=== PATIENT | male | born 1945 | race Caucasian/White ===

== ENCOUNTER 2019-03-27 | Outpatient (CLI) | payer MEDICARE | END 2019-03-27 14:28 | disposition home or self-care (01) | DX: J44.9 Chronic obstructive pulmonary disease, unspecified (principal) | CPT/HCPCS: 71046 ==

== ENCOUNTER 2019-03-27 13:12 | Outpatient (CLI) | payer MEDICARE ==
[~2019-03-27 13:12] MED LIST: ALBUTEROL NEB 2.5 MG/3 ML INH SCH
== END 2019-03-27 13:13 | disposition home or self-care (01) ==
LOC: RT 13:12
PROVIDERS: ATTEND Internal Medicine
DX: J44.9 Chronic obstructive pulmonary disease, unspecified (principal); M16.0 Bilateral primary osteoarthritis of hip
CPT/HCPCS: 71046; 94060

== ENCOUNTER 2019-08-29 12:18 | Inpatient (IN) | payer MEDICARE ==
--- NOTE | 2019-08-29 12:43 | ED Physician Documentation ---
PD HPI DYSPNEA - Stated complaint Stated Complaint: LOW O2 SAT - Chief complaint Chief Complaint: Resp - History obtained from History obtained from: Patient - History of Present Illness Timing - onset: How many days ago (History of COPD and uses an inhaler several times a day at baseline. Normally no oxygen. He has had several days to week of progressive cough and wheezing and trouble breathing. Seen at PMD office and noted to have sats in the low 80s on room air and referred to the ER. He is able to talk in sentences here but some work of breathing) Timing - onset during: Light activity Timing - duration: Days (several days) Timing - details: Gradual onset, Still present Inciting event(s): URI (Has a feeling of weakness, chills, cough for the last several days to week with progressive dyspnea), Exposure (ie smoke) (He had started feeling ill after cleaning out his storage area. It was he did an cemented area so no molds per se but there was some dust to it.). No: Out of meds Improved by: Rest Worsened by: Exertion, Coughing Associated symptoms: Cough, Wheezing. No: Hemoptysis, Chest pain / discomfort, Palpitations, Bilateral edema Similar symptoms before: Has not had sx before (Does have history of COPD with inhaler use over the last 6 months or so but has not had trouble breathing to this degree ever before.) Recently seen: Clinic (Went to the clinic today and was referred up to the ER.) Review of Systems Constitutional: reports: Chills, Myalgias. denies: Fever Nose: reports: Congestion Throat: denies: Sore throat Cardiac: denies: Chest pain / pressure, Palpitations Respiratory: reports: Dyspnea, Cough, Wheezing GI: denies: Nausea, Vomiting, Diarrhea Skin: denies: Rash, Lesions Neurologic: reports: Generalized weakness. denies: Focal weakness, Numbness, Altered mental status, Headache PD PAST MEDICAL HISTORY - Past Medical History Cardiovascular: None Respiratory: COPD Neuro: None Endocrine/Autoimmune: None - Present Medications Home Medications: Ambulatory Orders Medication Instructions Recorded Confirmed Budesonide/Formoterol Fumarate 2 puffs INH BID 08/29/19 08/29/19 [Symbicort 160-4.5 Mcg Inhaler] Ipratropium/Albuterol [Combivent 1 puffs INH QID 08/29/19 08/29/19 Respimat] hydrOXYzine HCL [Hydroxyzine HCl] 25 mg PO QID PRN 08/29/19 08/29/19 predniSONE [Deltasone] 20 mg PO DAILYWM 08/29/19 08/29/19 - Allergies Allergies/Adverse Reactions: Allergies Allergy/AdvReac Type Severity Reaction Status Date / Time Penicillins Allergy Unknown Verified 08/29/19 12:36 PD ED PE NORMAL - Vitals Vital signs reviewed: Yes - General General: Alert and oriented X 3, Well developed/nourished, Other (He is able to talk in sentences. He is having some accessory muscle use and has diminished breath sounds and diffuse wheezing.) - HEENT HEENT: Ears normal, Moist mucous membranes, Pharynx benign - Neck Neck: Supple, no meningeal sign, No adenopathy - Cardiac Cardiac: RRR, No murmur - Respiratory Respiratory: No: Clear bilaterally (Diffuse wheezing with distant breath sounds. There is congested cough. There is no coarse sounds on lungs.) - Abdomen Abdomen: Soft, Non tender - Back Back: No CVA TTP - Derm Derm: Normal color, Warm and dry - Extremities Extremities: No tenderness to palpate, Normal ROM s pain, No edema, No calf tenderness / cord - Neuro Neuro: Alert and oriented X 3, No motor deficit, Normal speech Eye Opening: Spontaneous Motor: Obeys Commands Verbal: Oriented GCS Score: 15 Results - Vitals Vitals: Vital Signs - 24 hr 08/29/19 08/29/19 08/29/19 12:36 12:46 13:44 Temperature 36.5 C Heart Rate 97 87 85 Respiratory 22 22 20 Rate Blood Pressure 102/70 O2 Saturation 83 L 91 L 08/29/19 08/29/19 08/29/19 15:01 15:42 16:00 Temperature Heart Rate 93 95 Respiratory 20 23 20 Rate Blood Pressure 110/75 89/58 L O2 Saturation 96 93 08/29/19 08/29/19 16:18 16:21 Temperature Heart Rate 92 93 Respiratory 20 Rate Blood Pressure 123/87 H O2 Saturation 98 Oxygen O2 Source BIPAP Oxygen Flow Rate 3 - Labs Labs: Laboratory Tests 08/29/19 08/29/19 08/29/19 13:22 13:22 13:22 WBC 7.5 RBC 4.73 Hgb 14.9 Hct 46.2 MCV 97.7 H MCH 31.5 H MCHC 32.3 RDW 13.2 Plt Count 222 MPV 9.6 Neut # (Auto) Not Reportable Lymph # (Auto) Not Reportable [place] # (Auto) Not Reportable Eos # (Auto) Not Reportable Baso # (Auto) Not Reportable Absolute Nucleated RBC Not Reportable Total Counted 100 Band Neuts % (Manual) 19 H Abnorm Lymph % (Manual) 0 Nucleated RBC % Not Reportable Neutrophils # (Manual) 5.6 Lymphocytes # (Manual) 0.5 L Monocytes # (Manual) 1.4 H Eosinophils # (Manual) 0.0 Basophils # (Manual) 0.0 Differential Comment MANUAL DIFFERENTIAL Manual Slide Review Indicated Platelet Estimate NORMAL (130-450,000) Platelet Morphology NORMAL APPEARANCE RBC Morph Micro Appear NORMAL APPEARANCE Sodium Potassium Chloride Carbon Dioxide Anion Gap BUN Creatinine Estimated GFR (MDRD) Glucose Calcium Magnesium Total Bilirubin AST ALT Alkaline Phosphatase Troponin I High Sens 119.1 H* B-Natriuretic Peptide 384 H Total Protein Albumin Globulin Albumin/Globulin Ratio Lipase 08/29/19 13:22 WBC RBC Hgb Hct MCV MCH MCHC RDW Plt Count MPV Neut # (Auto) Lymph # (Auto) [place] # (Auto) Eos # (Auto) Baso # (Auto) Absolute Nucleated RBC Total Counted Band Neuts % (Manual) Abnorm Lymph % (Manual) Nucleated RBC % Neutrophils # (Manual) Lymphocytes # (Manual) Monocytes # (Manual) Eosinophils # (Manual) Basophils # (Manual) Differential Comment Manual Slide Review Platelet Estimate Platelet Morphology RBC Morph Micro Appear Sodium 137 Potassium 4.4 Chloride 99 L Carbon Dioxide 28 Anion Gap 10.0 BUN 35 H Creatinine 0.9 Estimated GFR (MDRD) 82 L Glucose 134 H Calcium 9.2 Magnesium 2.1 Total Bilirubin 0.7 AST 123 H ALT 141 H Alkaline Phosphatase 162 H Troponin I High Sens B-Natriuretic Peptide Total Protein 7.3 Albumin 3.8 Globulin 3.5 Albumin/Globulin Ratio 1.1 Lipase 21 L - Rads (name of study) chest xray Radiology: Prelim report reviewed (Scarring noted in the right lower lung field unchanged from prior. There are no acute infiltrates seen. No pneumothorax.), See rad report PD MEDICAL DECISION MAKING - ED course Complexity details: reviewed results, re-evaluated patient (Use still having some work of breathing and some retractions after several nebulizers. He is still able to talk in sentences. However he did seem to be getting a little tired. Saturations were still adequate. He had a couple of episodes of apparent A. fib for just a few minutes and then back to sinus. We will initiate BiPAP to see if that is easier for him.), considered differential (Sounds like COPD with likely bronchitis and respiratory illness. Concern for potential bacterial so we will give some antibiotics as well as steroids and nebulizer treatments.), d/w patient Departure - Departure Disposition: 66 [facility] DC/Xfer Clinical Impression: COPD exacerbation Acute bronchitis Qualifiers: Bronchitis organism: unspecified organism Qualified Code(s): J20.9 - Acute bronchitis, unspecified Condition: Stable Record reviewed to determine appropriate education?: Yes
[2019-08-29] MEDS ORDERED: MAGNESIUM SULFATE 2 GRAM 2 GM/50 ML BAG IV ONE (12:59)
[2019-08-29] MEDS ORDERED: IPRATROPIUM/ALBUTEROL 3 ML NEB INH STA ×2 (12:59→15:27)
[2019-08-29] MEDS ORDERED: DEXAMETHASONE 10 MG/ML VIAL IVP STA (12:59)
[2019-08-29 13:35] LABS: BASOPHILS % (AUTO) 0.5 %; EOSINOPHILS % (AUTO) 0.5 %; HGB - HEMOGLOBIN 14.9 g/dL (14.0-18.0); LYMPHOCYTES % (AUTO) 5.1 %; MEAN CORPUSCULAR HEMOGLOBIN 31.5 pg (27.0-31.0); MEAN CORPUSCULAR HGB CONC 32.3 g/dL (32.0-36.0); MEAN CORPUSCULAR VOLUME 97.7 fL (80.0-94.0); MEAN PLATELET VOLUME 9.6 fL (7.4-11.4); MONOCYTES % (AUTO) 13.6 %; NEUTROPHILS % (AUTO) 79.9 %; PLT - PLATELET COUNT 222 10^3/uL (130-450); RED BLOOD COUNT 4.73 10^6/uL (4.70-6.10); RED CELL DISTRIBUTION WIDTH 13.2 % (12.0-15.0); WHITE BLOOD COUNT 7.5 x10^3/uL (4.8-10.8)
[2019-08-29 13:48] LABS: ALBUMIN 3.8 g/dL (3.2-5.5); ALBUMIN/GLOBULIN RATIO 1.1 (1.0-2.2); BILIRUBIN,TOTAL 0.7 mg/dL (0.2-1.0); CALCIUM 9.2 mg/dL (8.5-10.3); CREATININE 0.9 mg/dL (0.6-1.2); MAGNESIUM 2.1 mg/dL (1.7-2.8); TOTAL PROTEIN 7.3 g/dL (6.7-8.2)
[2019-08-29] MEDS ORDERED: ALBUTEROL NEB 2.5 MG/3 ML INH STA ×3 (13:56→16:28)
[2019-08-29 14:05] LABS: ABNORMAL LYMPHS % (MANUAL) 0 %; BAND NEUTROPHILS % (MANUAL) 19 %; LYMPHOCYTES # (MANUAL) 0.5 10^3/uL (1.5-3.5); LYMPHOCYTES % (MANUAL) 7 %; MONOCYTES # (MANUAL) 1.4 10^3/uL (0.0-1.0)
[2019-08-29 14:06] LABS: DIFFERENTIAL COMMENT MANUAL DIFFERENTIAL; PLATELET ESTIMATE, MANUAL NORMAL (130-450,000) (NORMAL); PLATELET MORPHOLOGY NORMAL APPEARANCE (NORMAL); RBC MORPHOLOGY (MULTIPLE) NORMAL APPEARANCE (NORMAL)
[2019-08-29] MEDS ORDERED: cefTRIAXone 1 GM VIAL IVP STA (14:15)
[2019-08-29] MEDS ORDERED: AZITHROMYCIN INJ 500 MG in SODIUM CHLORIDE 0.9% 250 ML IV STA (14:16)
--- NOTE | 2019-08-29 14:22 | XRAY Report ---
Reason: chest pain Procedure Date: 08/29/2019 Accession Number: [id number] / [id number] Procedure: XR - Chest 1 View X-Ray CPT Code: 21697 Final Report FULL RESULT: EXAM: CHEST RADIOGRAPHY EXAM DATE: 08/29/2019 01:11 PM. CLINICAL HISTORY: Chest pain. COMPARISON: CHEST 2 VIEW 03/27/2019 2:34 PM. TECHNIQUE: 1 view. FINDINGS: Lungs/Pleura: There is upper lobe hyperlucency and hyperinflation consistent with emphysema. There are moderate reticular densities in the mid lungs. There is flattening of the diaphragms. Negative for a pneumothorax. There is a linear bandlike density at left lung base unchanged. Mediastinum: The heart size is normal. The trachea is midline. There is enlargement of the central pulmonary vessels. Other: None. IMPRESSION: 1. Upper lobe emphysema and hyperinflation with midlung zone airway thickening and vascular crowding without significant change. No new airspace disease. RADIA
[2019-08-29] MEDS ORDERED: LORazepam 2 MG/ML VIAL IVP STA (14:44)
[2019-08-29] MEDS ORDERED: SODIUM CHLORIDE 0.9% 1,000 ML IV ONE (16:28)
[2019-08-29 17:24] LABS: ABG BASE EXCESS -0.5 mmol/L (-2.0-3.0); ABG HCO3 27.1 mmol/L (22.0-26.0); ABG PCO2 56 mmHg (34-45); ABG PO2 133 mmHg (80-100); ABG TCO2 28.8 MMOL/L (21.0-29.0)
[2019-08-29 17:25] LABS: ABG OXYGEN SATURATION 98 % (94-98); ALLEN TEST POSITIVE
--- NOTE | 2019-08-29 18:51 | PHARMACY PROGRESS NOTE ---
- Best Possible Medication History Admit Date and Time: 08/29/19 1738 Processed by: Pharmacy Medication History completed: Yes Patient Interview: Pt unable to participate Secondary Source(s): Physician records, Pharmacy records As the person ultimately responsible for medication therapy, providers are able to order a medication from an existing home medication list in [facility] via the "Reconcile Routine" prior to Confirmation of that medication by personal support worker. Such practice is discouraged except when the physician, in their clinical judgment, deems that a medical need exists for a medication without regard to previous use.
[2019-08-29 18:57] LABS: ABG PH 7.28 (7.35-7.45)
[2019-08-29 18:58] LABS: ABG BASE EXCESS 1.2 mmol/L (-2.0-3.0); ABG HCO3 29.9 mmol/L (22.0-26.0); ABG OXYGEN SATURATION 99 % (94-98); ALLEN TEST POSITIVE
[2019-08-29] MEDS ORDERED: IPRATROPIUM/ALBUTEROL 3 ML NEB INH SCH (19:00)
[2019-08-29 19:01] LABS: ABG PCO2 66 mmHg (34-45); ABG PO2 215 mmHg (80-100)
[2019-08-29] MEDS ORDERED: ALBUTEROL NEB 2.5 MG/3 ML INH PRN (19:26)
[2019-08-29] MEDS ORDERED: MORPHINE 2 MG/ML CARPUJECT IVP PRN (19:29)
[2019-08-29] MEDS ORDERED: ACETAMINOPHEN 325 MG TABLET PO PRN (19:29)
--- NOTE | 2019-08-29 19:32 | HISTORY & PHYSICAL EXAMINATION ---
Chief Complaint - Chief Complaint Chief Complaint: Dyspnea History of Present Illness - Admitted From Admitted From:: Home - History Obtained From Records Reviewed: Yes History obtained from: Patient, EMR, ER Physician, Spouse Exam Limitations: Patient in respiratory distress and on BiPAP - History of Present Illness HPI Comment/Other: This is a 73-year-old male with a past medical history significant for COPD and tobacco use who presents today complaining of dyspnea that began three days ago. Most of the history is obtained from his spouse as the patient is on BiPAP and tachypneic. She states he had been doing well up until Monday when they were organizing their storage which had a lot of dust. She states that since that time he has felt short of breath and this has progressed. He has also had a cough and saw his primary care physician who prescribed him an antibiotic as he felt the patient had bronchitis. She states he continues to smoke a pack a day. He has a history of COPD but did not start taking inhalers until just this past March. She states he does not like to see physicians and therefore does not follow up on a regular basis. The patient reports feeling dyspneic at the moment. He denies any chest pain but continues to have a cough. He states that he has felt like he was wheezing over the past few days. The patient was seen his primary care physician's office today and was found to have oxygen saturations in the low 80s on room air and so he was sent emergency department for further evaluation. In the emergency department, he was found to be afebrile with a temperature of 36.5 C. He was tachycardic with a heart rate of 97. Hypotensive blood pressure 102/70. He was tachypneic with respiratory to 22 and was saturating 83% on room air. This improved to 91% with 3 L of oxygen via nasal cannula. His labs reveal a white count of 7.5 but he did have 19% bands. His BUN is el evated at 35 and a troponin of 119. His LFTs were also elevated as well as a BNP of 384. His EKG reveals a sinus rhythm with flattened T waves in V2 to V4. He was given Decadron, ceftriaxone, azithromycin, and duo nebs in the emergency department. He appeared to began to tire out and was becoming more dyspneic and so an ABG was obtained. His pH was 7.3 and PCO2 was 56 with a PO2 of 133. He w as then placed on BiPAP and medicine was consulted for admission. I did discuss goals of care with the patient and his spouse. The patient would be agreeable to mechanical ventilation as long as it was temporary but does not want CPR. His states that in the past the patient had told her that he would only want to be on a ventilator for a day or 2 at most. She states that he does have a POLST form which she will bring in tomorrow. History - Past Medical History Cardiovascular: reports: None Respiratory: reports: COPD Neuro: reports: None Endocrine/Autoimmune: reports: None - Family & Social History Family History Comment/Other: Difficult to obtain family history at this moment given he is in respiratory distress and on BiPAP. Living arrangement: At home Living Situation: With spouse/s.o. Social History Notes: He continues to smoke one pack per day. He has smoked for over 35 years. Unable to obtain further social history at this time given his respiratory distress and use of BiPAP. - Substance History Use: Uses substance without health or social issues: Tobacco Tobacco Details: Cigarettes Meds/Allgy - Home Medications Home Medications: Ambulatory Orders Medication Instructions Recorded Confirmed Budesonide/Formoterol Fumarate 2 puffs INH BID 08/29/19 08/29/19 [Symbicort 160-4.5 Mcg Inhaler] Ipratropium/Albuterol [Combivent 1 puffs INH QID 08/29/19 08/29/19 Respimat] hydrOXYzine HCL [Hydroxyzine HCl] 25 mg PO QID PRN 08/29/19 08/29/19 predniSONE [Deltasone] 20 mg PO DAILYWM 08/29/19 08/29/19 - Allergies Allergies/Adverse Reactions: Allergies Allergy/AdvReac Type Severity Reaction Status Date / Time Penicillins Allergy Unknown Verified 08/29/19 12:36 Review of Systems - Constitutional Constitutional: reports: Fatigue, Chills, Weakness - Cardiovascular Cariovascular: denies: Chest pain - Respiratory Respiratory: reports: Cough, Wheezing, SOB at rest, SOB with exertion - Gastrointestinal Gastrointestinal: denies: Abdominal pain - All Other Systems All Other Systems: reports: Other (Review of systems is limited given he is on BiPAP and is in respiratory distress) Prior Level of Functionality: Independent with ADL's. Exam - Vital Signs Reviewed Vital Signs: Yes Vital Signs: Vital Signs x48h Temp Pulse Resp BP Pulse Ox 08/29/19 18:35 85 08/29/19 18:30 83 20 126/75 100 08/29/19 18:03 76 25 H 08/29/19 18:00 77 20 124/78 100 08/29/19 17:44 69 08/29/19 17:30 83 21 116/78 100 08/29/19 17:00 76 21 135/80 H 100 08/29/19 16:30 74 20 122/86 H 100 08/29/19 16:21 93 08/29/19 16:18 92 20 123/87 H 98 08/29/19 16:00 20 89/58 L 93 08/29/19 15:42 95 23 110/75 96 08/29/19 15:01 93 20 08/29/19 13:44 85 20 08/29/19 12:46 87 22 91 L 08/29/19 12:36 36.5 C 97 22 102/70 83 L - Physical Exam General Appearance: positive: Alert, Mild distress Eyes Bilateral: positive: Normal inspection, Conjunctivae nml ENT: positive: ENT inspection nml, Other (BiPAP mask in place.) Neck: positive: Nml inspection Respiratory: positive: Wheezes, Other (He is tachypneic with some accessory muscle usage. His breath sounds are quite diminished with faint expiratory wheezes. No rales or rhonchi). negative: No respiratory distress, Breath sounds nml Cardiovascular: positive: Regular rate & rhythm, No murmur. negative: Tachycardia, Bradycardia, Systolic murmur, Diastolic murmur Abdomen: positive: Non-tender, No distention. negative: Tenderness, Guarding, Rebound Skin: positive: No rash, Warm, Dry Extremities: positive: Pedal edema (+1 pitting edema in the bilateral lower ex tremities) Neurologic/Psychiatric: positive: Oriented x3, Other (No focal motor deficits on exam.). negative: Disoriented to person, Disoriented to place, Disoriented to time Conclusion/Plan - Problem List (1) COPD exacerbation Conclusion/Plan: This appears to have been triggered by his recent exposure to dust while organizing his storage. He presented with hypoxia, dyspnea, tachypnea, and e xpiratory wheezes. His x-ray did not reveal an infiltrate. He continued to decline emergency department despite treatment with steroids, antibiotics, duo nebs and therefore he was placed on BiPAP. His initial gas did reveal hypercapnia. We will continue ceftriaxone and azithromycin IV. Continue Solu- Medrol 40 mg [address] him on duo nebs [id number]. Tessalon and Robitussin for his cough. Continue BiPAP and we will trend his ABGs. If he fails BiPAP, then we will intubate him. (2) Acute hypercapnic respiratory failure Conclusion/Plan: This is secondary to his COPD exacerbation. His initial gas reveals a pH 7.3 with a PCO2 of 56. We will continue to trend his ABGs while on BiPAP. If he becomes more hypercapnic or his mental status declines, he will need to be intubated and the patient is agreeable to this. Continue to treat his underlying COPD exacerbation as mentioned above. (3) Demand ischemia Conclusion/Plan: His troponins are elevated but are now trending down. His EKG did show flattening of T waves in leads V2-V4. He is asymptomatic. This is likely demand ischemia in the setting of COPD exacerbation. We will continue to trend his troponin and monitor on telemetry. Obtain echocardiogram in the morning. (4) Elevated LFTs Conclusion/Plan: Etiology of his elevated LFTs and not clear at the moment. We will obtain an ultrasound of the right upper quadrant and trend his LFTs. Based off of the ultrasound, we will consider further work-up while inpatient. (5) Tobacco use Conclusion/Plan: We will place him on a nicotine patch and discuss smoking cessation once his respiratory status improves. - Lab Results Fish Bones: 08/29/19 13:22 08/29/19 13:22 - Diagnostic Imaging Results Diagnostic Imaging Results: positive: Final report reviewed - EKG Results EKG Interpreted Independently: Yes EKG Comparison: No prior EKG EKG Findings: EKG revealed a sinus rhythm with flattening of T waves in leads V2-V4. QTc is n ot prolonged. Core Measures - Anticipated LOS I expect patient to be DC'd or transferred within 96 hours.: Yes - Issues Hospital Issues and Management Plan: COPD exacerbation and acute hypercapnic respiratory failure requiring ICU admission. Will place on BiPAP, IV steroids, Duonebs, and IV antibiotics. - DVT/VTE - Prophylaxis VTE/DVT Device ordered at admit?: Yes VTE/DVT Prophylaxis med ordered at admit?: Yes
[2019-08-29 20:08] LABS: ABG HCO3 26.5 mmol/L (22.0-26.0); ABG OXYGEN SATURATION 97 % (94-98); ABG PCO2 45 mmHg (34-45); ABG PH 7.39 (7.35-7.45); ABG PO2 94 mmHg (80-100); ABG TCO2 27.9 MMOL/L (21.0-29.0)
[2019-08-29 20:09] LABS: ALLEN TEST POSITIVE
[2019-08-29] MEDS: methylPREDNISolone SUCCINATE 40 MG/ML VIAL IVP SCH (21:05)
[2019-08-29] MEDS: HEPARIN 5,000 UNIT/ML VIAL SUBQ SCH (21:05)
[2019-08-29] MEDS: IPRATROPIUM/ALBUTEROL 3 ML NEB INH SCH (21:36)
[2019-08-29] MEDS: CHLORHEXIDINE GLUCONATE 15 ML UDC PO SCH (22:06)
[2019-08-29] MEDS: SODIUM CHLORIDE FLUSH 0.9% 10 ML SYRINGE IVP SCH (23:40)
[2019-08-30] MEDS ORDERED: INSULIN REGULAR HUMAN 300 UNIT/3 ML VIAL SUBQ SCH
--- NOTE | 2019-08-30 02:23 | Ultrasound Report ---
Reason: Elevated LFT's. Procedure Date: 08/29/2019 Accession Number: [id number] / [id number] Procedure: US - Abdomen Limited CPT Code: Final Report FULL RESULT: EXAM: ABDOMEN ULTRASOUND LIMITED, RUQ EXAM DATE: 08/29/2019 11:59 PM. CLINICAL HISTORY: Elevated LFTs. COMPARISON: None. TECHNIQUE: Real-time scanning was performed with static images obtained. FINDINGS: Liver: Enlarged measuring 19.6 cm in length. The liver is nodular in contour. It is mildly heterogeneous in echogenicity. A focal rounded echogenic lesion is seen in the region of the falciform ligament measuring 2.8 x 1.4 cm with internal vascularity. Main portal vein flow: Hepatopetal. Gallbladder: Normal. No stones, wall thickening, or sonographic Quijano's sign. Biliary System: CBD measures 3 mm. No intrahepatic or extrahepatic ductal dilatation. Other: The right kidney is normal in appearance and measures 11.4 cm in length. The visible portions of the pancreas are within normal limits. There is no ascites. IMPRESSION: 1. Enlarged liver with nodular contour suggesting cirrhosis. 2. Focal rounded hyperechoic lesion with internal vascularity near the falciform ligament. The presence of internal vascularity makes focal fatty infiltration less likely. Diagnostic considerations include an atypical hemangioma or adenoma. Further evaluation with an MRI liver with and without contrast is recommended for further evaluation. 3. No evidence of acute cholecystitis or cholelithiasis. RADIA
[2019-08-30] MEDS: SODIUM CHLORIDE FLUSH 0.9% 10 ML SYRINGE IVP PRN ×2 (05:44→15:20)
[2019-08-30] MEDS: methylPREDNISolone SUCCINATE 40 MG/ML VIAL IVP SCH ×3 (05:44→22:48)
[2019-08-30 05:58] LABS: BASOPHILS % (AUTO) 0.3 %; EOSINOPHILS # (AUTO) 0.2 10^3/uL (0.0-0.7); EOSINOPHILS % (AUTO) 3.3 %; LYMPHOCYTES # (AUTO) 0.6 10^3/uL (1.5-3.5); MEAN CORPUSCULAR HEMOGLOBIN 31.4 pg (27.0-31.0); MEAN CORPUSCULAR HGB CONC 31.6 g/dL (32.0-36.0); MEAN CORPUSCULAR VOLUME 99.5 fL (80.0-94.0); MEAN PLATELET VOLUME 9.6 fL (7.4-11.4); MONOCYTES # (AUTO) 0.7 10^3/uL (0.0-1.0); MONOCYTES % (AUTO) 11.2 %; NEUTROPHILS # (AUTO) 4.8 10^3/uL (1.5-6.6); NEUTROPHILS % (AUTO) 75.9 %; PLT - PLATELET COUNT 220 10^3/uL (130-450); RED BLOOD COUNT 4.14 10^6/uL (4.70-6.10); RED CELL DISTRIBUTION WIDTH 13.1 % (12.0-15.0); WHITE BLOOD COUNT 6.4 x10^3/uL (4.8-10.8)
[2019-08-30 06:04] LABS: INR 1.3 (0.8-1.2); PT - PROTHROMBIN TIME 14.3 secs (9.9-12.6)
[2019-08-30 06:12] LABS: HEMOGLOBIN A1C 0.56 g/dL; HEMOGLOBIN A1C % 6.1 % (4.6-6.2)
[2019-08-30 06:13] LABS: BILIRUBIN,DIRECT 0.2 mg/dL (0.1-0.5); BILIRUBIN,TOTAL 0.6 mg/dL (0.2-1.0); CALCIUM 8.9 mg/dL (8.5-10.3); CREATININE 0.7 mg/dL (0.6-1.2); MAGNESIUM 2.4 mg/dL (1.7-2.8); PHOSPHORUS 2.7 mg/dL (2.5-4.6); TOTAL PROTEIN 6.2 g/dL (6.7-8.2)
[2019-08-30 06:14] LABS: ABG BASE EXCESS 4.9 mmol/L (-2.0-3.0); ABG HCO3 31.4 mmol/L (22.0-26.0); ABG OXYGEN SATURATION 98 % (94-98); ABG PCO2 54 mmHg (34-45); ABG PH 7.38 (7.35-7.45); ABG PO2 117 mmHg (80-100); ABG TCO2 33.1 MMOL/L (21.0-29.0)
[2019-08-30 06:15] LABS: ALLEN TEST POSITIVE
[2019-08-30] MEDS: IPRATROPIUM/ALBUTEROL 3 ML NEB INH SCH ×4 (07:38→19:17)
[2019-08-30] MEDS: INSULIN ASPART 300 UNIT/3 ML PEN SUBQ SCH ×4 (09:30→22:44)
[2019-08-30] MEDS: CHLORHEXIDINE GLUCONATE 15 ML UDC PO SCH ×2 (09:30→22:50)
[2019-08-30] MEDS: NICOTINE 14 MG PATCH TOP SCH (09:30)
[2019-08-30] MEDS: HEPARIN 5,000 UNIT/ML VIAL SUBQ SCH ×2 (09:30→22:48)
[2019-08-30] MEDS: SODIUM CHLORIDE FLUSH 0.9% 10 ML SYRINGE IVP SCH ×2 (09:31→17:43)
--- NOTE | 2019-08-30 13:35 | PROVIDER PROGRESS NOTE ---
Assessment/Plan - Problem List (1) COPD exacerbation Assessment/Plan: He is usually not on home oxygen and was only on Combivent inhaler since March. He continues to smoke Continue nebs, supplemental oxygen, Singulair, Mucinex, empiric antibiotics. (2) Acute hypercapnic respiratory failure Assessment/Plan: He required BiPAP started in the ER and was in the ICU on BiPAP with improving ABGs. BiPAP was stopped early this morning, he is tolerating nasal cannula oxygen and feels better. We will transfer out of ICU after about 6 hours off BiPAP. Continue supplemental oxygen. Assessed with activity, PT will be ordered to start tomorrow (3) Acute bronchitis Qualifiers: Bronchitis organism: unspecified organism Qualified Code(s): J20.9 - Acute bronchitis, unspecified Assessment/Plan: Continue ceftriaxone, Zithromax, Mucinex for pulmonary toilet (4) Elevated troponin Assessment/Plan: The troponins trended downward here. We know of no cardiac history. The troponin elevations may have been from acute cor pulmonale An Echo is still pending. (5) Tobacco use Assessment/Plan: Nicotine patch. Smoking cessation. Next (6) Elevated LFTs Assessment/Plan: The increased LFTs have decreased by half. Ultrasound of the abdomen was done that does show cirrhosis of the liver and a nodule of the liver which needs future imaging work-up. There is no alcohol history written in his H&P, as he could not communicate well since he was on BiPAP at admission. He may have had passive liver congestion from acute cor pulmonale. And the troponin elevations may have been from acute cor pulmonale too. I was able to obtain his alcohol history: he admits to drinking 2 scotch drinks per night. Will order 50 ml of alcohol with each dinner. Will order CIWA protocol (7) Cirrhosis of liver Assessment/Plan: Imaging did show cirrhosis of the liver (and a nodule of the liver which needs future imaging work-up). There is no alcohol history written in his H&P, as he could not communicate well since he was on BiPAP at admission. I was able to deterine the alcohol Hx: 2 scotch drinks per night. He may have had passive liver congestion from acute cor pulmonale, since the LFTs improved already - Current Meds Current Meds: Current Medications Generic Name Dose Route Start Last Admin Trade Name Freq PRN Reason Stop Dose Admin Acetaminophen 650 mg 08/29/19 19:29 08/30/19 11:55 Tylenol PO 650 mg Q4HR PRN Administration Pain 1 to 4 Albuterol/Ipratropium 3 ml 08/29/19 20:00 08/30/19 12:06 Duoneb INH 3 ml RTQ4H EDEL Administration Chlorhexidine Gluconate 15 ml 08/29/19 22:00 08/30/19 09:30 Peridex PO 15 ml BID EDEL Administration Heparin Sodium (Porcine) 5,000 unit 08/29/19 21:00 08/30/19 09:30 SUBQ 5,000 unit BID EDEL Administration Insulin Aspart 1 - 9 unit 08/30/19 08:00 08/30/19 12:02 Novolog SUBQ Not Given 0800,1200,1700,2100 [facility] Protocol Methylprednisolone 40 mg 08/29/19 22:00 08/30/19 05:44 Solu-Medrol (40mg Vial) IVP 40 mg TID EDEL Administration Nicotine 1 patch 08/30/19 09:00 08/30/19 09:30 Nicoderm TOP 1 patch DAILY EDEL Administration Sodium Chloride 10 ml 08/30/19 01:00 08/30/19 09:31 Normal Saline Flush 0.9% IVP 10 ml 0100,0900,1700 EDEL Administration Sodium Chloride 10 ml 08/29/19 19:29 08/30/19 05:44 Normal Saline Flush 0.9% IVP 10 ml PRN PRN Administration NEEDED PER PROVIDER ORDERS - Lab Result Fish Bone Diagrams: 08/30/19 05:53 08/30/19 05:53 - Additional Planning My Orders: My Active Orders 08/29/19 18:51 Arterial Blood Gases - RT [RC] .ONCE 08/29/19 18:52 Arterial Blood Gases - RT [RC] .ONCE 08/30/19 13:00 Transfer [Admit \ Transfer \ Status] [RC] .ONCE 08/30/19 21:00 Montelukast [Singulair] 10 mg PO QPM Subjective - Subjective Patient Reports: Feeling Better Nursing Reports: Other (He was able to tolerate BiPAP off since this morning, only on nasal cannula oxygen) Objective Vital Signs: Vital Signs - 24 hr 08/29/19 08/29/19 08/29/19 13:44 15:01 15:42 Temperature Heart Rate 85 93 95 Heart Rate [ Monitoring electrodes] Respiratory 20 20 23 Rate Blood Pressure 110/75 Blood Pressure [Left Brachial artery] O2 Saturation 96 08/29/19 08/29/19 08/29/19 16:00 16:18 16:21 Temperature Heart Rate 92 93 Heart Rate [ Monitoring electrodes] Respiratory 20 20 Rate Blood Pressure 89/58 L 123/87 H Blood Pressure [Left Brachial artery] O2 Saturation 93 98 08/29/19 08/29/19 08/29/19 16:30 17:00 17:30 Temperature Heart Rate 74 76 83 Heart Rate [ Monitoring electrodes] Respiratory 20 21 21 Rate Blood Pressure 122/86 H 135/80 H 116/78 Blood Pressure [Left Brachial artery] O2 Saturation 100 100 100 08/29/19 08/29/19 08/29/19 17:44 18:00 18:03 Temperature Heart Rate 69 77 76 Heart Rate [ Monitoring electrodes] Respiratory 20 25 H Rate Blood Pressure 124/78 Blood Pressure [Left Brachial artery] O2 Saturation 100 08/29/19 08/29/19 08/29/19 18:30 18:35 20:00 Temperature 36.6 C Heart Rate 83 85 Heart Rate [ 84 Monitoring electrodes] Respiratory 20 26 H Rate Blood Pressure 126/75 Blood Pressure 108/76 [Left Brachial artery] O2 Saturation 100 98 08/29/19 08/29/19 08/29/19 21:00 21:32 21:37 Temperature Heart Rate 74 74 Heart Rate [ 78 Monitoring electrodes] Respiratory 20 20 Rate Blood Pressure Blood Pressure 105/74 [Left Brachial artery] O2 Saturation 94 08/29/19 08/29/19 08/30/19 22:00 23:00 00:00 Temperature 37.1 C Heart Rate Heart Rate [ 90 73 69 Monitoring electrodes] Respiratory 23 20 21 Rate Blood Pressure Blood Pressure 126/69 100/70 103/68 [Left Brachial artery] O2 Saturation 96 95 96 08/30/19 08/30/19 08/30/19 01:00 01:55 02:00 Temperature Heart Rate 73 Heart Rate [ 66 70 Monitoring electrodes] Respiratory 22 18 Rate Blood Pressure Blood Pressure 115/63 98/68 [Left Brachial artery] O2 Saturation 95 94 08/30/19 08/30/19 08/30/19 03:00 03:25 03:57 Temperature 37 C 37 C Heart Rate 69 Heart Rate [ 98 Monitoring electrodes] Respiratory 22 Rate Blood Pressure Blood Pressure 105/78 [Left Brachial artery] O2 Saturation 88 L 08/30/19 08/30/19 08/30/19 04:00 05:00 06:00 Temperature Heart Rate Heart Rate [ 70 64 68 Monitoring electrodes] Respiratory 18 20 23 Rate Blood Pressure Blood Pressure 104/67 95/69 109/69 [Left Brachial artery] O2 Saturation 95 96 97 08/30/19 08/30/19 08/30/19 07:00 07:41 08:00 Temperature 36.9 C Heart Rate 78 Heart Rate [ 74 70 Monitoring electrodes] Respiratory 23 18 24 Rate Blood Pressure Blood Pressure 106/79 106/67 [Left Brachial artery] O2 Saturation 91 L 91 L 08/30/19 08/30/19 08/30/19 09:00 10:00 11:00 Temperature Heart Rate Heart Rate [ 86 95 96 Monitoring electrodes] Respiratory 21 24 16 Rate Blood Pressure Blood Pressure 106/68 104/72 107/75 [Left Brachial artery] O2 Saturation 88 L 93 95 08/30/19 08/30/19 12:00 12:06 Temperature 37 C Heart Rate 72 Heart Rate [ 72 Monitoring electrodes] Respiratory 22 18 Rate Blood Pressure Blood Pressure 112/75 [Left Brachial artery] O2 Saturation 93 Oxygen O2 Source Nasal cannula Oxygen Flow Rate 3 I&O (Last 24 Hrs): Intake and Output Totals x24h 08/28/19 08/29/19 08/30/19 23:59 23:59 23:59 Intake Total 300 570 Output Total 0 400 Balance 300 170 General: Alert, Oriented x3, Mild distress (Respiratory rate is still elevated when he speaks, but off BIPAP) HEENT: Mucous membr. moist/pink, Other (Face flushed) Neck: Supple Neuro: Alert, Non Focal Cardiovascular: Regular rate, No murmurs Respiratory: Other (Prolonged expiratory phase, scattered wheezes, no rales or rhonchi.) Abdomen: Soft Extremities: No edema - Results Results: Laboratory Results WBC 6.4 x10^3/uL (4.8-10.8) 08/30/19 05:53 RBC 4.14 10^6/uL (4.70-6.10) L 08/30/19 05:53 Hgb 13.0 g/dL (14.0-18.0) L 08/30/19 05:53 Hct 41.2 % (42.0-52.0) L 08/30/19 05:53 MCV 99.5 fL (80.0-94.0) H 08/30/19 05:53 MCH 31.4 pg (27.0-31.0) H 08/30/19 05:53 MCHC 31.6 g/dL (32.0-36.0) L 08/30/19 05:53 RDW 13.1 % (12.0-15.0) 08/30/19 05:53 Plt Count 220 10^3/uL (130-450) 08/30/19 05:53 MPV 9.6 fL (7.4-11.4) 08/30/19 05:53 Neut # (Auto) 4.8 10^3/uL (1.5-6.6) 08/30/19 05:53 Lymph # (Auto) 0.6 10^3/uL (1.5-3.5) L 08/30/19 05:53 [place] # (Auto) 0.7 10^3/uL (0.0-1.0) 08/30/19 05:53 Eos # (Auto) 0.2 10^3/uL (0.0-0.7) 08/30/19 05:53 Baso # (Auto) 0.0 10^3/uL (0.0-0.1) 08/30/19 05:53 Absolute Nucleated RBC 0.00 x10^3/uL 08/30/19 05:53 Total Counted 100 08/29/19 13:22 Band Neuts % (Manual) 19 % (0-10) H 08/29/19 13:22 Abnorm Lymph % (Manual) 0 % 08/29/19 13:22 Nucleated RBC % 0.0 /100WBC 08/30/19 05:53 Neutrophils # (Manual) 5.6 10^3/uL (1.5-6.6) 08/29/19 13:22 Lymphocytes # (Manual) 0.5 10^3/uL (1.5-3.5) L 08/29/19 13:22 Monocytes # (Manual) 1.4 10^3/uL (0.0-1.0) H 08/29/19 13:22 Eosinophils # (Manual) 0.0 10^3/uL (0-0.7) 08/29/19 13:22 Basophils # (Manual) 0.0 10^3/uL (0-0.1) 08/29/19 13:22 Differential Comment MANUAL DIFFERENTIAL 08/29/19 13:22 Manual Slide Review Indicated 08/29/19 13:22 Platelet Estimate NORMAL (130-450,000) (NORMAL) 08/29/19 13:22 Platelet Morphology NORMAL APPEARANCE (NORMAL) 08/29/19 13:22 RBC Morph Micro Appear NORMAL APPEARANCE (NORMAL) 08/29/19 13:22 PT 14.3 secs (9.9-12.6) H 08/30/19 05:53 INR 1.3 (0.8-1.2) H 08/30/19 05:53 Bld Gas Analysis Time 0613 08/30/19 06:00 Sample Site RIGHT RADIAL 08/30/19 06:00 ABG pH 7.38 (7.35-7.45) 08/30/19 06:00 ABG pCO2 54 mmHg (34-45) H 08/30/19 06:00 ABG pO2 117 mmHg (80-100) H 08/30/19 06:00 ABG HCO3 31.4 mmol/L (22.0-26.0) H 08/30/19 06:00 ABG Total CO2 33.1 MMOL/L (21.0-29.0) H 08/30/19 06:00 ABG O2 Saturation 98 % (94-98) 08/30/19 06:00 ABG Base Excess 4.9 mmol/L (-2.0-3.0) H 08/30/19 06:00 Sathish Test POSITIVE 08/30/19 06:00 O2 Delivery Device BiPAP 08/30/19 06:00 Vent Mode SYNCHRONOUS/TIMES 08/29/19 18:22 FiO2 40.00 08/30/19 06:00 EPAP 7 cmH2O 08/30/19 06:00 IPAP 14 cmH2O 08/30/19 06:00 Sodium 137 mmol/L (135-145) 08/30/19 05:53 Potassium 4.8 mmol/L (3.5-5.0) 08/30/19 05:53 Chloride 102 mmol/L (101-111) 08/30/19 05:53 Carbon Dioxide 30 mmol/L (21-32) 08/30/19 05:53 Anion Gap 5.0 (6-13) L 08/30/19 05:53 BUN 30 mg/dL (6-20) H 08/30/19 05:53 Creatinine 0.7 mg/dL (0.6-1.2) 08/30/19 05:53 Estimated GFR (MDRD) 110 (>89) 08/30/19 05:53 Glucose 141 mg/dL (70-100) H 08/30/19 05:53 POC Whole Bld Glucose 118 mg/dL (70 - 100) H 08/30/19 08:11 Glycated Hemoglobin 6.1 % (4.6-6.2) 08/30/19 05:53 Estim Average Glucose 128 (70-100) H 08/30/19 05:53 Calcium 8.9 mg/dL (8.5-10.3) 08/30/19 05:53 Phosphorus 2.7 mg/dL (2.5-4.6) 08/30/19 05:53 Magnesium 2.4 mg/dL (1.7-2.8) 08/30/19 05:53 Total Bilirubin 0.6 mg/dL (0.2-1.0) 08/30/19 05:53 Direct Bilirubin 0.2 mg/dL (0.1-0.5) 08/30/19 05:53 AST 45 IU/L (10-42) H 08/30/19 05:53 ALT 91 IU/L (10-60) H 08/30/19 05:53 Alkaline Phosphatase 116 IU/L (42-121) 08/30/19 05:53 Troponin I High Sens 72.7 ng/L (2.3-19.7) H* 08/29/19 17:10 B-Natriuretic Peptide 384 pg/mL (5-100) H 08/29/19 13:22 Total Protein 6.2 g/dL (6.7-8.2) L 08/30/19 05:53 Albumin 3.0 g/dL (3.2-5.5) L 08/30/19 05:53 Globulin 3.2 g/dL (2.1-4.2) 08/30/19 05:53 Albumin/Globulin Ratio 1.1 (1.0-2.2) 08/29/19 13:22 Lipase 21 U/L (22-51) L 08/29/19 13:22 Nasal Screen MRSA (PCR) NEGATIVE (NEGATIVE) 08/29/19 20:33
[2019-08-30] MEDS: AZITHROMYCIN INJ 500 MG in SODIUM CHLORIDE 0.9% 250 ML IV SCH (14:01)
[2019-08-30] MEDS: cefTRIAXone 2 GM in SODIUM CHLORIDE 0.9% MINIBAG 100 ML IV SCH (15:20)
[2019-08-30] MEDS: MULTIVITAMIN W/MINERALS TABLET PO SCH (17:43)
[2019-08-30] MEDS: LIQUOR 50 ML BOTTLE PO SCH (17:43)
[2019-08-30] MEDS ORDERED: LORazepam 2 MG/ML VIAL IVP PRN (19:11)
[2019-08-30 19:31] LABS: BASOPHILS % (AUTO) 0.3 %; HGB - HEMOGLOBIN 12.7 g/dL (14.0-18.0); LYMPHOCYTES # (AUTO) 0.5 10^3/uL (1.5-3.5); LYMPHOCYTES % (AUTO) 6.2 %; MEAN CORPUSCULAR HEMOGLOBIN 31.1 pg (27.0-31.0); MEAN CORPUSCULAR HGB CONC 31.7 g/dL (32.0-36.0); MEAN PLATELET VOLUME 9.4 fL (7.4-11.4); MONOCYTES # (AUTO) 0.5 10^3/uL (0.0-1.0); MONOCYTES % (AUTO) 6.3 %; NEUTROPHILS # (AUTO) 6.5 10^3/uL (1.5-6.6); NEUTROPHILS % (AUTO) 86.5 %; PLT - PLATELET COUNT 239 10^3/uL (130-450); RED BLOOD COUNT 4.09 10^6/uL (4.70-6.10); RED CELL DISTRIBUTION WIDTH 13.2 % (12.0-15.0); WHITE BLOOD COUNT 7.5 x10^3/uL (4.8-10.8)
[2019-08-30] MEDS: MONTELUKAST 10 MG TABLET PO SCH (22:53)
[2019-08-31] MEDS: SODIUM CHLORIDE FLUSH 0.9% 10 ML SYRINGE IVP SCH ×3 (05:23→16:12)
[2019-08-31] MEDS: methylPREDNISolone SUCCINATE 40 MG/ML VIAL IVP SCH ×3 (05:23→21:39)
[2019-08-31 06:22] LABS: BASOPHILS % (AUTO) 0.2 %; HGB - HEMOGLOBIN 13.4 g/dL (14.0-18.0); LYMPHOCYTES # (AUTO) 0.8 10^3/uL (1.5-3.5); LYMPHOCYTES % (AUTO) 8.5 %; MEAN CORPUSCULAR HEMOGLOBIN 30.9 pg (27.0-31.0); MEAN CORPUSCULAR HGB CONC 31.8 g/dL (32.0-36.0); MEAN CORPUSCULAR VOLUME 97.2 fL (80.0-94.0); MEAN PLATELET VOLUME 9.7 fL (7.4-11.4); MONOCYTES # (AUTO) 0.6 10^3/uL (0.0-1.0); MONOCYTES % (AUTO) 6.8 %; NEUTROPHILS # (AUTO) 7.6 10^3/uL (1.5-6.6); NEUTROPHILS % (AUTO) 83.6 %; PLT - PLATELET COUNT 252 10^3/uL (130-450); RED BLOOD COUNT 4.34 10^6/uL (4.70-6.10); WHITE BLOOD COUNT 9.1 x10^3/uL (4.8-10.8)
[2019-08-31 06:26] LABS: INR 1.2 (0.8-1.2); PT - PROTHROMBIN TIME 13.6 secs (9.9-12.6)
[2019-08-31 06:38] LABS: ALBUMIN 3.2 g/dL (3.2-5.5); BILIRUBIN,DIRECT 0.2 mg/dL (0.1-0.5); BILIRUBIN,TOTAL 0.5 mg/dL (0.2-1.0); CREATININE 0.7 mg/dL (0.6-1.2); MAGNESIUM 2.5 mg/dL (1.7-2.8); PHOSPHORUS 3.1 mg/dL (2.5-4.6); TOTAL PROTEIN 6.3 g/dL (6.7-8.2)
[2019-08-31] MEDS: IPRATROPIUM/ALBUTEROL 3 ML NEB INH SCH ×4 (08:10→19:12)
[2019-08-31] MEDS: NICOTINE 14 MG PATCH TOP SCH (10:03)
[2019-08-31] MEDS: MULTIVITAMIN W/MINERALS TABLET PO SCH (10:03)
[2019-08-31] MEDS: guaiFENesin 100 MG/5 ML UDC PO PRN (10:03)
[2019-08-31] MEDS: CHLORHEXIDINE GLUCONATE 15 ML UDC PO SCH ×2 (10:03→22:03)
[2019-08-31] MEDS: THIAMINE 100 MG TABLET PO SCH (10:03)
[2019-08-31] MEDS: LACTOBACILLUS RHAMNOSUS GG CAPSULE PO SCH (10:03)
[2019-08-31] MEDS: INSULIN ASPART 300 UNIT/3 ML PEN SUBQ SCH ×4 (10:04→21:50)
[2019-08-31] MEDS: HEPARIN 5,000 UNIT/ML VIAL SUBQ SCH ×2 (10:04→21:50)
--- NOTE | 2019-08-31 13:36 | PROVIDER PROGRESS NOTE ---
Assessment/Plan - Problem List (1) COPD exacerbation Assessment/Plan: Patient has improved moderately. He still has tachypnea with walking across the room and desaturates to 84% on room air. His cough has loosened slightly but is still difficult to expectorate. He started walking with PT and is independent. He had his and 2 daughters at bedside today when I visited him. He and the family had many questions regarding the diagnosis of COPD, how to use oxygen, how to check lung status, how to start smoking cessation, who should F/U on him. These questions were all answered to their satisfaction. It appears that this is very first COPD exacerbation, from the types of questions that were asked. He had only been on a Combivent inhaler and only started that 3 mos ago. There is a pending appointment with a new Core Extruder, per the . Continue with IV steroids, nebs, empiric antibiotics, Mucinex, Singulair and supplemental oxygen. (2) Acute hypercapnic respiratory failure Assessment/Plan: Patient at presentation, had an acidotic pH and was CO2 retaining and was tiring and failing and needed admission to the ICU on BiPAP for 1 night. He was then transition to nasal cannula the following morning and came out of the ICU yesterday evening. (3) Elevated troponin Assessment/Plan: These did have a significant elevation. There were no EKG changes that paralleled this. The echo showed no LV regional wall motion abnormalities therefore this was probably demand ischemia that raise the troponins. The Echo does show significant RV enlargement with suspected cor pulmonale from suspected longstanding lung disease (4) Cor pulmonale Assessment/Plan: This is a new diagnosis for this patient. (5) Tobacco use Assessment/Plan: He is getting a nicotine patch here. With the discussion above and family present in room, he was offered to have more aggressive smoking cessation with discharge on Wellbutrin plus nicotine patch. The patient stated he is not ready for quitting since this is his "comfort method". (6) Elevated LFTs Assessment/Plan: Elevation of LFTs have decreased. The ultrasound ordered at admission was consistent with cirrhosis, another nodule is found that also needs further evaluation as an outpatient. 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 Yesterday I was able to speak to him and discussed the findings of cirrhosis on ultrasound. Patient had told me "I am not surprised at all because I drink alcohol heavily". He admitted to 2 drinks of scotch per day. He is on a CIWA protocol with iv Ativan if needed, while here. He also gets 50 mL of alcohol with dinner, ordered to use here to prevent alcohol withdrawal. This diagnosis of liver cirrhosis was not discussed with the and 2 daughters today. (7) Cirrhosis of liver Assessment/Plan: As above - Current Meds Current Meds: Current Medications Generic Name Dose Route Start Last Admin Trade Name Freq PRN Reason Stop Dose Admin Acetaminophen 650 mg 08/29/19 19:29 08/30/19 11:55 Tylenol PO 650 mg Q4HR PRN Administration Pain 1 to 4 Albuterol/Ipratropium 3 ml 08/29/19 20:00 08/31/19 12:10 Duoneb INH 3 ml RTQ4H EDEL Administration Alcohol 50 ml 08/30/19 18:00 08/30/19 17:43 Liquor PO 50 ml 1800 EDEL Administration Chlorhexidine Gluconate 15 ml 08/29/19 22:00 08/31/19 10:03 Peridex PO 15 ml BID EDEL Administration Guaifenesin 100 mg 08/29/19 20:19 08/31/19 10:03 Robitussin Liquid PO 100 mg Q6HR PRN Administration Cough Heparin Sodium (Porcine) 5,000 unit 08/29/19 21:00 08/31/19 10:04 SUBQ 5,000 unit BID EDEL Administration Azithromycin 500 mg/ Sodium 250 mls @ 250 mls/hr 08/30/19 14:00 08/30/19 17:43 Chloride IV Infused Q24H EDEL Infusion Ceftriaxone Sodium 2 gm/ 100 mls @ 200 mls/hr 08/30/19 15:00 08/30/19 16:06 Sodium Chloride IV Infused Q24H EDEL Infusion Insulin Aspart 1 - 9 unit 08/30/19 08:00 08/31/19 12:22 Novolog SUBQ Not Given 0800,1200,1700,2100 [facility] Protocol Lactobacillus Rhamnosus 1 cap 08/31/19 09:00 08/31/19 10:03 Culturelle PO 1 cap DAILY EDEL Administration Methylprednisolone 40 mg 08/29/19 22:00 08/31/19 05:23 Solu-Medrol (40mg Vial) IVP 40 mg TID EDEL Administration Montelukast Sodium 10 mg 08/30/19 21:00 08/30/19 22:53 Singulair PO 10 mg QPM EDEL Administration Multivitamins/Minerals 1 tab 08/30/19 16:00 08/31/19 10:03 Theragran M PO 1 tab DAILYWM EDEL Administration Nicotine 1 patch 08/30/19 09:00 08/31/19 10:03 Nicoderm TOP 1 patch DAILY EDEL Administration Sodium Chloride 10 ml 08/30/19 01:00 08/31/19 10:05 Normal Saline Flush 0.9% IVP 10 ml 0100,0900,1700 EDEL Administration Sodium Chloride 10 ml 08/29/19 19:29 08/30/19 15:20 Normal Saline Flush 0.9% IVP 10 ml PRN PRN Administration NEEDED PER PROVIDER ORDERS Thiamine HCl 100 mg 08/31/19 09:00 08/31/19 10:03 Vitamin B-1 PO 100 mg DAILY EDEL Administration - Lab Result Fish Bone Diagrams: 08/31/19 05:45 08/31/19 05:45 - Additional Planning My Orders: My Active Orders 08/30/19 16:00 Multivitamin W/Minerals [Theragran M] 1 tab PO DAILYWM 08/30/19 18:00 Liquor 50 ml PO 1800 08/30/19 19:11 LORazepam INJ [Ativan Inj (Vial)] 2 mg IVP Q30M PRN 08/30/19 19:12 CIWA - AR Score Card [RC] Routine Routine Neuro Check [RC] Routine Routine 08/30/19 21:00 Montelukast [Singulair] 10 mg PO QPM 08/31/19 Evaluate and Treat PT [PT] Routine 08/31/19 09:00 Lactobacillus Rhamnosus GG [Culturelle] 1 cap PO DAILY Thiamine [Vitamin B-1] 100 mg PO DAILY Objective Vital Signs: Vital Signs - 24 hr 08/30/19 08/30/19 08/30/19 15:02 15:37 17:00 Temperature 37.1 C 36.3 C L Heart Rate 78 Heart Rate [ Activity] Heart Rate [ 88 76 Brachial] Respiratory 18 16 20 Rate Respiratory Rate [With Activity] Blood Pressure 100/66 102/63 [Left Brachial artery] Blood Pressure [Right Brachial artery] O2 Saturation 92 94 O2 Saturation [ With Activity] 08/30/19 08/30/19 08/30/19 19:18 21:00 23:22 Temperature 36.6 C 37.0 C Heart Rate 94 Heart Rate [ Activity] Heart Rate [ 102 H 82 Brachial] Respiratory 18 18 18 Rate Respiratory Rate [With Activity] Blood Pressure 114/67 [Left Brachial artery] Blood Pressure 113/92 H [Right Brachial artery] O2 Saturation 90 L 95 O2 Saturation [ With Activity] 08/31/19 08/31/19 08/31/19 05:00 08:00 08:09 Temperature 36.9 C 36.8 C Heart Rate 66 Heart Rate [ Activity] Heart Rate [ 79 66 Brachial] Respiratory 20 20 16 Rate Respiratory Rate [With Activity] Blood Pressure [Left Brachial artery] Blood Pressure 126/75 114/64 [Right Brachial artery] O2 Saturation 93 94 O2 Saturation [ With Activity] 08/31/19 08/31/19 08/31/19 12:07 12:14 12:42 Temperature 36.5 C Heart Rate 71 Heart Rate [ 86 Activity] Heart Rate [ 84 Brachial] Respiratory 20 22 Rate Respiratory 25 H Rate [With Activity] Blood Pressure [Left Brachial artery] Blood Pressure 120/75 [Right Brachial artery] O2 Saturation 94 O2 Saturation [ 90 L With Activity] Oxygen O2 Source [With Activity] Nasal cannula O2 Source Nasal cannula Oxygen Flow Rate 3 I&O (Last 24 Hrs): Intake and Output Totals x24h 08/29/19 08/30/19 08/31/19 23:59 23:59 23:59 Intake Total 300 1700 480 Output Total 0 400 Balance 300 1300 480 General: Alert, Oriented x3, Other (He appears to trail off and fall asleep when the discussion was with his or 2 daughters in the room.) HEENT: Other (Lips cyanotic, wearing O2 n.c., wrinkled and flushed, leathery skin of face) Neck: Supple, No JVD Neuro: Alert, Non Focal Cardiovascular: Regular rate, No murmurs, Other (Vetically displaced PMI) Respiratory: Wheezes, Other (Scatterd wheezes, hyperinflated chest, very prolonged expiratory phase, no rhonchi heard.) Abdomen: Soft Extremities: No edema - Results Results: Laboratory Results WBC 9.1 x10^3/uL (4.8-10.8) 08/31/19 05:45 RBC 4.34 10^6/uL (4.70-6.10) L 08/31/19 05:45 Hgb 13.4 g/dL (14.0-18.0) L 08/31/19 05:45 Hct 42.2 % (42.0-52.0) 08/31/19 05:45 MCV 97.2 fL (80.0-94.0) H 08/31/19 05:45 MCH 30.9 pg (27.0-31.0) 08/31/19 05:45 MCHC 31.8 g/dL (32.0-36.0) L 08/31/19 05:45 RDW 13.0 % (12.0-15.0) 08/31/19 05:45 Plt Count 252 10^3/uL (130-450) 08/31/19 05:45 MPV 9.7 fL (7.4-11.4) 08/31/19 05:45 Neut # (Auto) 7.6 10^3/uL (1.5-6.6) H 08/31/19 05:45 Lymph # (Auto) 0.8 10^3/uL (1.5-3.5) L 08/31/19 05:45 [place] # (Auto) 0.6 10^3/uL (0.0-1.0) 08/31/19 05:45 Eos # (Auto) 0.0 10^3/uL (0.0-0.7) 08/31/19 05:45 Baso # (Auto) 0.0 10^3/uL (0.0-0.1) 08/31/19 05:45 Absolute Nucleated RBC 0.02 x10^3/uL 08/31/19 05:45 Total Counted 100 08/29/19 13:22 Band Neuts % (Manual) 19 % (0-10) H 08/29/19 13:22 Abnorm Lymph % (Manual) 0 % 08/29/19 13:22 Nucleated RBC % 0.2 /100WBC 08/31/19 05:45 Neutrophils # (Manual) 5.6 10^3/uL (1.5-6.6) 08/29/19 13:22 Lymphocytes # (Manual) 0.5 10^3/uL (1.5-3.5) L 08/29/19 13:22 Monocytes # (Manual) 1.4 10^3/uL (0.0-1.0) H 08/29/19 13:22 Eosinophils # (Manual) 0.0 10^3/uL (0-0.7) 08/29/19 13:22 Basophils # (Manual) 0.0 10^3/uL (0-0.1) 08/29/19 13:22 Differential Comment MANUAL DIFFERENTIAL 08/29/19 13:22 Manual Slide Review Indicated 08/29/19 13:22 Platelet Estimate NORMAL (130-450,000) (NORMAL) 08/29/19 13:22 Platelet Morphology NORMAL APPEARANCE (NORMAL) 08/29/19 13:22 RBC Morph Micro Appear NORMAL APPEARANCE (NORMAL) 08/29/19 13:22 PT 13.6 secs (9.9-12.6) H 08/31/19 05:45 INR 1.2 (0.8-1.2) 08/31/19 05:45 Bld Gas Analysis Time 0613 08/30/19 06:00 Sample Site RIGHT RADIAL 08/30/19 06:00 ABG pH 7.38 (7.35-7.45) 08/30/19 06:00 ABG pCO2 54 mmHg (34-45) H 08/30/19 06:00 ABG pO2 117 mmHg (80-100) H 08/30/19 06:00 ABG HCO3 31.4 mmol/L (22.0-26.0) H 08/30/19 06:00 ABG Total CO2 33.1 MMOL/L (21.0-29.0) H 08/30/19 06:00 ABG O2 Saturation 98 % (94-98) 08/30/19 06:00 ABG Base Excess 4.9 mmol/L (-2.0-3.0) H 08/30/19 06:00 Sathish Test POSITIVE 08/30/19 06:00 O2 Delivery Device BiPAP 08/30/19 06:00 Vent Mode SYNCHRONOUS/TIMES 08/29/19 18:22 FiO2 40.00 08/30/19 06:00 EPAP 7 cmH2O 08/30/19 06:00 IPAP 14 cmH2O 08/30/19 06:00 Sodium 139 mmol/L (135-145) 08/31/19 05:45 Potassium 4.7 mmol/L (3.5-5.0) 08/31/19 05:45 Chloride 101 mmol/L (101-111) 08/31/19 05:45 Carbon Dioxide 31 mmol/L (21-32) 08/31/19 05:45 Anion Gap 7.0 (6-13) 08/31/19 05:45 BUN 31 mg/dL (6-20) H 08/31/19 05:45 Creatinine 0.7 mg/dL (0.6-1.2) 08/31/19 05:45 Estimated GFR (MDRD) 110 (>89) 08/31/19 05:45 Glucose 160 mg/dL (70-100) H 08/31/19 05:45 POC Whole Bld Glucose 144 mg/dL (70 - 100) H 08/31/19 11:55 Glycated Hemoglobin 6.1 % (4.6-6.2) 08/30/19 05:53 Estim Average Glucose 128 (70-100) H 08/30/19 05:53 Calcium 9.0 mg/dL (8.5-10.3) 08/31/19 05:45 Phosphorus 3.1 mg/dL (2.5-4.6) 08/31/19 05:45 Magnesium 2.5 mg/dL (1.7-2.8) 08/31/19 05:45 Total Bilirubin 0.5 mg/dL (0.2-1.0) 08/31/19 05:45 Direct Bilirubin 0.2 mg/dL (0.1-0.5) 08/31/19 05:45 AST 80 IU/L (10-42) H 08/31/19 05:45 ALT 115 IU/L (10-60) H 08/31/19 05:45 Alkaline Phosphatase 101 IU/L (42-121) 08/31/19 05:45 Troponin I High Sens 72.7 ng/L (2.3-19.7) H* 08/29/19 17:10 B-Natriuretic Peptide 384 pg/mL (5-100) H 08/29/19 13:22 Total Protein 6.3 g/dL (6.7-8.2) L 08/31/19 05:45 Albumin 3.2 g/dL (3.2-5.5) 08/31/19 05:45 Globulin 3.1 g/dL (2.1-4.2) 08/31/19 05:45 Albumin/Globulin Ratio 1.1 (1.0-2.2) 08/29/19 13:22 Lipase 21 U/L (22-51) L 08/29/19 13:22 Nasal Screen MRSA (PCR) NEGATIVE (NEGATIVE) 08/29/19 20:33
[2019-08-31] MEDS: AZITHROMYCIN INJ 500 MG in SODIUM CHLORIDE 0.9% 250 ML IV SCH (14:00)
[2019-08-31] MEDS: cefTRIAXone 2 GM in SODIUM CHLORIDE 0.9% MINIBAG 100 ML IV SCH (16:12)
[2019-08-31] MEDS: LIQUOR 50 ML BOTTLE PO SCH (17:31)
[2019-08-31] MEDS: BENZONATATE 100 MG CAPSULE PO PRN (21:38)
[2019-08-31] MEDS: MONTELUKAST 10 MG TABLET PO SCH (21:38)
[2019-09-01] MEDS: SODIUM CHLORIDE FLUSH 0.9% 10 ML SYRINGE IVP SCH ×4 (00:02→23:32)
[2019-09-01 05:46] LABS: BASOPHILS % (AUTO) 0.4 %; HGB - HEMOGLOBIN 13.2 g/dL (14.0-18.0); LYMPHOCYTES # (AUTO) 0.8 10^3/uL (1.5-3.5); LYMPHOCYTES % (AUTO) 7.8 %; MEAN CORPUSCULAR HEMOGLOBIN 30.8 pg (27.0-31.0); MEAN CORPUSCULAR HGB CONC 31.6 g/dL (32.0-36.0); MEAN CORPUSCULAR VOLUME 97.7 fL (80.0-94.0); MEAN PLATELET VOLUME 9.3 fL (7.4-11.4); MONOCYTES # (AUTO) 0.5 10^3/uL (0.0-1.0); NEUTROPHILS # (AUTO) 8.7 10^3/uL (1.5-6.6); NEUTROPHILS % (AUTO) 84.3 %; PLT - PLATELET COUNT 246 10^3/uL (130-450); RED BLOOD COUNT 4.28 10^6/uL (4.70-6.10); WHITE BLOOD COUNT 10.3 x10^3/uL (4.8-10.8)
[2019-09-01 06:02] LABS: ALBUMIN 2.8 g/dL (3.2-5.5); BILIRUBIN,DIRECT 0.1 mg/dL (0.1-0.5); BILIRUBIN,TOTAL 0.5 mg/dL (0.2-1.0); CALCIUM 9.3 mg/dL (8.5-10.3); CREATININE 0.7 mg/dL (0.6-1.2); MAGNESIUM 2.2 mg/dL (1.7-2.8); PHOSPHORUS 3.9 mg/dL (2.5-4.6); TOTAL PROTEIN 5.9 g/dL (6.7-8.2)
[2019-09-01] MEDS: methylPREDNISolone SUCCINATE 40 MG/ML VIAL IVP SCH ×3 (06:44→21:15)
[2019-09-01] MEDS: BENZONATATE 100 MG CAPSULE PO PRN (06:44)
[2019-09-01] MEDS: MULTIVITAMIN W/MINERALS TABLET PO SCH (08:16)
[2019-09-01] MEDS: DOCUSATE SODIUM 250 MG CAPSULE PO SCH (08:16)
[2019-09-01] MEDS: THIAMINE 100 MG TABLET PO SCH (08:17)
[2019-09-01] MEDS: NICOTINE 14 MG PATCH TOP SCH (08:17)
[2019-09-01] MEDS: LACTOBACILLUS RHAMNOSUS GG CAPSULE PO SCH (08:17)
[2019-09-01] MEDS: HEPARIN 5,000 UNIT/ML VIAL SUBQ SCH ×2 (08:17→21:08)
[2019-09-01] MEDS: guaiFENesin 100 MG/5 ML UDC PO PRN ×2 (08:17→23:55)
[2019-09-01] MEDS: CHLORHEXIDINE GLUCONATE 15 ML UDC PO SCH ×2 (08:17→20:56)
[2019-09-01] MEDS: INSULIN ASPART 300 UNIT/3 ML PEN SUBQ SCH ×4 (08:18→21:14)
[2019-09-01] MEDS: polyethylene glycoL 3350 17 GM PACKET PO SCH (08:24)
[2019-09-01] MEDS: IPRATROPIUM/ALBUTEROL 3 ML NEB INH SCH ×4 (09:00→19:02)
--- NOTE | 2019-09-01 10:55 | PROVIDER PROGRESS NOTE ---
Assessment/Plan - Problem List (1) COPD exacerbation Assessment/Plan: Patient Still has tachypnea with getting up to shower this morning. For some reason his cough is much worse. Much more productive, but phlegm is clear. No fever, no chills. Yesterday he walked with physical therapy. He was 90 to 93% saturated at rest on 2-1/2 L nasal cannula. With exertion he dropped to 84% and required 4 L to recovery. With the 4 L he was up to 94%. At rest, he was able to come off the oxygen and be 88% on room air. But again dropped to 84% on return to walking to his bed. Today he got up to go to the bathroom, shower, and he is wiped out. Coughing spasms that cause him to be purplish red in the face. Short of breath. Plan is to continue current treatment with antibiotics, nebulizers, steroids and reassess For discharge tomorrow. (2) Acute hypercapnic respiratory failure Resolved Assessment/Plan: Patient at presentation, had an acidotic pH and was CO2 retaining and was tiring and failing and needed admission to the ICU on BiPAP for 1 night. He was then transition to nasal cannula the following morning and came out of the ICU 1/3 evening (3) Elevated troponin Assessment/Plan: These did have a significant elevation. 119.1>72.7. There were no EKG changes that paralleled this. The echo showed no LV regional wall motion abnormalities therefore this was probably demand ischemia that raise the troponins. The Echo does show significant RV enlargement with suspected cor pulmonale from suspected longstanding lung disease (4) Cor pulmonale Assessment/Plan: This is a new diagnosis for this patient.Treatment usually consist of treating the underlying cause. Smoking cessation and chronic oxygen administration are mainstays. Bronchodilation, long-term inhaled steroids, etc. follow. He is not polycythemic otherwise he would qualify for phlebotomy. Long-term oxygen supplementation would be indicated if he qualifies. RV volume overload should be treated with diuretics and he is currently not in that phase. Rarely theophylline and sympathomimetic amines could improve diaphragmatic excursion. (5) Tobacco use Assessment/Plan: He is getting a nicotine patch here. With the discussion above and family present in room, he was offered to have more aggressive smoking cessation with discharge on Wellbutrin plus nicotine patch. The patient stated he is not ready for quitting since this is his "comfort method". (6) Elevated LFTs Assessment/Plan: Elevation of LFTs have decreased. The ultrasound ordered at admission was consistent with cirrhosis, another nodule is found that also needs further evaluation as an outpatient. I would also suspect he has some hepatic congestion from problem #4. 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 However, he was able to speak to hospitalist 08/30 and the findings of cirrhosis on ultrasound were discussed. Patient had told the hospitalist "I am not surprised at all because I drink alcohol heavily". He admitted to 2 drinks of scotch per day. Plan: He is on a CIWA protocol with iv Ativan if needed, while here. He also gets 50 mL of alcohol with dinner, ordered to use here to prevent alcohol withdrawal. This diagnosis of liver cirrhosis was not discussed with the and 2 daughters 08/31/19. I will try to discuss with them today when they show up. (7) Cirrhosis of liver Assessment/Plan: As above - Current Meds Current Meds: Current Medications Generic Name Dose Route Start Last Admin Trade Name Freq PRN Reason Stop Dose Admin Acetaminophen 650 mg 08/29/19 19:29 08/30/19 11:55 Tylenol PO 650 mg Q4HR PRN Administration Pain 1 to 4 Albuterol/Ipratropium 3 ml 08/29/19 20:00 09/01/19 09:00 Duoneb INH 3 ml RTQ4H EDEL Administration Alcohol 50 ml 08/30/19 18:00 08/31/19 17:31 Liquor PO 50 ml 1800 EDEL Administration Benzonatate 100 mg 08/29/19 20:19 09/01/19 06:44 Tessalon PO 100 mg TID PRN Administration Cough Chlorhexidine Gluconate 15 ml 08/29/19 22:00 09/01/19 08:17 Peridex PO 15 ml BID EDEL Administration Docusate Sodium 250 - 500 mg 09/01/19 09:00 09/01/19 08:16 Colace 250mg Capsule PO 250 mg DAILY EDEL Administration Guaifenesin 100 mg 08/29/19 20:19 09/01/19 08:17 Robitussin Liquid PO 100 mg Q6HR PRN Administration Cough Heparin Sodium (Porcine) 5,000 unit 08/29/19 21:00 09/01/19 08:17 SUBQ 5,000 unit BID EDEL Administration Azithromycin 500 mg/ Sodium 250 mls @ 250 mls/hr 08/30/19 14:00 08/31/19 15:33 Chloride IV Infused Q24H EDEL Infusion Ceftriaxone Sodium 2 gm/ 100 mls @ 200 mls/hr 08/30/19 15:00 08/31/19 16:43 Sodium Chloride IV Infused Q24H EDEL Infusion Insulin Aspart 1 - 9 unit 08/30/19 08:00 09/01/19 08:18 Novolog SUBQ Not Given 0800,1200,1700,2100 [facility] Protocol Lactobacillus Rhamnosus 1 cap 08/31/19 09:00 09/01/19 08:17 Culturelle PO 1 cap DAILY EDEL Administration Methylprednisolone 40 mg 08/29/19 22:00 09/01/19 06:44 Solu-Medrol (40mg Vial) IVP 40 mg TID EDEL Administration Montelukast Sodium 10 mg 08/30/19 21:00 08/31/19 21:38 Singulair PO 10 mg QPM EDEL Administration Morphine Sulfate 1 mg 08/29/19 19:29 08/31/19 21:39 Morphine (Carpuject) IVP 1 mg Q4HR PRN Administration Dyspnea Multivitamins/Minerals 1 tab 08/30/19 16:00 09/01/19 08:16 Theragran M PO 1 tab DAILYWM EDEL Administration Nicotine 1 patch 08/30/19 09:00 09/01/19 08:17 Nicoderm TOP 1 patch DAILY EDEL Administration Polyethylene Glycol 17 gm 09/01/19 09:00 09/01/19 08:24 Miralax PO Not Given DAILY EDEL Sodium Chloride 10 ml 08/30/19 01:00 09/01/19 08:17 Normal Saline Flush 0.9% IVP 10 ml 0100,0900,1700 EDEL Administration Sodium Chloride 10 ml 08/29/19 19:29 08/30/19 15:20 Normal Saline Flush 0.9% IVP 10 ml PRN PRN Administration NEEDED PER PROVIDER ORDERS Thiamine HCl 100 mg 08/31/19 09:00 09/01/19 08:17 Vitamin B-1 PO 100 mg DAILY EDEL Administration - Lab Result Lab results reviewed: Yes Fish Bone Diagrams: 09/01/19 05:30 09/01/19 05:30 Subjective - Subjective Patient Reports: Cough (worse. He is having coughing spasms to the point that they cut off his breath, he gets short of breath, face turns purple-red. He is not bringing up the phlegm and is swallowing it.), Shortness of Breath (In spite of the shortness of breath, he was able to get up and take a shower. He was exhausted afterwards and it is been a couple of hours where he has gone back to sleep. Still requiring the same amount of oxygen.) Nursing Reports: Cough, Shortness of Breath Objective Vital Signs: Vital Signs - 24 hr 08/31/19 08/31/19 08/31/19 12:07 12:14 12:42 Temperature 36.5 C Heart Rate 71 Heart Rate [ 86 Activity] Heart Rate [ 84 Brachial] Heart Rate [ Monitoring electrodes] Respiratory 20 22 Rate Respiratory 25 H Rate [With Activity] Blood Pressure [Left Brachial artery] Blood Pressure 120/75 [Right Brachial artery] O2 Saturation 94 O2 Saturation [ 90 L With Activity] 08/31/19 08/31/19 08/31/19 16:08 16:29 19:10 Temperature 36.7 C Heart Rate 135 H 93 Heart Rate [ Activity] Heart Rate [ 78 Brachial] Heart Rate [ Monitoring electrodes] Respiratory 16 22 18 Rate Respiratory Rate [With Activity] Blood Pressure [Left Brachial artery] Blood Pressure 112/70 [Right Brachial artery] O2 Saturation 93 O2 Saturation [ With Activity] 08/31/19 08/31/19 09/01/19 20:48 23:43 04:37 Temperature 36.8 C 36.5 C 36.7 C Heart Rate Heart Rate [ Activity] Heart Rate [ 63 60 Brachial] Heart Rate [ 98 Monitoring electrodes] Respiratory 24 16 18 Rate Respiratory Rate [With Activity] Blood Pressure 131/70 H [Left Brachial artery] Blood Pressure 117/78 132/85 H [Right Brachial artery] O2 Saturation 92 95 95 O2 Saturation [ With Activity] 09/01/19 09/01/19 08:23 09:00 Temperature 37.1 C Heart Rate 68 Heart Rate [ Activity] Heart Rate [ 80 Brachial] Heart Rate [ Monitoring electrodes] Respiratory 20 16 Rate Respiratory Rate [With Activity] Blood Pressure [Left Brachial artery] Blood Pressure 145/111 H [Right Brachial artery] O2 Saturation 94 O2 Saturation [ With Activity] Oxygen O2 Source [With Activity] Nasal cannula O2 Source Nasal cannula Oxygen Flow Rate 3 I&O (Last 24 Hrs): Intake and Output Totals x24h 08/30/19 08/31/19 09/01/19 23:59 23:59 23:59 Intake Total 1700 1070 300 Output Total 400 Balance 1300 1070 300 General: Alert, Oriented x3, Moderate distress (Intermittent cough that cuts off his air, causes his face to turn purple-red), Other (Avuncular, elderly white male who looks stated age, well groomed. Asleep, requires a gentle shaking of shoulder to wake up. He is momentarily confused and then oriented within about 5 seconds.) HEENT: PERRLA, EOMI Neck: No JVD Lymphatic: no adenopathy Neuro: Alert, CN 2-12 Grossly Intact (Slightly deaf), Oriented Times 3, Other (Got up to shower without any assist) Cardiovascular: Regular rate, Other (No murmurs rubs or gallops.) Respiratory: Chest non-tender, Other (The cough is so phlegmy and rhoncous I am surprised that his lungs are completely clear. No crackles rhonchi or wheezing.) Abdomen: Normal bowel sounds, Soft, No tenderness, No hepatospenomegaly Extremities: No clubbing, No cyanosis, Normal pulses, Other (trace ankle edema) - Results Results: Laboratory Results WBC 10.3 x10^3/uL (4.8-10.8) 09/01/19 05:30 RBC 4.28 10^6/uL (4.70-6.10) L 09/01/19 05:30 Hgb 13.2 g/dL (14.0-18.0) L 09/01/19 05:30 Hct 41.8 % (42.0-52.0) L 09/01/19 05:30 MCV 97.7 fL (80.0-94.0) H 09/01/19 05:30 MCH 30.8 pg (27.0-31.0) 09/01/19 05:30 MCHC 31.6 g/dL (32.0-36.0) L 09/01/19 05:30 RDW 13.0 % (12.0-15.0) 09/01/19 05:30 Plt Count 246 10^3/uL (130-450) 09/01/19 05:30 MPV 9.3 fL (7.4-11.4) 09/01/19 05:30 Neut # (Auto) 8.7 10^3/uL (1.5-6.6) H 09/01/19 05:30 Lymph # (Auto) 0.8 10^3/uL (1.5-3.5) L 09/01/19 05:30 [place] # (Auto) 0.5 10^3/uL (0.0-1.0) 09/01/19 05:30 Eos # (Auto) 0.0 10^3/uL (0.0-0.7) 09/01/19 05:30 Baso # (Auto) 0.0 10^3/uL (0.0-0.1) 09/01/19 05:30 Absolute Nucleated RBC 0.00 x10^3/uL 09/01/19 05:30 Total Counted 100 08/29/19 13:22 Band Neuts % (Manual) 19 % (0-10) H 08/29/19 13:22 Abnorm Lymph % (Manual) 0 % 08/29/19 13:22 Nucleated RBC % 0.0 /100WBC 09/01/19 05:30 Neutrophils # (Manual) 5.6 10^3/uL (1.5-6.6) 08/29/19 13:22 Lymphocytes # (Manual) 0.5 10^3/uL (1.5-3.5) L 08/29/19 13:22 Monocytes # (Manual) 1.4 10^3/uL (0.0-1.0) H 08/29/19 13:22 Eosinophils # (Manual) 0.0 10^3/uL (0-0.7) 08/29/19 13:22 Basophils # (Manual) 0.0 10^3/uL (0-0.1) 08/29/19 13:22 Differential Comment MANUAL DIFFERENTIAL 08/29/19 13:22 Manual Slide Review Indicated 08/29/19 13:22 Platelet Estimate NORMAL (130-450,000) (NORMAL) 08/29/19 13:22 Platelet Morphology NORMAL APPEARANCE (NORMAL) 08/29/19 13:22 RBC Morph Micro Appear NORMAL APPEARANCE (NORMAL) 08/29/19 13:22 PT 13.6 secs (9.9-12.6) H 08/31/19 05:45 INR 1.2 (0.8-1.2) 08/31/19 05:45 Bld Gas Analysis Time 0613 08/30/19 06:00 Sample Site RIGHT RADIAL 08/30/19 06:00 ABG pH 7.38 (7.35-7.45) 08/30/19 06:00 ABG pCO2 54 mmHg (34-45) H 08/30/19 06:00 ABG pO2 117 mmHg (80-100) H 08/30/19 06:00 ABG HCO3 31.4 mmol/L (22.0-26.0) H 08/30/19 06:00 ABG Total CO2 33.1 MMOL/L (21.0-29.0) H 08/30/19 06:00 ABG O2 Saturation 98 % (94-98) 08/30/19 06:00 ABG Base Excess 4.9 mmol/L (-2.0-3.0) H 08/30/19 06:00 Sathish Test POSITIVE 08/30/19 06:00 O2 Delivery Device BiPAP 08/30/19 06:00 Vent Mode SYNCHRONOUS/TIMES 08/29/19 18:22 FiO2 40.00 08/30/19 06:00 EPAP 7 cmH2O 08/30/19 06:00 IPAP 14 cmH2O 08/30/19 06:00 Sodium 142 mmol/L (135-145) 09/01/19 05:30 Potassium 4.8 mmol/L (3.5-5.0) 09/01/19 05:30 Chloride 101 mmol/L (101-111) 09/01/19 05:30 Carbon Dioxide 34 mmol/L (21-32) H 09/01/19 05:30 Anion Gap 7.0 (6-13) 09/01/19 05:30 BUN 26 mg/dL (6-20) H 09/01/19 05:30 Creatinine 0.7 mg/dL (0.6-1.2) 09/01/19 05:30 Estimated GFR (MDRD) 110 (>89) 09/01/19 05:30 Glucose 146 mg/dL (70-100) H 09/01/19 05:30 POC Whole Bld Glucose 128 mg/dL (70 - 100) H 09/01/19 08:13 Glycated Hemoglobin 6.1 % (4.6-6.2) 08/30/19 05:53 Estim Average Glucose 128 (70-100) H 08/30/19 05:53 Calcium 9.3 mg/dL (8.5-10.3) 09/01/19 05:30 Phosphorus 3.9 mg/dL (2.5-4.6) 09/01/19 05:30 Magnesium 2.2 mg/dL (1.7-2.8) 09/01/19 05:30 Total Bilirubin 0.5 mg/dL (0.2-1.0) 09/01/19 05:30 Direct Bilirubin 0.1 mg/dL (0.1-0.5) 09/01/19 05:30 AST 40 IU/L (10-42) 09/01/19 05:30 ALT 97 IU/L (10-60) H 09/01/19 05:30 Alkaline Phosphatase 90 IU/L (42-121) 09/01/19 05:30 Troponin I High Sens 72.7 ng/L (2.3-19.7) H* 08/29/19 17:10 B-Natriuretic Peptide 384 pg/mL (5-100) H 08/29/19 13:22 Total Protein 5.9 g/dL (6.7-8.2) L 09/01/19 05:30 Albumin 2.8 g/dL (3.2-5.5) L 09/01/19 05:30 Globulin 3.1 g/dL (2.1-4.2) 09/01/19 05:30 Albumin/Globulin Ratio 1.1 (1.0-2.2) 08/29/19 13:22 Lipase 21 U/L (22-51) L 08/29/19 13:22 Nasal Screen MRSA (PCR) NEGATIVE (NEGATIVE) 08/29/19 20:33 ABX Reporting Has patient been on IV antibiotics over the past 48 hours?: Yes Current Medications - Current Medications Current Medications: Active Medications Acetaminophen (Tylenol) 650 mg PO Q4HR PRN PRN Reason: Pain 1 to 4 Last Admin: 08/30/19 11:55 Dose: 650 mg Albuterol () 2.5 mg INH RTQ4H PRN PRN Reason: Wheezing Albuterol/Ipratropium (Duoneb) 3 ml INH RTQ4H [facility] Last Admin: 09/01/19 09:00 Dose: 3 ml Alcohol (Liquor) 50 ml PO 1800 [facility] Last Admin: 08/31/19 17:31 Dose: 50 ml Benzonatate (Tessalon) 100 mg PO TID PRN PRN Reason: Cough Last Admin: 09/01/19 06:44 Dose: 100 mg Chlorhexidine Gluconate (Peridex) 15 ml PO BID [facility] Last Admin: 09/01/19 08:17 Dose: 15 ml Docusate Sodium (Colace 250mg Capsule) 250 - 500 mg PO DAILY [facility] Last Admin: 09/01/19 08:16 Dose: 250 mg Guaifenesin (Robitussin Liquid) 100 mg PO Q6HR PRN PRN Reason: Cough Last Admin: 09/01/19 08:17 Dose: 100 mg Heparin Sodium (Porcine) () 5,000 unit SUBQ BID [facility] Last Admin: 09/01/19 08:17 Dose: 5,000 unit Azithromycin 500 mg/ Sodium (Chloride) 250 mls @ 250 mls/hr IV Q24H [facility] Last Infusion: 08/31/19 15:33 Dose: Infused Ceftriaxone Sodium 2 gm/ (Sodium Chloride) 100 mls @ 200 mls/hr IV Q24H [facility] Last Infusion: 08/31/19 16:43 Dose: Infused Insulin Aspart (Novolog) 1 - 9 unit SUBQ 0800,1200,1700,2100 [facility]; Protocol Last Admin: 09/01/19 08:18 Dose: Not Given Lactobacillus Rhamnosus (Culturelle) 1 cap PO DAILY [facility] Last Admin: 09/01/19 08:17 Dose: 1 cap Lorazepam (Ativan Inj (Vial)) 2 mg IVP Q30M PRN; Protocol PRN Reason: CIWA >8 Methylprednisolone (Solu-Medrol (40mg Vial)) 40 mg IVP TID [facility] Last Admin: 09/01/19 06:44 Dose: 40 mg Montelukast Sodium (Singulair) 10 mg PO QPM [facility] Last Admin: 08/31/19 21:38 Dose: 10 mg Morphine Sulfate (Morphine (Carpuject)) 1 mg IVP Q4HR PRN PRN Reason: Dyspnea Last Admin: 08/31/19 21:39 Dose: 1 mg Multivitamins/Minerals (Theragran M) 1 tab PO DAILYWM [facility] Last Admin: 09/01/19 08:16 Dose: 1 tab Nicotine (Nicoderm) 1 patch TOP DAILY [facility] Last Admin: 09/01/19 08:17 Dose: 1 patch Polyethylene Glycol (Miralax) 17 gm PO DAILY [facility] Last Admin: 09/01/19 08:24 Dose: Not Given Sodium Chloride (Normal Saline Flush 0.9%) 10 ml IVP 0100,0900,1700 [facility] Last Admin: 09/01/19 08:17 Dose: 10 ml Sodium Chloride (Normal Saline Flush 0.9%) 10 ml IVP PRN PRN PRN Reason: NEEDED PER PROVIDER ORDERS Last Admin: 08/30/19 15:20 Dose: 10 ml Thiamine HCl (Vitamin B-1) 100 mg PO DAILY [facility] Last Admin: 09/01/19 08:17 Dose: 100 mg Budesonide/Formoterol Fumarate [Symbicort 160-4.5 Mcg Inhaler] 2 puffs INH BID 08/29/19 Ipratropium/Albuterol [Combivent Respimat] 1 puffs INH QID 08/29/19 hydrOXYzine HCL [Hydroxyzine HCl] 25 mg PO QID PRN 08/29/19 predniSONE [Deltasone] 20 mg PO DAILYWM 08/29/19
--- NOTE | 2019-09-01 13:09 | ADVANCE CARE PLANNING NOTE ---
Advance Care Planning - Planning Encounter Date: 09/01/19 Time: 13:06 Purpose: Establish goals of care in the context of educating him and his and his daughter about his COPD and cor pulmonale Parties in Attendance: Patient, , daughter from [place], and hospitalist Dr. Padron Decisional Capacity of the Patient: and daughter agree that the patient still pays bills, makes his own decisions and is alert, oriented to person, time, place - Diagnosis for Encounter (1) COPD exacerbation Summary: He is a tobacco user as well chronic alcohol use. Smoked up until his admission August 29. While he has chronic daily dyspnea on exertion, chronic daily cough with mild phlegm production, he is not on home oxygen. Pulmonary function studies done March 17, 2019 show good patient effort and cooperation. Patient has frequent incessant coughing at the end of all maneuvers. It was mentioned that he would be a good candidate for pulmonary rehab once he was tobacco free. Actual prebronchodilator volumes were FVC 2.13 L (50% pred), FEV1 0.92 L (29% of pred), FEV1/FVC 43%. (58% of pred). After bronchodilators his FVC was 2.35, FEV1 is 0.91, FEV1/FVC was 39%. O2 sat was 91% on room air. No DLCO. - Encounter Subjective/Patient's Story: He was born in [place]. Stayed there until he left for college in [place]. 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 Moved to [place] just to explore the [facility]. Met his who is the sister of 1 of his partners in the firm. His next step was to go to [place] but he never went because he ended up staying in [place] with his . They ended up having 3 daughters together. They moved to the [place] in the 1970s [place] continued his general magistrate of [place]. All 3 of his daughters do not live on the [place]. They live scattered across the country and in [place]. He has 3 granddaughters. If he is to get any support from a practical perspective, it comes from his . 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 He is a very chatty man, a great raconteur, and between his love of logic, puzzles, word games, and conversation combined with his love of gambling, it was a perfect 5 years. He also loves to smoke and drink. Smoking and drinking is his main coping mechanism with self criticism and anxiety. It requires quite of bit of cajoling on his 's part to even think about treating those problems. He has been slowly deteriorating with regards to mobility and endurance because of his cough, shortness of breath. And he really did not start getting treated until March 2019. He was referred to pulmonary rehab on May 06. But he just, at the time, did not feel it was worth it. [place] to come up to the hospital department the does cardiopulmonary rehab. As the fall turned into winter, his breathing became worse and worse. Because he is forbidden from been from smoking inside the house, he has to go outside to smoke. And because he likes doing his word games and puzzles while smoking, he had to do those outside as well. That activity has been limited because it's too cold outside right now so is depressed and cranky. He stopped driving for the most part because he gets so tired and he has "a wandering eye" where he just does not focus. While his still drives him around, he does have access to the car in case she needs to leave. He knows that he can drive a short distance. But he prefers his to do all the driving. He does not like to cook. Never has. The 2 dishes that are easiest for him to cook are scrambled eggs and baked brownies. He and his split the duties of paying the bills. For the most part, and daughter endorse the fact that he is still mentally intact. The notices that he is getting increasingly more defensive and slightly paranoid because he is getting a little bit more forgetful. His endurance is limited. Combine the lack of activity and the slight lack of mentation with being questioned on it, he gets pretty defensive and cranky. Depression has been mentioned in passing. They live in a 3 story home. The main living area is between 2 flights of stairs. So there is no direct entry to the kitchen,/living room/bedroom. Right now their bedroom is on the third level. His mentions that the patient's father had a chair lift that would take him upstairs. He protest and said he never wanted that for himself. Even with a chair lift, his father ended up having to sell his home to live in a more structured environment. He and his both know that they need to sell their home, but they thought they had some time to do that before his disability became more evident. His usually does a week in [place] with her high school group of friends. She had to cancel that week right now because he is in the hospital. She is getting ready to go to [place] with her daughter to stay with her daughter and do a visit there on September 05. Daughter and asked if it is possible for Mr. Morales to go down to [place] with them. He protests. Says he does not want to go. Wants to stay home. I and point out that he isn't cooking, can't go up stair without significant rosales, and needs help. Who is going to help him if he's alone? He makes statements with regards to "less is better". He wants to avoid coming to the hospital as much as possible. He is also very firm in stating that he never wants to go to a [place] [facility] facility or assisted living facility. But he does not want to stop smoking and drinking. His daughter points out that the episode where he was acutely short of breath, and that resulted in this hospitalization, scared the bejesus out of him and them. She asked that if he could stop smoking and drinking, improve his breathing, avoid hospitalization, would it be worth it? then asked if he could do cardiopulmonary rehab, and it would improve his length of life to provide a good quality of life, would it be worth it? His answer is honest where he says "I do not know." Objective/Medical Story: This is a 73-year-old male with a past medical history significant for COPD and tobacco use who presents today complaining of dyspnea that began three days ago. Most of the history is obtained from his spouse as the patient is on BiPAP and tachypneic. She states he had been doing well up until Monday when they were organizing their storage which had a lot of dust. She states that since that time he has felt short of breath and this has progressed. He has also had a cough and saw his primary care physician who prescribed him an antibiotic as he felt the patient had bronchitis. She states he continues to smoke a pack a day. He has a history of COPD but did not start taking inhalers until just this past March. She states he does not like to see physicians and therefore does not follow up on a regular basis. The patient reports feeling dyspneic at the moment. He denies any chest pain but continues to have a cough. He states that he has felt like he was wheezing over the past few days. The patient was seen his primary care physician's office today and was found to have oxygen saturations in the low 80s on room air and so he was sent emergency department for further evaluation. In the emergency department, he was found to be afebrile with a temperature of 36.5 C. He was tachycardic with a heart rate of 97. Hypotensive blood pressure 102/70. He was tachypneic with respiratory to 22 and was saturating 83% on room air. This improved to 91% with 3 L of oxygen via nasal cannula. His labs reveal a white count of 7.5 but he did have 19% bands. His BUN is elevated at 35 and a troponin of 119. His LFTs were also elevated as well as a BNP of 384. His EKG reveals a sinus rhythm with flattened T waves in V2 to V4. He was given Decadron, ceftriaxone, azithromycin, and duo nebs in the emergency department. He appeared to began to tire out and was becoming more dyspneic and so an ABG was obtained. His pH was 7.3 and PCO2 was 56 with a PO2 of 133. He was then placed on BiPAP and medicine was consulted for admission. I did discuss goals of care with the patient and his spouse. The patient would be agreeable to mechanical ventilation as long as it was temporary but does not want CPR. His states that in the past the patient had told her that he would only want to be on a ventilator for a day or 2 at most. She states that he does have a POLST form which she will bring in tomorrow. History - Past Medical History Cardiovascular: reports: None Respiratory: reports: COPD Neuro: reports: None Endocrine/Autoimmune: reports: None He smokes 1 pack/day for the last 35 years. Drinks several drinks of scotch every day. Has never gone through withdrawal. He is now on day 4 of hospitalization. He is received antibiotics, steroids, nebulizers. Goals of Care: 1. He wants to learn as much as possible about his lungs, there are damage, and any damage to his heart 2. He would like to remain independent in his own home. But he has not made any forward plans with regards to mobility issues or practical issues of taking care of a handicapped person in their home. 3. He is DO NOT RESUSCITATE. A POLST form has already been filled out and is in the clinic chart with Dr. Copeland. 4. He wants to avoid any hospitalizations but at the same time, is terrified he will have another acute sob episode that brought him in. Plan: 1. 30 minutes was spent discussing COPD, lung inflammation and the end result of pulmonary hypertension, cor pulmonale. I also explained the link between his smoking and how it causes COPD and the COPD then causes pulmonary hypertension and that in turn causes the cor pulmonale seen on ECHO. 2. I will type up our recommendations with regards to how he should take his nebulizers, long-acting bronchodilators, 3. In order to help him stop smoking, he is reluctantly willing to continue the medications we started in the hospital. As such he will be continued on Singulair, nicotine patch, lorazepam, and we will start Wellbutrin. 4. I have explained that this is a preliminary conversation about establishing goals of care and what he wants down the road. He and his daughters, as well as his , have many conversations ahead of them with regards to tailoring our treatment to his goals. He wanted me to guarantee that our current treatment would result in no hospitalizations down the road. I told him I could not guarantee that. Which then returns us to the conversation of how smoking leads to COPD and cor pulmonale. While I cannot reverse the damage that is already present, we can improve the quality of his life if he stop smoking and drinking, and we may be able to prolong his life somewhat if he does cardiopulmonary rehab. 5. Consider Palliative Care consult for him at home. 6. POLST form read in his outpatient chart and confirms DNR with limited intervention. Signed and dated 04/25/19. Copied and placed in hospital queue for scanning. 7. Start making plans for how to modify his home for disabled living. Or, as his points out, move to downsize. Code Status: Do Not Attempt Resuscitation Time spent on advance care plannin minutes
[2019-09-01] MEDS: AZITHROMYCIN INJ 500 MG in SODIUM CHLORIDE 0.9% 250 ML IV SCH (14:10)
[2019-09-01] MEDS: SODIUM CHLORIDE FLUSH 0.9% 10 ML SYRINGE IVP PRN (14:11)
[2019-09-01] MEDS: cefTRIAXone 2 GM in SODIUM CHLORIDE 0.9% MINIBAG 100 ML IV SCH (15:45)
[2019-09-01] MEDS: LIQUOR 50 ML BOTTLE PO SCH (17:21)
[2019-09-01] MEDS: MONTELUKAST 10 MG TABLET PO SCH (20:57)
[2019-09-02] MEDS: SODIUM CHLORIDE FLUSH 0.9% 10 ML SYRINGE IVP PRN ×2 (05:41→21:31)
[2019-09-02] MEDS: methylPREDNISolone SUCCINATE 40 MG/ML VIAL IVP SCH ×3 (05:41→21:31)
[2019-09-02] MEDS: IPRATROPIUM/ALBUTEROL 3 ML NEB INH SCH ×4 (07:53→20:26)
--- NOTE | 2019-09-02 09:06 | PROVIDER PROGRESS NOTE ---
Assessment/Plan - Problem List (1) COPD exacerbation Assessment/Plan: Patient continues to have tachypnea with simple exertion of getting out of bed. cough and cough spasms continue and are worse over 48 hours. Lung exam worse today. Much more productive cough, but phlegm is clear. No fever, no chills. 08/31 he walked with physical therapy. He was 90 to 93% saturated at rest on 2- 1/2 L nasal cannula. With exertion he dropped to 84% and required 4 L to recovery. With the 4 L he was up to 94%. At rest, he was able to come off the oxygen and be 88% on room air. But again dropped to 84% on return to walking to his bed. 09/01 he got up to go to the bathroom, shower, and he is wiped out. Coughing spasms that cause him to be purplish red in the face. Short of breath. Plan is to continue current treatment with antibiotics, nebulizers, steroids and after being reassessed for discharge today, will hold off check CXR Encourage him to use Acapella. (2) Acute hypercapnic respiratory failure Resolved Assessment/Plan: Patient at presentation, had an acidotic pH and was CO2 retaining and was tiring and failing and needed admission to the ICU on BiPAP for 1 night. He was then transition to nasal cannula the following morning and came out of the ICU 08/30 evening (3) Elevated troponin Assessment/Plan: These did have a significant elevation. 119.1>72.7. There were no EKG changes that paralleled this. The echo showed no LV regional wall motion abnormalities therefore this was probably demand ischemia that raise the troponins. The Echo does show significant RV enlargement with suspected cor pulmonale from suspected longstanding lung disease (4) Cor pulmonale stable Assessment/Plan: This is a new diagnosis for this patient.Treatment usually consist of treating the underlying cause. Smoking cessation and chronic oxygen administration are mainstays. Bronchodilation, long-term inhaled steroids, etc. follow. He is not polycythemic otherwise he would qualify for phlebotomy. Long-term oxygen supplementation would be indicated if he qualifies. RV volume overload should be treated with diuretics and he is currently not in that phase. Rarely theophylline and sympathomimetic amines could improve diaphragmatic excursion. (5) Tobacco use Assessment/Plan: He is getting a nicotine patch here. With the discussion above and family present in room, he was offered to have more aggressive smoking cessation with discharge on Wellbutrin plus nicotine patch. The patient stated he is not ready for quitting since this is his "co mfort method". (6) Elevated LFTs Assessment/Plan: Elevation of LFTs have decreased. The ultrasound ordered at admission was consistent with cirrhosis, another nodule is found that also needs further evaluation as an outpatient. I would also suspect he has some hepatic congestion from problem #4. He could not give detailed history because of being on BiPAP to the adult nurse practitioner. However, he was able to speak to hospitalist 08/30 and the findings of cirrhosis on ultrasound were discussed. Patient had told the hospitalist "I am not surprised at all because I drink alcohol heavily". He admitted to 2 drinks of scotch per day. Plan: He is on a CIWA protocol with iv Ativan if needed, while here. He also gets 50 mL of alcohol with dinner, ordered to use here to prevent alcohol withdrawal. This diagnosis of liver cirrhosis was discussed with the and 1 daughters 09/01/19. (7) Cirrhosis of liver Assessment/Plan: As above - Current Meds Current Meds: Current Medications Generic Name Dose Route Start Last Admin Trade Name Freq PRN Reason Stop Dose Admin Acetaminophen 650 mg 08/29/19 19:29 08/30/19 11:55 Tylenol PO 650 mg Q4HR PRN Administration Pain 1 to 4 Albuterol/Ipratropium 3 ml 08/29/19 20:00 09/02/19 07:53 Duoneb INH 3 ml RTQ4H EDEL Administration Alcohol 50 ml 08/30/19 18:00 09/01/19 17:21 Liquor PO 50 ml 1800 EDEL Administration Benzonatate 100 mg 08/29/19 20:19 09/01/19 06:44 Tessalon PO 100 mg TID PRN Administration Cough Chlorhexidine Gluconate 15 ml 08/29/19 22:00 09/01/19 20:56 Peridex PO 15 ml BID EDEL Administration Docusate Sodium 250 - 500 mg 09/01/19 09:00 09/01/19 08:16 Colace 250mg Capsule PO 250 mg DAILY EDEL Administration Guaifenesin 100 mg 08/29/19 20:19 09/01/19 23:55 Robitussin Liquid PO 100 mg Q6HR PRN Administration Cough Heparin Sodium (Porcine) 5,000 unit 08/29/19 21:00 09/01/19 21:08 SUBQ 5,000 unit BID EDEL Administration Azithromycin 500 mg/ Sodium 250 mls @ 250 mls/hr 08/30/19 14:00 09/01/19 15:10 Chloride IV Infused Q24H EDEL Infusion Ceftriaxone Sodium 2 gm/ 100 mls @ 200 mls/hr 08/30/19 15:00 09/01/19 16:15 Sodium Chloride IV Infused Q24H EDEL Infusion Insulin Aspart 1 - 9 unit 08/30/19 08:00 09/01/19 21:14 Novolog SUBQ 1 unit 0800,1200,1700,2100 EDEL Administration Protocol Lactobacillus Rhamnosus 1 cap 08/31/19 09:00 09/01/19 08:17 Culturelle PO 1 cap DAILY EDEL Administration Methylprednisolone 40 mg 08/29/19 22:00 09/02/19 05:41 Solu-Medrol (40mg Vial) IVP 40 mg TID EDEL Administration Montelukast Sodium 10 mg 08/30/19 21:00 09/01/19 20:57 Singulair PO 10 mg QPM EDEL Administration Morphine Sulfate 1 mg 08/29/19 19:29 08/31/19 21:39 Morphine (Carpuject) IVP 1 mg Q4HR PRN Administration Dyspnea Multivitamins/Minerals 1 tab 08/30/19 16:00 09/01/19 08:16 Theragran M PO 1 tab DAILYWM EDEL Administration Nicotine 1 patch 08/30/19 09:00 09/01/19 08:17 Nicoderm TOP 1 patch DAILY EDEL Administration Polyethylene Glycol 17 gm 09/01/19 09:00 09/01/19 08:24 Miralax PO Not Given DAILY EDEL Sodium Chloride 10 ml 08/30/19 01:00 09/01/19 23:32 Normal Saline Flush 0.9% IVP 10 ml 0100,0900,1700 EDEL Administration Sodium Chloride 10 ml 08/29/19 19:29 09/02/19 05:41 Normal Saline Flush 0.9% IVP 10 ml PRN PRN Administration NEEDED PER PROVIDER ORDERS Thiamine HCl 100 mg 08/31/19 09:00 09/01/19 08:17 Vitamin B-1 PO 100 mg DAILY EDEL Administration - Lab Result Fish Bone Diagrams: 01/05/20 05:30 09/01/19 05:30 - Additional Planning My Orders: My Active Orders 09/02/19 08:52 Chest 1 View X-Ray [XR] Routine 09/02/19 08:53 Acapella [Acapella (Flutter Valve Device] [RC] TID Subjective - Subjective Patient Reports: Cough, Shortness of Breath Nursing Reports: Cough, Shortness of Breath Objective Vital Signs: Vital Signs - 24 hr 09/01/19 09/01/19 09/01/19 13:00 13:15 16:57 Temperature 37.0 C 36.7 C Heart Rate 73 Heart Rate [ 65 68 Brachial] Respiratory 18 18 19 Rate Blood Pressure [Left Brachial artery] Blood Pressure 124/69 132/72 H [Right Brachial artery] O2 Saturation 92 97 09/01/19 09/01/19 09/01/19 17:00 19:02 20:55 Temperature 36.8 C Heart Rate 64 84 Heart Rate [ 74 Brachial] Respiratory 20 18 22 Rate Blood Pressure [Left Brachial artery] Blood Pressure 110/74 [Right Brachial artery] O2 Saturation 95 09/01/19 09/02/19 09/02/19 23:30 04:55 07:53 Temperature 36.7 C 36.6 C Heart Rate 60 Heart Rate [ 61 66 Brachial] Respiratory 20 16 20 Rate Blood Pressure 124/81 H [Left Brachial artery] Blood Pressure 124/84 H [Right Brachial artery] O2 Saturation 95 91 L 09/02/19 08:01 Temperature 36.9 C Heart Rate Heart Rate [ 62 Brachial] Respiratory 16 Rate Blood Pressure [Left Brachial artery] Blood Pressure 130/69 [Right Brachial artery] O2 Saturation 97 Oxygen O2 Source [With Activity] Nasal cannula O2 Source Nasal cannula Oxygen Flow Rate 3 I&O (Last 24 Hrs): Intake and Output Totals x24h 08/31/19 09/01/19 09/02/19 23:59 23:59 23:59 Intake Total 1070 1240 100 Balance 1070 1240 100 General: Alert, Oriented x3 HEENT: PERRLA Neck: No JVD Neuro: Alert, Oriented Times 3 Cardiovascular: Regular rate, Normal S1, Normal S2, No murmurs Respiratory: Chest non-tender, Wheezes, Rhonchi, Other (cough spasms) Abdomen: Normal bowel sounds, Soft Extremities: No clubbing, No cyanosis, No edema - Results Results: Laboratory Results WBC 10.3 x10^3/uL (4.8-10.8) 09/01/19 05:30 RBC 4.28 10^6/uL (4.70-6.10) L 09/01/19 05:30 Hgb 13.2 g/dL (14.0-18.0) L 09/01/19 05:30 Hct 41.8 % (42.0-52.0) L 09/01/19 05:30 MCV 97.7 fL (80.0-94.0) H 09/01/19 05:30 MCH 30.8 pg (27.0-31.0) 09/01/19 05:30 MCHC 31.6 g/dL (32.0-36.0) L 09/01/19 05:30 RDW 13.0 % (12.0-15.0) 09/01/19 05:30 Plt Count 246 10^3/uL (130-450) 09/01/19 05:30 MPV 9.3 fL (7.4-11.4) 09/01/19 05:30 Neut # (Auto) 8.7 10^3/uL (1.5-6.6) H 09/01/19 05:30 Lymph # (Auto) 0.8 10^3/uL (1.5-3.5) L 09/01/19 05:30 Banner # (Auto) 0.5 10^3/uL (0.0-1.0) 09/01/19 05:30 Eos # (Auto) 0.0 10^3/uL (0.0-0.7) 09/01/19 05:30 Baso # (Auto) 0.0 10^3/uL (0.0-0.1) 09/01/19 05:30 Absolute Nucleated RBC 0.00 x10^3/uL 09/01/19 05:30 Total Counted 100 08/29/19 13:22 Band Neuts % (Manual) 19 % (0-10) H 08/29/19 13:22 Abnorm Lymph % (Manual) 0 % 08/29/19 13:22 Nucleated RBC % 0.0 /100WBC 09/01/19 05:30 Neutrophils # (Manual) 5.6 10^3/uL (1.5-6.6) 08/29/19 13:22 Lymphocytes # (Manual) 0.5 10^3/uL (1.5-3.5) L 08/29/19 13:22 Monocytes # (Manual) 1.4 10^3/uL (0.0-1.0) H 08/29/19 13:22 Eosinophils # (Manual) 0.0 10^3/uL (0-0.7) 08/29/19 13:22 Basophils # (Manual) 0.0 10^3/uL (0-0.1) 08/29/19 13:22 Differential Comment MANUAL DIFFERENTIAL 08/29/19 13:22 Manual Slide Review Indicated 08/29/19 13:22 Platelet Estimate NORMAL (130-450,000) (NORMAL) 08/29/19 13:22 Platelet Morphology NORMAL APPEARANCE (NORMAL) 08/29/19 13:22 RBC Morph Micro Appear NORMAL APPEARANCE (NORMAL) 08/29/19 13:22 PT 13.6 secs (9.9-12.6) H 08/31/19 05:45 INR 1.2 (0.8-1.2) 08/31/19 05:45 Bld Gas Analysis Time 0613 08/30/19 06:00 Sample Site RIGHT RADIAL 08/30/19 06:00 ABG pH 7.38 (7.35-7.45) 08/30/19 06:00 ABG pCO2 54 mmHg (34-45) H 08/30/19 06:00 ABG pO2 117 mmHg (80-100) H 08/30/19 06:00 ABG HCO3 31.4 mmol/L (22.0-26.0) H 08/30/19 06:00 ABG Total CO2 33.1 MMOL/L (21.0-29.0) H 08/30/19 06:00 ABG O2 Saturation 98 % (94-98) 08/30/19 06:00 ABG Base Excess 4.9 mmol/L (-2.0-3.0) H 08/30/19 06:00 Sathish Test POSITIVE 08/30/19 06:00 O2 Delivery Device BiPAP 08/30/19 06:00 Vent Mode SYNCHRONOUS/TIMES 08/29/19 18:22 FiO2 40.00 08/30/19 06:00 EPAP 7 cmH2O 08/30/19 06:00 IPAP 14 cmH2O 08/30/19 06:00 Sodium 142 mmol/L (135-145) 09/01/19 05:30 Potassium 4.8 mmol/L (3.5-5.0) 09/01/19 05:30 Chloride 101 mmol/L (101-111) 09/01/19 05:30 Carbon Dioxide 34 mmol/L (21-32) H 09/01/19 05:30 Anion Gap 7.0 (6-13) 09/01/19 05:30 BUN 26 mg/dL (6-20) H 09/01/19 05:30 Creatinine 0.7 mg/dL (0.6-1.2) 09/01/19 05:30 Estimated GFR (MDRD) 110 (>89) 09/01/19 05:30 Glucose 146 mg/dL (70-100) H 09/01/19 05:30 POC Whole Bld Glucose 116 mg/dL (70 - 100) H 09/02/19 07:49 Glycated Hemoglobin 6.1 % (4.6-6.2) 08/30/19 05:53 Estim Average Glucose 128 (70-100) H 08/30/19 05:53 Calcium 9.3 mg/dL (8.5-10.3) 09/01/19 05:30 Phosphorus 3.9 mg/dL (2.5-4.6) 09/01/19 05:30 Magnesium 2.2 mg/dL (1.7-2.8) 09/01/19 05:30 Total Bilirubin 0.5 mg/dL (0.2-1.0) 09/01/19 05:30 Direct Bilirubin 0.1 mg/dL (0.1-0.5) 09/01/19 05:30 AST 40 IU/L (10-42) 09/01/19 05:30 ALT 97 IU/L (10-60) H 09/01/19 05:30 Alkaline Phosphatase 90 IU/L (42-121) 09/01/19 05:30 Troponin I High Sens 72.7 ng/L (2.3-19.7) H* 08/29/19 17:10 B-Natriuretic Peptide 384 pg/mL (5-100) H 08/29/19 13:22 Total Protein 5.9 g/dL (6.7-8.2) L 09/01/19 05:30 Albumin 2.8 g/dL (3.2-5.5) L 09/01/19 05:30 Globulin 3.1 g/dL (2.1-4.2) 09/01/19 05:30 Albumin/Globulin Ratio 1.1 (1.0-2.2) 08/29/19 13:22 Lipase 21 U/L (22-51) L 08/29/19 13:22 Nasal Screen MRSA (PCR) NEGATIVE (NEGATIVE) 08/29/19 20:33 ABX Reporting Has patient been on IV antibiotics over the past 48 hours?: Yes Current Medications - Current Medications Current Medications: Active Medications Acetaminophen (Tylenol) 650 mg PO Q4HR PRN PRN Reason: Pain 1 to 4 Last Admin: 08/30/19 11:55 Dose: 650 mg Albuterol () 2.5 mg INH RTQ4H PRN PRN Reason: Wheezing Albuterol/Ipratropium (Duoneb) 3 ml INH RTQ4H [facility] Last Admin: 09/02/19 07:53 Dose: 3 ml Alcohol (Liquor) 50 ml PO 1800 [facility] Last Admin: 09/01/19 17:21 Dose: 50 ml Benzonatate (Tessalon) 100 mg PO TID PRN PRN Reason: Cough Last Admin: 09/01/19 06:44 Dose: 100 mg Chlorhexidine Gluconate (Peridex) 15 ml PO BID [facility] Last Admin: 09/01/19 20:56 Dose: 15 ml Docusate Sodium (Colace 250mg Capsule) 250 - 500 mg PO DAILY [facility] Last Admin: 09/01/19 08:16 Dose: 250 mg Guaifenesin (Robitussin Liquid) 100 mg PO Q6HR PRN PRN Reason: Cough Last Admin: 09/01/19 23:55 Dose: 100 mg Heparin Sodium (Porcine) () 5,000 unit SUBQ BID [facility] Last Admin: 09/01/19 21:08 Dose: 5,000 unit Azithromycin 500 mg/ Sodium (Chloride) 250 mls @ 250 mls/hr IV Q24H [facility] Last Infusion: 09/01/19 15:10 Dose: Infused Ceftriaxone Sodium 2 gm/ (Sodium Chloride) 100 mls @ 200 mls/hr IV Q24H [facility] Last Infusion: 09/01/19 16:15 Dose: Infused Insulin Aspart (Novolog) 1 - 9 unit SUBQ 0800,1200,1700,2100 [facility]; Protocol Last Admin: 09/01/19 21:14 Dose: 1 unit Lactobacillus Rhamnosus (Culturelle) 1 cap PO DAILY [facility] Last Admin: 09/01/19 08:17 Dose: 1 cap Lorazepam (Ativan Inj (Vial)) 2 mg IVP Q30M PRN; Protocol PRN Reason: CIWA >8 Methylprednisolone (Solu-Medrol (40mg Vial)) 40 mg IVP TID [facility] Last Admin: 09/02/19 05:41 Dose: 40 mg Montelukast Sodium (Singulair) 10 mg PO QPM [facility] Last Admin: 09/01/19 20:57 Dose: 10 mg Morphine Sulfate (Morphine (Carpuject)) 1 mg IVP Q4HR PRN PRN Reason: Dyspnea Last Admin: 08/31/19 21:39 Dose: 1 mg Multivitamins/Minerals (Theragran M) 1 tab PO DAILYWM [facility] Last Admin: 09/01/19 08:16 Dose: 1 tab Nicotine (Nicoderm) 1 patch TOP DAILY [facility] Last Admin: 09/01/19 08:17 Dose: 1 patch Polyethylene Glycol (Miralax) 17 gm PO DAILY [facility] Last Admin: 09/01/19 08:24 Dose: Not Given Sodium Chloride (Normal Saline Flush 0.9%) 10 ml IVP 0100,0900,1700 [facility] Last Admin: 09/01/19 23:32 Dose: 10 ml Sodium Chloride (Normal Saline Flush 0.9%) 10 ml IVP PRN PRN PRN Reason: NEEDED PER PROVIDER ORDERS Last Admin: 09/02/19 05:41 Dose: 10 ml Thiamine HCl (Vitamin B-1) 100 mg PO DAILY [facility] Last Admin: 09/01/19 08:17 Dose: 100 mg Budesonide/Formoterol Fumarate [Symbicort 160-4.5 Mcg Inhaler] 2 puffs INH BID 08/29/19 Ipratropium/Albuterol [Combivent Respimat] 1 puffs INH QID 08/29/19 hydrOXYzine HCL [Hydroxyzine HCl] 25 mg PO QID PRN 08/29/19 predniSONE [Deltasone] 20 mg PO DAILYWM 08/29/19
[2019-09-02] MEDS: INSULIN ASPART 300 UNIT/3 ML PEN SUBQ SCH ×4 (09:12→21:30)
[2019-09-02] MEDS: polyethylene glycoL 3350 17 GM PACKET PO SCH (09:45)
[2019-09-02] MEDS: MULTIVITAMIN W/MINERALS TABLET PO SCH (09:50)
[2019-09-02] MEDS: LACTOBACILLUS RHAMNOSUS GG CAPSULE PO SCH (09:50)
[2019-09-02] MEDS: THIAMINE 100 MG TABLET PO SCH (09:50)
[2019-09-02] MEDS: DOCUSATE SODIUM 250 MG CAPSULE PO SCH (09:50)
[2019-09-02] MEDS: NICOTINE 14 MG PATCH TOP SCH (09:50)
[2019-09-02] MEDS: CHLORHEXIDINE GLUCONATE 15 ML UDC PO SCH ×2 (10:00→21:30)
[2019-09-02] MEDS: HEPARIN 5,000 UNIT/ML VIAL SUBQ SCH ×2 (10:00→21:27)
[2019-09-02] MEDS: SODIUM CHLORIDE FLUSH 0.9% 10 ML SYRINGE IVP SCH ×3 (10:01→23:54)
--- NOTE | 2019-09-02 12:45 | XRAY Report ---
Reason: worse cough in pneumonia Procedure Date: 09/02/2019 Accession Number: [id number] / [id number] Procedure: XR - Chest 1 View X-Ray CPT Code: 47782 Final Report FULL RESULT: EXAM: CHEST RADIOGRAPHY EXAM DATE: 09/02/2019 10:20 AM. CLINICAL HISTORY: Worse cough in pneumonia. COMPARISON: CHEST 1 VIEW 08/29/2019 1:04 PM CHEST 2 VIEW 03/27/2019 2:34 PM. TECHNIQUE: 1 view. FINDINGS: Lungs/Pleura: Chronic reticular interstitial pattern in the mid to lower lung navas without definite new infiltrate. No effusion. Hyperlucent lung navas. Mediastinum: Within exam limitations, the cardiomediastinal contour is normal. Pulmonary arteries appear enlarged Other: None. IMPRESSION: Chronic lung changes. COPD. No new findings RADIA
[2019-09-02] MEDS: AZITHROMYCIN INJ 500 MG in SODIUM CHLORIDE 0.9% 250 ML IV SCH (14:30)
[2019-09-02 16:09] LABS: ABG HCO3 35.8 mmol/L (22.0-26.0); ABG OXYGEN SATURATION 90 % (94-98); ABG PCO2 50 mmHg (34-45); ABG PH 7.46 (7.35-7.45); ABG PO2 56 mmHg (80-100)
[2019-09-02 16:10] LABS: ALLEN TEST POSITIVE
[2019-09-02] MEDS: cefTRIAXone 2 GM in SODIUM CHLORIDE 0.9% MINIBAG 100 ML IV SCH (16:25)
[2019-09-02] MEDS: LIQUOR 50 ML BOTTLE PO SCH (17:40)
[2019-09-02] MEDS: MONTELUKAST 10 MG TABLET PO SCH (21:30)
[2019-09-03] MEDS: IPRATROPIUM/ALBUTEROL 3 ML NEB INH SCH ×3 (00:56→10:58)
[2019-09-03] MEDS: methylPREDNISolone SUCCINATE 40 MG/ML VIAL IVP SCH (06:26)
[2019-09-03] MEDS: SODIUM CHLORIDE FLUSH 0.9% 10 ML SYRINGE IVP PRN (06:27)
[2019-09-03] MEDS: INSULIN ASPART 300 UNIT/3 ML PEN SUBQ SCH ×2 (07:47→12:29)
--- NOTE | 2019-09-03 08:05 | Discharge Plan ---
Discharge Plan Problem Reviewed?: Yes Disposition: Home, Self Care Condition: Stable Prescriptions: buPROPion [Wellbutrin Sr] 150 mg PO BID #37 tablet levoFLOXacin [Levaquin] 750 mg PO QDAC #6 tablet LORazepam [Ativan] 0.5 mg PO BID PRN #50 tablet PRN Reason: Anxiety Montelukast [Singulair] 10 mg PO QPM #30 tablet Nebulizer [Aeroneb Go Nebulizer] 1 each MC QID #1 each Nicotine 14 mg Patch [Nicoderm] 1 patch TOP DAILY #30 patch Diet: Regular Activity Restrictions: Activity as Tolerated Shower Restrictions: No Driving Restrictions: Yes (no driving for a few weeks until stronger) Instruction Topics: Lorazepam tablets, Bupropion sustained-release tablets smoking cessation, Care Palliative, Disease Chronic Lung Quit Smoking, Cirrhosis, Withdrawal Smoking [facility] Concerns: You have been a lifelong smoker and drinker, and have been having coughing and dyspnea on exertion for several years. It had gone to a crisis point and you saw your provider this summer. You were finally diagnosed with chronic obstructive lung disease/emphysema from your smoking. Pulmonary function studies show you to have moderate to severe COPD. You presented to the hospital with sudden worsening exacerbation over several days where you could no longer breathe and felt like you were suffocating and dying. We found you to have acute COPD exacerbation and severe bronchitis. You required temporary respiratory support with a machine called BiPAP in the intensive care unit. We also treated you with antibiotics, steroids, 2 types of nebulizers. Plan of Treatment: 1. You no longer needs steroids at home. 2. We are sending you home with a nebulizer machine. You will use the medications DuoNeb on a scheduled dose 4 times a day. If you still continue to have severe coughing and wheezing you may then use albuterol as needed up to 4 times a day as well. I am also sending you home with an Acapella device to help expand the bronchioles in your lungs and bring up phlegm. Use as instructed by respiratory therapy. 3. Continue your long-acting inhaler called Symbicort 4. You have completed antibiotics with azithromycin. You will go home with levaquin for 2 days 5. Please avail yourself of cardiopulmonary rehab. Your primary care provider had already made the referral in April and you declined. I strongly, strongly recommend that you start rehab in the next few weeks. It will improve the quality of your life with regards to strength and endurance. 6. Please stop drinking. You have said that you.you will but at least try. You have cirrhosis of the liver now. 7. Please continue to stop smoking. You have been without cigarettes for 5 days while here. I am sending you home on medications that will help you control your urge to smoke. You will be on Wellbutrin, Ativan, and a nicotine patch. After a month on the current dose of the nicotine patch 14 mg, go to the next lower dose of 7 mg a day for 30 days and then you can stop the nicotine patch. 8. You will be sent home on oxygen for a while. Once you bronchial inflammation slowly gets better, you may be able to come off oxygen. You will need 2 liters of nasal canula at rest and 4 liters when you walk or have physical activity. 9. Please see your primary care provider in the next 1 to 2 weeks. Care Goals: 1. To reduce the amount of coughing you have. Hopefully in the next 2 months, with stopping smoking and using your medications that will improve. 2. To improve your cardiovascular endurance so that you have more energy, and can do more things. 3. Our care goal recommendation is for you to stop drinking and smoking. Because you are not Gino independent individual, you say you will consider it but you do not know if you will. Assessment: Patient and family understand care goals and will follow through. After he is thought about it. Follow-Up Care: [facility] - Pulmonary No Smoking: If you smoke, Please STOP! Call for help. Follow-up with: Iam Copeland MD [Primary Care Provider] -
[2019-09-03 08:22] LABS: ALBUMIN 3.1 g/dL (3.2-5.5); ALBUMIN/GLOBULIN RATIO 1.1 (1.0-2.2); BILIRUBIN,TOTAL 0.6 mg/dL (0.2-1.0); CALCIUM 8.9 mg/dL (8.5-10.3); CREATININE 0.7 mg/dL (0.6-1.2); MAGNESIUM 2.4 mg/dL (1.7-2.8); TOTAL PROTEIN 5.9 g/dL (6.7-8.2)
[2019-09-03 08:32] LABS: BASOPHILS % (AUTO) 0.1 %; LYMPHOCYTES % (AUTO) 6.8 %; MEAN CORPUSCULAR HGB CONC 32.6 g/dL (32.0-36.0); MEAN CORPUSCULAR VOLUME 98.1 fL (80.0-94.0); MONOCYTES # (AUTO) 0.6 10^3/uL (0.0-1.0); MONOCYTES % (AUTO) 4.4 %; NEUTROPHILS # (AUTO) 11.4 10^3/uL (1.5-6.6); PLT - PLATELET COUNT 244 10^3/uL (130-450); RED BLOOD COUNT 4.69 10^6/uL (4.70-6.10); RED CELL DISTRIBUTION WIDTH 12.9 % (12.0-15.0); WHITE BLOOD COUNT 14.4 x10^3/uL (4.8-10.8)
[2019-09-03] MEDS: polyethylene glycoL 3350 17 GM PACKET PO SCH (08:47)
[2019-09-03] MEDS: DOCUSATE SODIUM 250 MG CAPSULE PO SCH (08:47)
[2019-09-03] MEDS: THIAMINE 100 MG TABLET PO SCH (08:49)
[2019-09-03] MEDS: MULTIVITAMIN W/MINERALS TABLET PO SCH (08:49)
[2019-09-03] MEDS: NICOTINE 14 MG PATCH TOP SCH (08:49)
[2019-09-03] MEDS: LACTOBACILLUS RHAMNOSUS GG CAPSULE PO SCH (08:49)
[2019-09-03 09:07] LABS: PLATELET MORPHOLOGY NORMAL APPEARANCE (NORMAL)
[2019-09-03 09:08] LABS: PLATELET ESTIMATE, MANUAL NORMAL (130-450,000) (NORMAL); RBC MORPHOLOGY (MULTIPLE) NORMAL APPEARANCE (NORMAL)
[2019-09-03] MEDS: CHLORHEXIDINE GLUCONATE 15 ML UDC PO SCH (10:00)
[2019-09-03] MEDS: HEPARIN 5,000 UNIT/ML VIAL SUBQ SCH (10:05)
[2019-09-03] MEDS: SODIUM CHLORIDE FLUSH 0.9% 10 ML SYRINGE IVP SCH (10:05)
[2019-09-03 11:17] VITALS: BP 123/77
--- NOTE | 2019-09-03 13:56 | DISCHARGE SUMMARY ---
"Discharge Summary Admit Date: 08/29/19 Discharge Date: 09/03/19 Discharging Provider: Pratima Padron MD Primary Care Provider: Antwan Copeland MD Code Status: Do Not Attempt Resuscitation Condition at Discharge: Fair Discharge Disposition: 01 Home, Self Care - DIAGNOSES Discharge Diagnoses with Status of Each Condition: 1. Acute on chronic hypercapnic respiratory failure 2. COPD exacerbation 3. Demand ischemia with elevated troponins 4. Cirrhosis of the liver 5. Alcohol abuse 6. Tobacco use 7. Cor pulmonale 8. Hyperglycemia due to steroids - HPI History of Present Illness: This is a 73-year-old male with a past medical history significant for COPD and tobacco use who presents today complaining of dyspnea that began three days ago. Most of the history is obtained from his spouse as the patient is on BiPAP and tachypneic. He states he had been doing well up until Monday when they were organizing their storage which had a lot of dust. She states that since that time he has felt short of breath and this has progressed. He has also had a cough and saw his primary care physician who prescribed him an antibiotic as he felt the patient had bronchitis. She states he continues to smoke a pack a day. He has a history of COPD but did not start taking inhalers until just this past March. She states he does not like to see physicians and therefore does not follow up on a regular basis. The patient reports feeling dyspneic at the moment. He denies any chest pain but continues to have a cough. He states that he has felt like he was wheezing over the past few days. The patient was seen his primary care physician's office today and was found to have oxygen saturations in the low 80s on room air and so he was sent emergency department for further evaluation. In the emergency department, he was found to be afebrile with a temperature of 36.5 C. He was tachycardic with a heart rate of 97. Hypotensive blood pressure 102/70. He was tachypneic with respiratory to 22 and was saturating 83% on room air. This improved to 91% with 3 L of oxygen via nasal cannula. His labs reveal a white count of 7.5 but he did have 19% bands. His BUN is elevated at 35 and a troponin of 119. His LFTs were also elevated as well as a BNP of 384. His EKG reveals a sinus rhythm with flattened T waves in V2 to V4. He was given Decadron, ceftriaxone, azithromycin, and duo nebs in the emergency department. He appeared to began to tire out and was becoming more dyspneic and so an ABG was obtained. His pH was 7.3 and PCO2 was 56 with a PO2 of 133. He was then placed on BiPAP and medicine was consulted for admission. I did discuss goals of care with the patient and his spouse. The patient would be agreeable to mechanical ventilation as long as it was temporary but does not want CPR. His states that in the past the patient had told her that he would only want to be on a ventilator for a day or 2 at most. She states that he does have a POLST form which she will bring in tomorrow. - Past Medical History Cardiovascular: reports: None Respiratory: reports: COPD Neuro: reports: None Endocrine/Autoimmune: reports: None - CONSULTS | PROCEDURES Procedures: 1. Echocardiogram showing a left side that is normal. Systolic function is 55 to 60%. Wall thickness normal. However septal wall flattens in systole which is consistent with right ventricular pressure overload. Severe right ventricular enlargement is seen. Right ventricular systolic function is mildly impaired. Insufficient tricuspid regurgitation jet would not allow accurate assessment of RVSP. 2. Chest x-ray August 29 and September 02 showed upper lobe hyperlucency and hyperinflation consistent with emphysema. Moderate reticular densities in the mid lungs. Flattening of the diaphragms. No infiltrates. 3. Abdominal ultrasound, limited shows an enlarged liver of 19.6 cm. Nodular in contour. Mildly heterogeneous echogenicity. Focal rounded echogenic lesion seen in the region of the falciform ligament measuring 2.8 x 1.4 cm with inte rnal vascularity. Diagnostic consideration include atypical hemangioma or adenoma. Recommend MRI of the liver with and without contrast. Portal vein is hepatopetal. Gallbladder normal. Common bile duct 3 mm. 4. Blood cultures without growth after 2 days 5. ABG on 2-1/2 L of nasal cannula show a pH of 7.46, PCO2 50, PO2 56, bicarb 35.8, base excess 12. - HOSPITAL COURSE Hospital Course: Our initial history was incomplete with regards to social history. The patient was initially placed in the ICU on BiPAP and his blood gases improved. BiPAP was stopped in the early childhood special educator of August 30. He was tolerating nasal cannula from that point on throughout his admission. After he is more awake and alert, he shared with us that he drinks scotch on a regular basis. He also smokes on a regular basis. He stoutly maintains that he has no intention of stopping either 1. We reviewed his past medical history and he has been seen infrequently in his primary care provider office because he does not really want to follow-up. He does not like doctors and he does not like their advice. He had already been seen for COPD in February. Pulmonary function studies March 17 showed [facility] dil[facility] volumes: FVC 2.13 L (50% predicted), FEV1 0.92 L (29% of predicted), FEV1/FVC 43%. (58% of predicted). After bronchodilators his FVC was 2.35, FEV1 0.91, FVC/FVC was 39%. O2 sat was 91% on room air. We had long conversations about what moderate to severe emphysema means. Prognosis. And that some of his symptoms could be improved if he were to stop smoking, and to cardiopulmonary rehab. He had already been referred to pulmonary rehab and vaguely remembers that referral. But he never followed through. While he is willing to consider these options he is not sure if he will do so in the outpatient setting. In an effort to help him stop smoking he is willing to start Wellbutrin, Ativan, and a nicotine patch. And to be on Singulair. Those to be continued in the outpatient setting. He says that he really does not ever want to have to go th rough this again. The feeling of suffocating at home, before he came in, was truly, truly frightening. Respiratory therapy help me set up durable medical equipment for home nebulizers. He will be on DuoNeb 4 times a day. Continue his Symbicort. I am also recommending Trilogy. He requires a noninvasive ventilator due to the severity of COPD. Ventilation is required to decrease his work of breathing and improve his pulmonary status. Interruption of respiratory support could lead to serious harm, such as decline in health status, worsening condition, increased risk of CO2 retention, untimely readmission or . BiPAP was considered and deemed insufficient for severity of his disease and for home use. He is also a candidate for home oxygen. He was hypoxic at rest with a room air sat of 88%. At rest with 2 L nasal cannula his sats improved to 91%. With exertion on 2 L, his saturations were 86%. With 3 L he was 87%. And finally on 4 L/min his O2 sats were 91%. I am ordering home O2 at 2 L/min at rest via nasal cannula, and 4 L/min with exertion. This is to treat his COPD. Elevated liver enzymes were studied and followed. They reverted to normal. With this history of scotch we feel that he probably has cirrhosis on the basis of the ultrasound report. He has been asked to stop drinking. Again, he doubts he will. He had initially improved on MedSurg with nebulizers, empiric antibiotics, steroids, but then deteriorated with regards to coughing. Repeat blood gases were done. Repeat chest x-ray was done. There was no new infiltrate. And blood gases appeared stable. Sputum cultures were not done. Blood cultures were negative. Elevated troponins were noted on admission. He was 119.1. EKG was without acute changes for this. Repeat troponin was 72.7 and he was felt to have demand enzyme leak. There was mild hyperglycemia during his stay while on steroids. He did require insulin use. The highest glucose was 176. On the day of discharge, he was 145 and steroids will not be continued. He may need outpatient follow-up with an A1c. Cor pulmonale was noted on his echo. However, he did not require significant diuresis. Advanced care planning conversation was held with the patient and 1 of his daughters. Please refer to that note in the medical record. Goals of care were discussed. CODE STATUS is DO NOT RESUSCITATE. At discharge he is a 5 foot 10 inch male who weighs 79 kg. Has an occasional cough that is improved tremendously from the last 48 hours. He was having coughing spasms where his face would turn purple. While he still has a red face, the coughing spasms are less frequent and less severe and he is using his Acapella valve conscientiously. Temperature is 36.7. Pulse is 66-58. Blood pressure 123/77, respirations 18 and he is 98% saturated on 2 L. Shotty neck adenopathy on exam but no JVD or bruits Pulmonary exam has occasional coarse rhonchi. They were much more frequent in the last 2 days. They have improved. They clear with coughing and then returned. No increased respiratory effort. He does have prolonged and exhalation and no wheezing at this time. Getting up will result in increased respiratory effort and increased respiratory rate that slows down immediately after about 45 seconds to a minute. PMI is normally placed and he has a regular rate and rhythm. There is no ankle edema. He is oriented to person, place, time, situation. Is able to get up and ambulate using a walker and a gait belt to the bathroom into his chair. Greater than 30 minutes was spent coordinating discharge. - ALLERGIES Allergies/Adverse Reactions: Allergies Allergy/AdvReac Type Severity Reaction Status Date / Time bee pollen Allergy Unknown Verified 08/29/19 22:04 Penicillins Allergy Unknown Verified 08/29/19 12:36 - MEDICATIONS Home Medications: Ambulatory Orders Medication Instructions Recorded Confirmed Budesonide/Formoterol Fumarate 2 puffs INH BID 08/29/19 08/29/19 [Symbicort 160-4.5 Mcg Inhaler] Ipratropium/Albuterol [Combivent 1 puffs INH QID 08/29/19 08/29/19 Respimat] hydrOXYzine HCL [Hydroxyzine HCl] 25 mg PO QID PRN 08/29/19 08/29/19 Albuterol 2.5 mg INH RTQ4H PRN neb 09/03/19 Ipratropium/Albuterol [Duoneb] 3 ml INH QID neb 09/03/19 LORazepam [Ativan] 0.5 mg PO BID PRN #50 tablet 09/03/19 Montelukast [Singulair] 10 mg PO QPM #30 tablet 09/03/19 Nebulizer [Aeroneb Go Nebulizer] 1 each MC QID #1 each 09/03/19 Nicotine 14 mg Patch [Nicoderm] 1 patch TOP DAILY #30 patch 09/03/19 Thiamine [Vitamin B-1] 100 mg PO DAILY tablet 09/03/19 buPROPion [Wellbutrin Sr] 150 mg PO BID #37 tablet 09/03/19 levoFLOXacin [Levaquin] 750 mg PO QDAC #6 tablet 09/03/19 - LABS Result Diagrams: 09/03/19 08:00 09/03/19 08:00"
== END 2019-09-03 13:48 | disposition home or self-care (01) | DRG 189 ==
LOC: ED 12:18 → ICU 17:38 → MS2 08-30 15:00
PROVIDERS: ADMIT Internal Medicine; ATTEND Specialist
DX: J96.22 Acute and chronic respiratory failure with hypercapnia (principal); I24.8 Other forms of acute ischemic heart disease; R00.9 Unspecified abnormalities of heart beat; J43.9 Emphysema, unspecified; J96.21 Acute and chronic respiratory failure with hypoxia; J20.9 Acute bronchitis, unspecified; R73.9 Hyperglycemia, unspecified; T38.0X5A Adverse effect of glucocorticoids and synthetic analogues, initial encounter; Y92.230 Patient room in hospital as the place of occurrence of the external cause; I27.81 Cor pulmonale (chronic); I27.23 Pulmonary hypertension due to lung diseases and hypoxia; K70.30 Alcoholic cirrhosis of liver without ascites; F10.10 Alcohol abuse, uncomplicated; F41.9 Anxiety disorder, unspecified; F32.9 Major depressive disorder, single episode, unspecified; Z66 Do not resuscitate; Z91.19 Patient's noncompliance with other medical treatment and regimen; Z79.51 Long term (current) use of inhaled steroids; Z72.0 Tobacco use; Z79.899 Other long term (current) drug therapy; Z77.110 Contact with and (suspected) exposure to air pollution
CPT/HCPCS: 36415; 36600; 71045; 76705; 80048; 80053; 80076; 82803; 83036; 83690; 83735; 83880; 84100; 84484; 85025; 85610; 87040; 87150; 93005; 93306; 94640; 94660; 94761; 96365; 96367; 96375; 97116; 97162; 97530; 99284; 99285; A9270; J1815; J2060

== ENCOUNTER 2020-05-06 15:21 | Outpatient (CLI) | payer MEDICARE | END 2020-05-06 15:22 | disposition home or self-care (01) | LOC: COV 15:21 | PROVIDERS: ATTEND Family Medicine | DX: R05 Cough (principal); R06.02 Shortness of breath; M79.10 Myalgia, unspecified site; R53.83 Other fatigue; J34.89 Other specified disorders of nose and nasal sinuses; Z20.828 Contact with and (suspected) exposure to other viral communicable diseases ==

== ENCOUNTER 2020-06-02 13:30 | Outpatient (CLI) | payer MEDICARE ==
[2020-06-02 20:31] LABS: CREATININE 0.9 mg/dL (0.6-1.2)
== END 2020-06-02 13:31 | disposition home or self-care (01) ==
LOC: LAB.S 13:30
PROVIDERS: ATTEND Internal Medicine
DX: I27.81 Cor pulmonale (chronic) (principal)
CPT/HCPCS: 36415; 80048

== ENCOUNTER 2021-08-07 11:11 | Outpatient (CLI) | payer MEDICARE ==
[2021-08-07 15:08] LABS: BASOPHILS # (AUTO) 0.2 10^3/uL (0.0-0.1); BASOPHILS % (AUTO) 2.2 %; EOSINOPHILS # (AUTO) 0.3 10^3/uL (0.0-0.7); EOSINOPHILS % (AUTO) 4.2 %; HCT - HEMATOCRIT 45.1 % (42.0-52.0); LYMPHOCYTES # (AUTO) 1.7 10^3/uL (1.5-3.5); LYMPHOCYTES % (AUTO) 23.1 %; MEAN CORPUSCULAR HEMOGLOBIN 32.1 pg (27.0-31.0); MEAN CORPUSCULAR HGB CONC 33.3 g/dL (32.0-36.0); MEAN CORPUSCULAR VOLUME 96.6 fL (80.0-94.0); MEAN PLATELET VOLUME 10.4 fL (7.4-11.4); MONOCYTES # (AUTO) 0.7 10^3/uL (0.0-1.0); MONOCYTES % (AUTO) 8.8 %; NEUTROPHILS # (AUTO) 4.5 10^3/uL (1.5-6.6); NEUTROPHILS % (AUTO) 60.9 %; PLT - PLATELET COUNT 200 10^3/uL (130-450); RED BLOOD COUNT 4.67 10^6/uL (4.70-6.10); RED CELL DISTRIBUTION WIDTH 12.6 % (12.0-15.0); WHITE BLOOD COUNT 7.4 x10^3/uL (4.8-10.8)
[2021-08-07 15:38] LABS: ALBUMIN 4.1 g/dL (3.2-5.5); ALBUMIN/GLOBULIN RATIO 1.3 (1.0-2.2); ALKALINE PHOSPHATASE 60 IU/L (42-121); ALT ALANINE AMINOTRANSFERASE 28 IU/L (10-60); AST ASPARTATE AMINOTRANSFERASE 30 IU/L (10-42); BILIRUBIN,TOTAL 1.2 mg/dL (0.2-1.0); BUN - BLOOD UREA NITROGEN 13 mg/dL (6-20); CALCIUM 9.1 mg/dL (8.5-10.3); CARBON DIOXIDE - CO2 28 mmol/L (21-32); CHLORIDE 101 mmol/L (101-111); CHOL/HDL RATIO 2.6 (<5.0); CHOLESTEROL 230 mg/dL; CREATININE 0.9 mg/dL (0.6-1.2); GFR - MDRD 82 (>89); GLUCOSE 100 mg/dL (70-100); HDL CHOLESTEROL 90 mg/dL; LDL CHOLESTEROL,CALCULATED 128 mg/dL; LDL/HDL RATIO 1.4 (<3.6); POTASSIUM 3.9 mmol/L (3.5-5.0); SODIUM 138 mmol/L (135-145); TOTAL PROTEIN 7.2 g/dL (6.7-8.2); TRIGLYCERIDES 61 mg/dL; VLDL CHOLESTEROL 12 mg/dL
== END 2021-08-07 11:12 | disposition home or self-care (01) ==
LOC: LAB.S 11:11
PROVIDERS: ATTEND Internal Medicine
DX: Z79.899 Other long term (current) drug therapy (principal); Z13.220 Encounter for screening for lipoid disorders; Z12.5 Encounter for screening for malignant neoplasm of prostate
CPT/HCPCS: 36415; 80053; 80061; 85025; G0103; 83721; 84153

== ENCOUNTER 2021-10-18 08:00 | Outpatient (CLI) | payer MEDICARE ==
--- NOTE | 2021-10-18 21:32 | XRAY Report ---
PROCEDURE: Chest 2 View X-Ray INDICATIONS: DYSPNEA TECHNIQUE: 2 view(s) of the chest. COMPARISON: 09/02/2019. FINDINGS: Surgical changes and devices: None. Lungs and pleura: No pleural effusions or pneumothorax. Lungs are clear. Emphysematous change. Mil d bibasilar pulmonary fibrosis. Mediastinum: Mediastinal contours are normal. Heart size is normal. Bones and chest wall: No suspicious bony abnormalities. Soft tissues appear unremarkable. IMPRESSION: COPD, mild bibasilar pulmonary fibrosis. No significant change. No evidence acute pulmon alejandrina process. Reviewed by: Kenn Hemphill MD on 10/18/2021 9:31 PM PST Approved by: Kenn Hemphill MD on 10/18/2021 9:31 PM PST Station ID: [id number]
== END 2021-10-18 23:59 | disposition home or self-care (01) ==
LOC: DI.S 08:00
PROVIDERS: ATTEND Registered Nurse
DX: R06.00 Dyspnea, unspecified (principal); R05.9 Cough, unspecified; R09.02 Hypoxemia; R41.82 Altered mental status, unspecified; J44.9 Chronic obstructive pulmonary disease, unspecified; J84.10 Pulmonary fibrosis, unspecified

== ENCOUNTER 2021-10-19 08:00 | Outpatient (CLI) | payer MEDICARE ==
[2021-10-21 11:46] LABS: CLARITY,URINE CLEAR (CLEAR); LEUKOCYTE ESTERASE, URINE NEGATIVE (NEGATIVE); NITRITE,URINE NEGATIVE (NEGATIVE)
[2021-10-21 11:47] LABS: AMORPHOUS SEDIMENT,UR Marked /LPF; BACTERIA,URINE None Seen /HPF (None Seen); BILIRUBIN,URINE NEGATIVE (NEGATIVE); GLUCOSE, URINE (UA) 250 mg/dL (NEGATIVE); KETONES,URINE (UA) TRACE mg/dL (NEGATIVE); OCCULT BLOOD,URINE NEGATIVE (NEGATIVE); PH,URINE 5.5 PH (5.0-7.5); PROTEIN,URINE NEGATIVE (NEGATIVE); RBC,URINE 0-5 /HPF (0-5); SQUAMOUS EPITHELIAL CELL,UR NONE SEEN (<= Few); UROBILINOGEN,URINE 0.2 (NORMAL) E.U./dL (NORMAL); WBC,URINE 0-3 /HPF (0-3)
== END 2021-10-19 23:59 | disposition home or self-care (01) ==
LOC: LAB.S 08:00
PROVIDERS: ATTEND Registered Nurse
DX: R41.82 Altered mental status, unspecified (principal)
CPT/HCPCS: 81001; 87086

== ENCOUNTER 2022-06-09 12:06 | Outpatient (CLI) | payer MEDICARE ==
[2022-06-09 14:52] LABS: HCT - HEMATOCRIT 42.8 % (42.0-52.0); HGB - HEMOGLOBIN 13.4 g/dL (14.0-18.0); MEAN CORPUSCULAR HEMOGLOBIN 30.2 pg (27.0-31.0); MEAN CORPUSCULAR HGB CONC 31.3 g/dL (32.0-36.0); MEAN CORPUSCULAR VOLUME 96.6 fL (80.0-94.0); MEAN PLATELET VOLUME 10.4 fL (7.4-11.4); RED BLOOD COUNT 4.43 10^6/uL (4.70-6.10); RED CELL DISTRIBUTION WIDTH 13.9 % (12.0-15.0); WHITE BLOOD COUNT 8.5 x10^3/uL (4.8-10.8)
[2022-06-09 15:23] LABS: INR 1.1 (0.8-1.2); PT - PROTHROMBIN TIME 12.7 secs (9.9-12.6)
[2022-06-09 15:25] LABS: ALBUMIN 3.9 g/dL (3.2-5.5); ALBUMIN/GLOBULIN RATIO 1.2 (1.0-2.2); BILIRUBIN,TOTAL 0.7 mg/dL (0.2-1.0); CALCIUM 9.6 mg/dL (8.5-10.3); CREATININE 0.7 mg/dL (0.6-1.2); TOTAL PROTEIN 7.1 g/dL (6.7-8.2)
== END 2022-06-09 12:07 | disposition home or self-care (01) ==
LOC: LAB.S 12:06
PROVIDERS: ATTEND Emergency Medicine
DX: I50.9 Heart failure, unspecified (principal)
CPT/HCPCS: 36415; 80053; 83880; 85027; 85610

== ENCOUNTER 2022-06-27 08:14 | Outpatient (CLI) | payer MEDICARE ==
[2022-06-27 14:38] LABS: BASOPHILS # (AUTO) 0.1 10^3/uL (0.0-0.1); BASOPHILS % (AUTO) 1.2 %; EOSINOPHILS # (AUTO) 0.4 10^3/uL (0.0-0.7); HCT - HEMATOCRIT 46.2 % (42.0-52.0); LYMPHOCYTES # (AUTO) 1.8 10^3/uL (1.5-3.5); LYMPHOCYTES % (AUTO) 20.5 %; MEAN CORPUSCULAR HEMOGLOBIN 29.7 pg (27.0-31.0); MEAN CORPUSCULAR HGB CONC 30.3 g/dL (32.0-36.0); MEAN CORPUSCULAR VOLUME 98.1 fL (80.0-94.0); MEAN PLATELET VOLUME 10.7 fL (7.4-11.4); MONOCYTES # (AUTO) 0.8 10^3/uL (0.0-1.0); MONOCYTES % (AUTO) 8.7 %; NEUTROPHILS # (AUTO) 5.9 10^3/uL (1.5-6.6); NEUTROPHILS % (AUTO) 65.2 %; PLT - PLATELET COUNT 204 10^3/uL (130-450); RED BLOOD COUNT 4.71 10^6/uL (4.70-6.10); RED CELL DISTRIBUTION WIDTH 14.4 % (12.0-15.0)
[2022-06-27 15:04] LABS: ALBUMIN 3.8 g/dL (3.2-5.5); ALBUMIN/GLOBULIN RATIO 1.4 (1.0-2.2); BILIRUBIN,TOTAL 0.7 mg/dL (0.2-1.0); CALCIUM 9.4 mg/dL (8.5-10.3); CREATININE 0.9 mg/dL (0.6-1.2); POTASSIUM 3.5 mmol/L (3.5-5.0); TOTAL PROTEIN 6.6 g/dL (6.7-8.2)
[2022-06-27 15:16] LABS: THYROID STIMULATING HORMONE 1.19 uIU/mL (0.34-5.60)
== END 2022-06-27 08:15 | disposition home or self-care (01) ==
LOC: LAB.S 08:14
PROVIDERS: ATTEND Physician Assistant Medical
DX: I50.9 Heart failure, unspecified (principal); R06.00 Dyspnea, unspecified
CPT/HCPCS: 36415; 80053; 83880; 84443; 85025

== ENCOUNTER 2022-12-27 16:03 | Outpatient (CLI) | payer MEDICARE | END 2022-12-27 16:04 | disposition critical access hospital (66) | LOC: EMS 16:03 | DX: R10.30 Lower abdominal pain, unspecified (principal); R06.02 Shortness of breath; R46.4 Slowness and poor responsiveness; I48.91 Unspecified atrial fibrillation; R07.9 Chest pain, unspecified; Z99.81 Dependence on supplemental oxygen; J44.9 Chronic obstructive pulmonary disease, unspecified | CPT/HCPCS: A0425; A0427 ==

== ENCOUNTER 2022-12-27 16:17 | Inpatient (IN) | payer MEDICARE ==
[2022-12-27] MEDS ORDERED: IPRATROPIUM/ALBUTEROL 3 ML NEB INH STA (16:28)
[2022-12-27] MEDS ORDERED: methylPREDNISolone SUCCINATE 125 MG/2 ML VIAL IVP STA (16:30)
[2022-12-27 16:35] LABS: BASOPHILS # (AUTO) 0.1 10^3/uL (0.0-0.1); BASOPHILS % (AUTO) 0.5 %; EOSINOPHILS % (AUTO) 0.2 %; HCT - HEMATOCRIT 44.7 % (42.0-52.0); HGB - HEMOGLOBIN 14.3 g/dL (14.0-18.0); LYMPHOCYTES # (AUTO) 0.4 10^3/uL (1.5-3.5); LYMPHOCYTES % (AUTO) 3.4 %; MEAN CORPUSCULAR HEMOGLOBIN 30.4 pg (27.0-31.0); MEAN CORPUSCULAR VOLUME 95.1 fL (80.0-94.0); MONOCYTES # (AUTO) 0.6 10^3/uL (0.0-1.0); MONOCYTES % (AUTO) 4.4 %; NEUTROPHILS # (AUTO) 11.9 10^3/uL (1.5-6.6); PLT - PLATELET COUNT 159 10^3/uL (130-450); RED CELL DISTRIBUTION WIDTH 14.6 % (12.0-15.0); WHITE BLOOD COUNT 13.1 x10^3/uL (4.8-10.8)
--- NOTE | 2022-12-27 16:43 | ED Physician Documentation ---
History of Present Illness - Stated complaint Stated Complaint: RAPID HR - Chief complaint Chief Complaint: Cardiac - Additonal information Additional information: 77-year-old male presents to the emergency department for evaluation of dyspnea, A-fib with RVR and right lower quadrant abdominal pain. History is limited from patient given critical status on presentation. Much of the history obtained from EMS and his . Patient does have a history of COPD. He is typically on 4 to 6 L oxygen though not always compliant. Over the last week he has had some progressive dyspnea. His states that this afternoon he developed sudden sharp right lower quadrant abdominal pain which made the shortness of air worse as such EMS was summoned. For EMS they noted that he was in A-fib RVR with a rate of 170. Initially he was administered 20 mg of diltiazem IV with no change in heart rate. Subsequently he was given weightbase diltiazem of 27 mg which slowed his heart rate to the 120s. On presentation the patient is alert though obviously distressed and labored. Saturating 88% on 4 L nasal cannula. He has a thready though palpable pulse in all 4 extremities. Initial EKG does show atrial fibrillation rate of 114. Given the severe dyspnea I have asked RT to immediately place the patient on BiPAP. Review of Systems Unable to obtain: Other (per EMS and ; unable to obtain due to critical status of patient) PD PAST MEDICAL HISTORY - Past Medical History Cardiovascular: None Respiratory: COPD Neuro: None Endocrine/Autoimmune: None GI: None : Incontinence Psych: None Musculoskeletal: None Derm: None - Past Surgical History HEENT: Cataracts - Present Medications Home Medications: Ambulatory Orders Medication Instructions Recorded Confirmed hydrOXYzine HCL [Hydroxyzine HCl] 25 mg PO QID PRN 08/29/19 08/29/19 Albuterol 2.5 mg INH RTQ4H PRN neb 09/03/19 Nebulizer [Aeroneb Go Nebulizer] 1 each MC QID #1 each 09/03/19 Thiamine [Vitamin B-1] 100 mg PO DAILY tablet 09/03/19 buPROPion [Wellbutrin Sr] 150 mg PO BID #37 tablet 09/03/19 Albuterol Sulfate [Proair 90 mcg IH Q4HR PRN 12/27/22 12/27/22 Respiclick] Apixaban [Eliquis] 5 mg PO BID 12/27/22 12/27/22 Benzonatate 1 cap PO Q8HR 12/27/22 12/27/22 Budesonide/Formoterol Fumarate 1 puffs INH DAILY 12/27/22 12/27/22 [Symbicort 160-4.5 Mcg Inhaler] Furosemide [Lasix] 20 mg PO DAILY 12/27/22 12/27/22 - Allergies Allergies/Adverse Reactions: Allergies Allergy/AdvReac Type Severity Reaction Status Date / Time bee pollen Allergy Unknown Verified 12/27/22 16:35 Penicillins Allergy Unknown Verified 12/27/22 16:35 - Social History Does the pt smoke?: Yes Smoking Status: Current every day smoker Does the pt drink ETOH?: Yes Does the pt have substance abuse?: No - Immunizations Immunizations are current?: Yes PD ED PE EXPANDED - General General: Alert, In distress, Other (anxious, labored) - Cardiac Cardiac: Irregularly irregular (Atrial fibrillation on the monitor. Irregular regular. Rate of 115-125 variable), Cap refill < 2 sec - Respiratory Respiratory: Distress, Labored, Accessory mm use, Other (Poor air entry globally.) - Abdomen Abdomen: Normal Bowel sounds, Tender to palpation (RLQ) - Derm Derm: Normal color, Warm and dry, Other (Hemosiderin staining bilateral lower extremities. 2+ pitting edema bilaterally.) - Neuro Neuro: Alert and Oriented X 3, CNII-XII intact - GCS Eye Opening: Spontaneous Motor: Obeys Commands Verbal: Oriented Total: 15 Results - Vitals Vitals: Vital Signs - 24 hr 12/27/22 12/27/22 12/27/22 16:28 16:30 17:07 Temperature 37.3 C Heart Rate 118 H 115 H 115 H Respiratory 25 H 20 22 Rate Blood Pressure 110/87 H 113/77 O2 Saturation 90 L 88 L If not protocol 4 : Oxygen Flow, liters/minute 12/27/22 12/27/22 12/27/22 17:23 18:00 18:37 Temperature Heart Rate 121 H 118 H 117 H Respiratory 24 27 H 24 Rate Blood Pressure 104/84 H 107/81 H 122/83 H O2 Saturation 92 95 94 If not protocol : Oxygen Flow, liters/minute Oxygen O2 Source [] Nasal cannula O2 Source BIPAP - EKG (time done) 1622 EKG releavant findings:: EKG personally interpreted by author of this note. Relevant findings are: Rate: Rate (enter#) (1622), Tachy Rhythm: Atrial fibrillation [place]: Posterior hemiblock QRS: Poor R wave progression Ischemia: ST elevation c/w repol Compare to prior EKG: Changed from prior EKG Computer interpretation: Agree with computer 1818 EKG releavant findings:: EKG personally interpreted by author of this note. Relevant findings are: Rate: Rate (enter#) (137) Rhythm: Atrial fibrillation [place]: Posterior hemiblock Intervals: No: Prolonged QT QRS: Poor R wave progression, Low voltage Ischemia: Non specific changes Compare to prior EKG: Unchanged from prior EKG Computer interpretation: Agree with computer - Labs Labs: Laboratory Tests 12/27/22 12/27/22 12/27/22 16:28 16:28 16:28 WBC 13.1 H RBC 4.70 Hgb 14.3 Hct 44.7 MCV 95.1 H MCH 30.4 MCHC 32.0 RDW 14.6 Plt Count 159 MPV 10.0 Neut # (Auto) 11.9 H Lymph # (Auto) 0.4 L [place] # (Auto) 0.6 Eos # (Auto) 0.0 Baso # (Auto) 0.1 Absolute Nucleated RBC 0.00 Nucleated RBC % 0.0 PT 13.5 H INR 1.2 Bld Gas Analysis Time Sample Site ABG pH ABG pCO2 ABG pO2 ABG HCO3 ABG Total CO2 ABG O2 Saturation ABG Base Excess Sathish Test O2 Delivery Device FiO2 EPAP IPAP Sodium 141 Potassium 4.5 Chloride 108 Carbon Dioxide 24 Anion Gap 9.0 BUN 29 H Creatinine 0.8 Estimated GFR (MDRD) 93 Glucose 127 H Lactic Acid Calcium 9.7 Total Bilirubin 1.5 H AST 35 ALT 38 Alkaline Phosphatase 87 Troponin I High Sens B-Natriuretic Peptide Total Protein 7.2 Albumin 4.1 Globulin 3.1 Albumin/Globulin Ratio 1.3 Lipase 29 Nasal Adenovirus (PCR) Nasal B. parapertussis DNA (PCR) Nasal Coronavir 229E PCR Nasal Coronavir HKU1 PCR Nasal Coronavir NL63 PCR Nasal Coronavir OC43 PCR Nasal Enterovir/Rhinovir PCR Nasal Influenza B PCR Nasal Influenza A PCR Nasal Parainfluen 1 PCR Nasal Parainfluen 2 PCR Nasal Parainfluen 3 PCR Nasal Parainfluen 4 PCR Nasal RSV (PCR) Nasal B.pertussis DNA PCR Nasal C.pneumoniae (PCR) Tarun Human Metapneumo PCR Nasal M.pneumoniae (PCR) Nasal SARS-CoV-2 (PCR) Ethyl Alcohol 12/27/22 12/27/22 12/27/22 16:28 16:28 16:28 WBC RBC Hgb Hct MCV MCH MCHC RDW Plt Count MPV Neut # (Auto) Lymph # (Auto) [place] # (Auto) Eos # (Auto) Baso # (Auto) Absolute Nucleated RBC Nucleated RBC % PT INR Bld Gas Analysis Time Sample Site ABG pH ABG pCO2 ABG pO2 ABG HCO3 ABG Total CO2 ABG O2 Saturation ABG Base Excess Sathish Test O2 Delivery Device FiO2 EPAP IPAP Sodium Potassium Chloride Carbon Dioxide Anion Gap BUN Creatinine Estimated GFR (MDRD) Glucose Lactic Acid 2.0 Calcium Total Bilirubin AST ALT Alkaline Phosphatase Troponin I High Sens 12.4 B-Natriuretic Peptide 206 H Total Protein Albumin Globulin Albumin/Globulin Ratio Lipase Nasal Adenovirus (PCR) Nasal B. parapertussis DNA (PCR) Nasal Coronavir 229E PCR Nasal Coronavir HKU1 PCR Nasal Coronavir NL63 PCR Nasal Coronavir OC43 PCR Nasal Enterovir/Rhinovir PCR Nasal Influenza B PCR Nasal Influenza A PCR Nasal Parainfluen 1 PCR Nasal Parainfluen 2 PCR Nasal Parainfluen 3 PCR Nasal Parainfluen 4 PCR Nasal RSV (PCR) Nasal B.pertussis DNA PCR Nasal C.pneumoniae (PCR) Tarun Human Metapneumo PCR Nasal M.pneumoniae (PCR) Nasal SARS-CoV-2 (PCR) Ethyl Alcohol 12/27/22 12/27/22 12/27/22 16:28 18:00 18:07 WBC RBC Hgb Hct MCV MCH MCHC RDW Plt Count MPV Neut # (Auto) Lymph # (Auto) [place] # (Auto) Eos # (Auto) Baso # (Auto) Absolute Nucleated RBC Nucleated RBC % PT INR Bld Gas Analysis Time 1812 Sample Site RIGHT RADIAL ABG pH 7.46 H ABG pCO2 34 ABG pO2 71 L ABG HCO3 23.4 ABG Total CO2 24.5 ABG O2 Saturation 94 ABG Base Excess 0.1 Sathish Test POSITIVE O2 Delivery Device BiPAP FiO2 35.00 EPAP 5 IPAP 12 Sodium Potassium Chloride Carbon Dioxide Anion Gap BUN Creatinine Estimated GFR (MDRD) Glucose Lactic Acid Calcium Total Bilirubin AST ALT Alkaline Phosphatase Troponin I High Sens B-Natriuretic Peptide Total Protein Albumin Globulin Albumin/Globulin Ratio Lipase Nasal Adenovirus (PCR) NOT DETECTED Nasal B. parapertussis DNA (PCR) NOT DETECTED Nasal Coronavir 229E PCR NOT DETECTED Nasal Coronavir HKU1 PCR NOT DETECTED Nasal Coronavir NL63 PCR NOT DETECTED Nasal Coronavir OC43 PCR NOT DETECTED Nasal Enterovir/Rhinovir PCR NOT DETECTED Nasal Influenza B PCR NOT DETECTED Nasal Influenza A PCR NOT DETECTED Nasal Parainfluen 1 PCR NOT DETECTED Nasal Parainfluen 2 PCR NOT DETECTED Nasal Parainfluen 3 PCR NOT DETECTED Nasal Parainfluen 4 PCR NOT DETECTED Nasal RSV (PCR) NOT DETECTED Nasal B.pertussis DNA PCR NOT DETECTED Nasal C.pneumoniae (PCR) NOT DETECTED Tarun Human Metapneumo PCR NOT DETECTED Nasal M.pneumoniae (PCR) NOT DETECTED Nasal SARS-CoV-2 (PCR) NOT DETECTED Ethyl Alcohol < 5.0 - Rads (name of study) cxr Relevant Findings:: Final report received (Patchy diffuse airspace opacities. Differential includes edema versus severe viral infection) CT chest Relevant Findings:: Final report received (No acute PE. Chronic wall thrombus in the right lower lobe pulmonary artery which is nonocclusive. Central lobar emphysema most severe in apices. Coronary artery disease. Prominent right hilar lymph node) CT abd Relevant Findings:: Final report received (No acute abdominal or pelvic abnormality. Fluid noted around the liver in the pelvis of uncertain etiology. Appendix is not definitively visualized and therefore acute appendix cannot be excluded) PD Medical Decision Making - ED course Complexity details: reviewed old records, reviewed results, re-evaluated patient, considered differential, d/w patient, d/w family ED course: 77-year-old male who has a history of oxygen dependent COPD, A-fib though not on any rate control or anticoagulation, presents to the emergency department for evaluation of severe dyspnea and reported right lower quadrant abdominal pain. This patient who by his 's report is a severe alcoholic has been having ongoing labored respirations for about 1 week. He did drink yesterday evening but due to lower abdominal pain was unable to get out of bed this morning. With increasing dyspnea his summoned EMS. EMS noted that he had A-fib with RVR. They initially gave him 20 of diltiazem without relief. Subsequently he received 27 mg of diltiazem this slowed his heart rate from the 170s to the 120s. On presentation to the ER however he was acutely dyspneic, labored and tachypneic. Facemask saturations were 88%. Given the severe dyspnea patient was immediately placed on BiPAP which began to resolve the dyspnea. He initially had very poor air entry. Given the history of COPD high I administered him 125 mg of Solu-Medrol as well as a DuoNeb. On reevaluation his respiratory pattern had improved. He still had some wheezes but was moving air and better. And ABG after being placed on BiPAP showed good oxygenation and nearly normal CO2. An EKG showed A-fib with variable rate in the 120s. He was normotensive. While here in the ER once he was placed on BiPAP his heart rates initially declined to the low 100s and appeared sinus but after he returned from CT scan patient was very fidgety attempting to get out of bed. In review of the previous chart it does appear the patient has a history of alcoholism. I asked his how much he drinks and she reports "heavy". He has not drank in 24 hours because he is been in bed today. As such we will start [facility] protocol for suspected alcohol withdrawal. Patient will be given 2 mg of Ativan IV now. I did obtain a CBC, electrolytes troponin and BNP. Also obtained a chest x-ray. The chest x-ray is interpreted as having bilateral pulmonary opacities. However volume overload as well as an viral illness could cause a similar appearance. I did obtain a CBC Which showed mild leukocytosis with white count of 13,000. His electrolytes showed no acute worrisome abnormality. High- sensitivity troponin was negative. A BNP was in the 200s. Higher than our most recent which was in the 50s. Given this he was administered 20 mg of Lasix IV. Subsequently patient was sent to the CT scan for evaluation of his lungs and abdomen. The CT scan does show a chronic right pulmonary artery nonocclusive embolus. There are findings of emphysema as well. The CT of the abdomen did not show any acute findings. At this time the patient presents with severe respiratory distress requiring BiPAP in the setting of oxygen dependent COPD. I suspect he has had a COPD exacerbation. He also has A-fib with RVR. He has had rate response to diltiazem. I administered a third dose here in the ER but is likely he will require a diltiazem drip. Given the findings of the chronic thrombus within the right pulmonary artery I did administer him Lovenox 90 mg or 1 mg/kg. Patient will need to be admitted to the hospital for further management of his COPD exacerbation, acute alcohol withdrawal and A-fib with RVR. I have spoken with telehospitalist Dr. Ramsey who agrees to bring the patient in for further evaluation and management to the ICU. - Critical Care Time(min): 1 Time Includes: Direct patient care, Review records Data interpretation: ABG Departure - Departure Disposition: 66 [facility] DC/Xfer Clinical Impression: COPD with acute exacerbation, Atrial fibrillation with RVR Alcohol withdrawal Qualifiers: Complication of substance-induced condition: uncomplicated Qualified Code(s): F10.930 - Alcohol use, unspecified with withdrawal, uncomplicated Chronic pulmonary embolism Qualifiers: Pulmonary embolism type: other Acute cor pulmonale presence: without acute cor pulmonale Qualified Code(s): I27.82 - Chronic pulmonary embolism
[2022-12-27 16:44] LABS: INR 1.2 (0.8-1.2); PT - PROTHROMBIN TIME 13.5 secs (9.9-12.6)
[2022-12-27 16:53] LABS: ALBUMIN 4.1 g/dL (3.2-5.5); ALBUMIN/GLOBULIN RATIO 1.3 (1.0-2.2); BILIRUBIN,TOTAL 1.5 mg/dL (0.2-1.0); CALCIUM 9.7 mg/dL (8.5-10.3); CREATININE 0.8 mg/dL (0.6-1.2); POTASSIUM 4.5 mmol/L (3.5-5.0); TOTAL PROTEIN 7.2 g/dL (6.7-8.2)
--- NOTE | 2022-12-27 17:03 | XRAY Report ---
PROCEDURE: Chest 1 View X-Ray INDICATIONS: Chest Pain TECHNIQUE: One view of the chest was acquired. COMPARISON: None. FINDINGS: Surgical changes and devices: None. Lungs and pleura: Patchy, diffuse air space opacities. Mediastinum: Mediastinal contours appear normal. Heart size is enlarged. Bones and chest wall: No suspicious bony lesions. Overlying soft tissues appear unremarkable. IMPRESSION: Patchy, diffuse airspace opacities. Differential includes edema or severe viral infection. Reviewed by: Tony Hendrix on 12/27/2022 5:02 PM PDT Approved by: Tony Hendrix on 12/27/2022 5:02 PM PDT Station ID: [id number]
[2022-12-27] MEDS ORDERED: iohexoL-300 100 ML VIAL ONE (17:16)
[2022-12-27] MEDS ORDERED: FUROSEMIDE 20 MG/2 ML VIAL IVP STA (17:26)
[2022-12-27 18:13] LABS: ABG BASE EXCESS 0.1 mmol/L (-2.0-3.0); ABG HCO3 23.4 mmol/L (22.0-26.0); ABG OXYGEN SATURATION 94 % (94-98); ABG PCO2 34 mmHg (34-45); ABG PH 7.46 (7.35-7.45); ABG PO2 71 mmHg (80-100); ABG TCO2 24.5 MMOL/L (21.0-29.0); ALLEN TEST POSITIVE
[2022-12-27] MEDS ORDERED: LORazepam 2 MG/ML VIAL IVP STA (18:18)
[2022-12-27] MEDS ORDERED: diltiaZEM INJ 5 MG/ML VIAL IVP STA (18:37)
--- NOTE | 2022-12-27 18:41 | CT Report ---
PROCEDURE: ANGIO CHEST W/WO INDICATIONS: Severe dyspnea CONTRAST: 100mL Omni 300 TECHNIQUE: After the administration of intravenous contrast, 2 mm axial images were acquired from the pulmonary apices to the posterior costophrenic angles during the arterial phase. In addition, 1 mm lung kernel and 5 mm soft tissue kernel reconstructions were performed. 3-dimensional coronal oblique maximum int ensity projection (MIP) reformats, 8 mm axial MIP, and 5 mm coronal and sagittal MPR reformats were t hen performed through the thorax. For radiation dose reduction, the following was used: automated exp osure control, adjustment of mA and/or kV according to patient size. COMPARISON: None FINDINGS: Image quality: Excellent. Large vessels: The right lower lobe pulmonary artery demonstrates nonocclusive filling defect along t he inferior wall consistent with a remote resolved pulmonary embolism which has recanalized with resi dual chronic wall thrombus. No acute pulmonary embolism. Accounting for motion and contrast timing. N o evidence of acute aortic syndrome or aortic aneurysm. Lungs and pleura: The lungs have centrilobular emphysematous changes. No focal consolidation or mass. No pleural effusions. No pneumothorax. No suspicious pulmonary nodules which require follow up. Mediastinum: Heart size is enlarged. No pericardial effusions. No mediastinal adenopathy by size crit eria. The coronary arteries have atherosclerotic calcifications. Right hilar lymph nodes are promine nt. Chest wall and lower neck: Thyroid is unremarkable. No axillary or supraclavicular adenopathy by size . Bones: No aggressive osseous abnormality. Upper Abdomen: Unremarkable. IMPRESSION: 1. No acute pulmonary embolism. Chronic wall thrombus in the right lower lobe pulmonary artery which is nonocclusive. 2. Centrilobular emphysema, most severe in the apices. 3. Coronary artery disease. 4. Prominent right hilar lymph nodes Reviewed by: Daryl Christensen on 12/27/2022 6:39 PM PDT Approved by: Daryl Christensen on 12/27/2022 6:39 PM PDT Station ID: [id number]
[2022-12-27 19:03] LABS: B. PARAPERTUSSIS- RESP PCR PAN NOT DETECTED; B. PERTUSSIS- RESP PCR PANEL NOT DETECTED; C. PNEUMONIAE- RESP PCR PANEL NOT DETECTED; CORONAVIRUS 229E-RESP PCR NOT DETECTED; CORONAVIRUS HKU1-RESP PCR NOT DETECTED; CORONAVIRUS NL63-RESP PCR NOT DETECTED; CORONAVIRUS OC43-RESP PCR NOT DETECTED; HUMAN METAPNEUMOVIRUS NOT DETECTED; INFLUENZA A- RESP PCR PANEL NOT DETECTED; INFLUENZA B - RESP PCR PANEL NOT DETECTED; M. PNEUMONIAE- RESP PCR PANEL NOT DETECTED; PARAINFLUENZA VIRUS 1 NOT DETECTED; PARAINFLUENZA VIRUS 2 NOT DETECTED; PARAINFLUENZA VIRUS 3 NOT DETECTED; PARAINFLUENZA VIRUS 4 NOT DETECTED; RHINOVIRUS/ENTEROVIRUS NOT DETECTED; RSV- RESP PCR PANEL NOT DETECTED; SARS-CoV-2 -RESP PCR PANEL NOT DETECTED
--- NOTE | 2022-12-27 19:05 | CT Report ---
PROCEDURE: ABDOMEN/PELVIS W INDICATIONS: RLQ abd pain CONTRAST: 100mL Omni 300 TECHNIQUE: After the administration of contrast, 5 mm thick sections acquired from the diaphragms to the symphys is. 5 mm thick coronal and sagittal reformats were acquired. For radiation dose reduction, the foll owing was used: automated exposure control, adjustment of mA and/or kV according to patient size. COMPARISON: None FINDINGS: Image quality: Excellent. Lung bases and heart: The lung bases have centrilobular emphysematous changes. Coronary arteries have atherosclerotic calcifications. Heart size is enlarged. Liver: No intrahepatic biliary ductal dilatation or mass. A subcentimeter cyst is present within the right lobe. Small amount of fluid around the liver. Gallbladder and biliary tree: No radiopaque stones or wall thickening. No biliary dilation. Spleen: No splenomegaly. Pancreas: No pancreatic ductal dilation. Adrenals: No adrenal nodule. Kidneys and ureters: No hydronephrosis. No renal cystic lesion which requires follow up. No solid mas s. Bowel and peritoneum: The small bowel is nondistended. No free air. Small amount of free fluid is see n around the liver and pelvis. No abscess. A normal appendix is not definitively visualized and there fore acute appendicitis cannot be excluded. There multiple loops of small bowel in the right lower qu adrant. No right lower quadrant inflammation. Lymph nodes: No central or retroperitoneal adenopathy. Vessels: No infrarenal aortic aneurysm. PELVIS Reproductive organs: Unremarkable. Bladder: No wall thickness, accounting for underdistension. Pelvic lymph nodes: No pelvic adenopathy by size criteria. Bones: No aggressive osseous abnormality. Multilevel degenerative changes. Other: No significant ventral or inguinal hernia. IMPRESSION: 1. No acute abdominal or pelvic abnormality. 2. Fluid is noted around the liver and in the pelvis of uncertain etiology. 3. The appendix is not definitively visualized and therefore acute appendix cannot be excluded. Reviewed by: Daryl Christensen on 12/27/2022 7:04 PM PDT Approved by: Daryl Christensen on 12/27/2022 7:04 PM PDT Station ID: [id number]
[2022-12-27] MEDS ORDERED: AZITHROMYCIN INJ 500 MG in SODIUM CHLORIDE 0.9% 250 ML IV STA (19:26)
[2022-12-27] MEDS ORDERED: cefTRIAXone 1 GM VIAL IVP STA (19:26)
[2022-12-27] MEDS ORDERED: ONDANSETRON 4 MG/2 ML VIAL IVP PRN (20:05)
[2022-12-27] MEDS ORDERED: iohexoL-300 100 ML VIAL IVP ONE (20:27)
[2022-12-27] MEDS ORDERED: LORazepam 2 MG/ML VIAL IVP PRN (20:28)
--- NOTE | 2022-12-27 20:37 | HISTORY & PHYSICAL EXAMINATION ---
Chief Complaint - Chief Complaint Chief Complaint: SOB, Abdominal pain History of Present Illness - History of Present Illness HPI Comment/Other: 77 y old male with PMH Alcohol abuse, COPD on home oxugen, A fib not on anti cogaulation BIBA came with c/o abdominal pain and SOB for 1 day. Patient is on Bipap so most of the history is from at bed side. As per , patient c/o pain in right lower quadrant since this am. Denies nausea, vomiting, diarrhea, constipation. Patient also c/o SOB. Denies fever, cough, chest pain, symptoms On presentation, patient was quite tachypnic, tachycardic and hypoxic. Patient was put on Bipap Labs showed leukocytosis CXR showed B/L lung opacities CT abdoem/pelvis showed no acute abnormalities CT angio chest showed no acute PE In ER, patient was given IV solumedrol, IV Lasix Patient also received 2 doses of diltiazem for A fib with RVR Patient is being admitted due to Acute on chronic respiratory failure due to COPD exacerbation, possible PNA, Atrial with RVR, alcohol withdrawl, abdominal pain History - Past Medical History Cardiovascular: reports: None Respiratory: reports: COPD Neuro: reports: None Endocrine/Autoimmune: reports: None GI: reports: None : reports: Incontinence Psych: reports: None Musculoskeletal: reports: None Derm: reports: None - Past Surgical History HEENT: reports: Cataracts - Family & Social History Family History Comment/Other: Difficult to obtain family history at this moment given he is in respiratory distress and on BiPAP. Social History Notes: He continues to smoke one pack per day. He has smoked for over 35 years. Unable to obtain further social history at this time given his respiratory distress and use of BiPAP. - Substance History Use: Uses substance without health or social issues: Tobacco Meds/Allgy - Home Medications Home Medications: Ambulatory Orders Medication Instructions Recorded Confirmed hydrOXYzine HCL [Hydroxyzine HCl] 25 mg PO QID PRN 08/29/19 08/29/19 Albuterol 2.5 mg INH RTQ4H PRN neb 09/03/19 Nebulizer [Aeroneb Go Nebulizer] 1 each MC QID #1 each 09/03/19 Thiamine [Vitamin B-1] 100 mg PO DAILY tablet 09/03/19 buPROPion [Wellbutrin Sr] 150 mg PO BID #37 tablet 09/03/19 Albuterol Sulfate [Proair 90 mcg IH Q4HR PRN 12/27/22 12/27/22 Respiclick] Apixaban [Eliquis] 5 mg PO BID 12/27/22 12/27/22 Benzonatate 1 cap PO Q8HR 12/27/22 12/27/22 Budesonide/Formoterol Fumarate 1 puffs INH DAILY 12/27/22 12/27/22 [Symbicort 160-4.5 Mcg Inhaler] Furosemide [Lasix] 20 mg PO DAILY 12/27/22 12/27/22 - Allergies Allergies/Adverse Reactions: Allergies Allergy/AdvReac Type Severity Reaction Status Date / Time bee pollen Allergy Unknown Verified 12/27/22 16:35 Penicillins Allergy Unknown Verified 12/27/22 16:35 Review of Systems - Other Findings Other Findings: Unable to obtain due to patient clinical condition Exam - Vital Signs Vital Signs: Vital Signs x48h Temp Pulse Resp BP Pulse Ox O2 Flow Rate 12/27/22 18:37 117 H 24 122/83 H 94 12/27/22 18:00 118 H 27 H 107/81 H 95 12/27/22 17:23 121 H 24 104/84 H 92 12/27/22 17:07 115 H 22 12/27/22 16:30 115 H 20 113/77 88 L 4 12/27/22 16:28 37.3 C 118 H 25 H 110/87 H 90 L - Physical Exam General Appearance: positive: Moderate distress, Other (on BIPAP) Eyes Bilateral: positive: Normal inspection ENT: positive: ENT inspection nml Neck: positive: Nml inspection Respiratory: positive: Breath sounds nml Cardiovascular: positive: Irregularly irregular, Tachycardia Abdomen: positive: Non-tender, Nml bowel sounds Skin: positive: No rash Extremities: positive: No pedal edema Neurologic/Psychiatric: positive: Motor nml Conclusion/Plan - Lab Results Fish Bones: 12/27/22 16:28 12/27/22 16:28 - Other Other Results/Comments: A: Acute on chronic respiratory failure COPD exacerbation Pneumonia Atrial fib with RVR Alcohol withdrawl Abdominal pain Plan: Admit in ICU Bipap Start solumedrol 40 mg iv q6h Duo nebs q6h Start Rocephin and zithromax Follow cultures Echo Start Lasix 40 mg iv q12h Monitor I/O, electrolytes Seriel cardiac enzymes Start cardizem gtt Start lovenox 1 mg/kg sq q12h Start alcohol withdrawl protocol Ativan iv prn Thiamine 100 mg iv daily Folic acid 1 mg iv daily Supportive care DVT prophylaxic: SCD, Lovenox sq Full code Condition: Critical Patient is admitted as inpatient as more than 2 midnight stay is expected
[2022-12-27] MEDS: ENOXAPARIN 100 MG/ML SYRINGE SUBQ SCH (20:38)
[2022-12-27] MEDS ORDERED: methylPREDNISolone SUCCINATE 40 MG in SODIUM CHLORIDE 0.9% 250 ML IV SCH (21:00)
[2022-12-27] MEDS ORDERED: ENOXAPARIN 100 MG/ML SYRINGE SUBQ SCH (21:00)
[2022-12-27] MEDS: diltiaZEM INJ 125 MG in DEXTROSE 5% 100 ML IV SCH (22:01)
[2022-12-27] MEDS: FUROSEMIDE 40 MG/4 ML VIAL IVP SCH (22:01)
[2022-12-27] MEDS: methylPREDNISolone SUCCINATE 40 MG/ML VIAL IVP SCH (22:01)
[2022-12-28] MEDS: SODIUM CHLORIDE FLUSH 0.9% 10 ML SYRINGE IVP SCH ×3 (01:46→17:56)
[2022-12-28] MEDS: SODIUM CHLORIDE FLUSH 0.9% 10 ML SYRINGE IVP PRN ×4 (05:08→14:34)
[2022-12-28] MEDS: methylPREDNISolone SUCCINATE 40 MG/ML VIAL IVP SCH ×4 (05:08→22:07)
[2022-12-28 05:09] LABS: BASOPHILS % (AUTO) 0.2 %; HCT - HEMATOCRIT 39.9 % (42.0-52.0); HGB - HEMOGLOBIN 12.9 g/dL (14.0-18.0); LYMPHOCYTES # (AUTO) 0.4 10^3/uL (1.5-3.5); LYMPHOCYTES % (AUTO) 3.3 %; MEAN CORPUSCULAR HEMOGLOBIN 30.9 pg (27.0-31.0); MEAN CORPUSCULAR HGB CONC 32.3 g/dL (32.0-36.0); MEAN CORPUSCULAR VOLUME 95.5 fL (80.0-94.0); MEAN PLATELET VOLUME 10.5 fL (7.4-11.4); MONOCYTES # (AUTO) 0.3 10^3/uL (0.0-1.0); MONOCYTES % (AUTO) 2.1 %; NEUTROPHILS # (AUTO) 12.3 10^3/uL (1.5-6.6); NEUTROPHILS % (AUTO) 93.8 %; PLT - PLATELET COUNT 121 10^3/uL (130-450); RED BLOOD COUNT 4.18 10^6/uL (4.70-6.10); RED CELL DISTRIBUTION WIDTH 14.6 % (12.0-15.0); WHITE BLOOD COUNT 13.1 x10^3/uL (4.8-10.8)
[2022-12-28 05:25] LABS: CALCIUM, IONIZED 1.1 mmol/L (1.15-1.33); VBG PH 7.469 (7.31-7.41)
[2022-12-28] MEDS ORDERED: CALCIUM GLUC 1,000MG/50ML-NACL 1,000 MG/50 ML BAG IV ONE (05:42)
[2022-12-28 05:43] LABS: CALCIUM 8.9 mg/dL (8.5-10.3); CREATININE 0.9 mg/dL (0.6-1.2); MAGNESIUM 1.8 mg/dL (1.7-2.8); PHOSPHORUS 3.6 mg/dL (2.5-4.6); POTASSIUM 3.6 mmol/L (3.5-5.0)
[2022-12-28] MEDS ORDERED: MAGNESIUM SULFATE 2 GRAM 2 GM/50 ML BAG IV ONE (06:03)
[2022-12-28] MEDS: diltiaZEM INJ 125 MG in DEXTROSE 5% 100 ML IV SCH ×2 (07:29→15:46)
[2022-12-28] MEDS: POTASSIUM CHLOR 10 MEQ/100 ML 10 MEQ/100 ML BAG IV SCH ×2 (08:20→09:43)
[2022-12-28 08:34] LABS: ABG PCO2 38 mmHg (34-45); ABG PH 7.45 (7.35-7.45)
[2022-12-28 08:35] LABS: ABG HCO3 25.9 mmol/L (22.0-26.0); ABG OXYGEN SATURATION 95 % (94-98); ABG PO2 77 mmHg (80-100); ABG TCO2 27.1 MMOL/L (21.0-29.0); ALLEN TEST POSITIVE
[2022-12-28] MEDS: IPRATROPIUM/ALBUTEROL 3 ML NEB INH SCH ×3 (08:55→13:17)
[2022-12-28] MEDS ORDERED: THIAMINE INJ 100 MG in SODIUM CHLORIDE 0.9% 50 ML IV SCH (09:00)
[2022-12-28] MEDS ORDERED: FOLIC ACID INJ 1 MG in SODIUM CHLORIDE 0.9% 1,000 ML IV SCH (09:00)
[2022-12-28] MEDS: cefTRIAXone 1 GM in SODIUM CHLORIDE 0.9% MINIBAG 100 ML IV SCH (09:47)
[2022-12-28] MEDS: AZITHROMYCIN INJ 500 MG in SODIUM CHLORIDE 0.9% 250 ML IV SCH (09:48)
[2022-12-28] MEDS: FUROSEMIDE 40 MG/4 ML VIAL IVP SCH (10:02)
[2022-12-28] MEDS: ENOXAPARIN 100 MG/ML SYRINGE SUBQ SCH ×2 (10:06→20:33)
--- NOTE | 2022-12-28 11:26 | PROVIDER PROGRESS NOTE ---
Subjective - Subjective Pt reports feeling: Improved (He is sleeping comfortably, wearing his BiPAP mask. I saw him later in the afternoon and he was awake, able to sit up and dangle, was wearing high flow nasal cannula, alert and conversing with nurses) Objective - Vital Signs/Intake & Output Reviewed Vital Signs: Yes Vital Signs: Vital Signs Temp Pulse Pulse Resp BP Pulse Ox 12/28/22 10:00 76 17 92/77 96 12/28/22 09:05 72 19 12/28/22 09:00 73 18 98/72 94 12/28/22 08:33 36.4 C L 12/28/22 08:07 83 12/28/22 08:00 71 16 89/64 L 97 Intake & Output: Intake & Output 12/25/22 12/26/22 12/27/22 12/28/22 23:59 23:59 23:59 23:59 Intake Total 256.833 418.167 Output Total 900 Balance 256.833 -481.833 - Objective General Appearance: positive: No acute distress Eyes Bilateral: positive: No lid inflammation ENT: positive: Other (First wearing BiPAP, later in the afternoon wearing high flow nasal cannula. He appears disheveled) Neck: positive: Other (Cannot evaluate JVP due to a ren) Respiratory: positive: No respiratory distress (On supplemental O2 per), Other (Poor air movement) Cardiovascular: positive: Other (Distant heart sounds due to COPD) Abdomen: positive: Non-tender, No distention Skin: positive: Warm, Dry Extremities: positive: Non-tender, No pedal edema Neurologic/Psychiatric: positive: Oriented x3, Motor nml, Other (No nystagmus, no tremor) - Lab Results Fish Bones: 12/28/22 04:30 12/28/22 18:09 Other Labs: Lab Results x24hrs 12/28/22 12/28/22 12/28/22 Range/Units 08:20 04:30 04:30 WBC (4.8-10.8) x10^3/uL RBC (4.70-6.10) 10^6/uL Hgb (14.0-18.0) g/dL Hct (42.0-52.0) % MCV (80.0-94.0) fL MCH (27.0-31.0) pg MCHC (32.0-36.0) g/dL RDW (12.0-15.0) % Plt Count (130-450) 10^3/uL MPV (7.4-11.4) fL Neut # (Auto) (1.5-6.6) 10^3/uL Lymph # (Auto) (1.5-3.5) 10^3/uL [place] # (Auto) (0.0-1.0) 10^3/uL Eos # (Auto) (0.0-0.7) 10^3/uL Baso # (Auto) (0.0-0.1) 10^3/uL Absolute Nucleated RBC x10^3/uL Nucleated RBC % /100WBC PT (9.9-12.6) secs INR (0.8-1.2) Bld Gas Analysis Time 08:20 Sample Site LEFT RADIAL ABG pH 7.45 (7.35-7.45) ABG pCO2 38 (34-45) mmHg ABG pO2 77 L (80-100) mmHg ABG HCO3 25.9 (22.0-26.0) mmol/L ABG Total CO2 27.1 (21.0-29.0) MMOL/L ABG O2 Saturation 95 (94-98) % ABG Base Excess 2.0 (-2.0-3.0) mmol/L Sathish Test POSITIVE VBG pH 7.469 H (7.31-7.41) Ionized Calcium 1.10 L (1.15-1.33) mmol/L O2 Delivery Device BiPAP FiO2 35.00 PEEP 5 cmH2O EPAP cmH2O IPAP 10 cmH2O Sodium 142 (135-145) mmol/L Potassium 3.6 (3.5-5.0) mmol/L Chloride 108 (101-111) mmol/L Carbon Dioxide 25 (21-32) mmol/L Anion Gap 9.0 (6-13) BUN 26 H (6-20) mg/dL Creatinine 0.9 (0.6-1.2) mg/dL Estimated GFR (MDRD) 81 L (>89) Glucose 189 H (70-100) mg/dL Lactic Acid (0.5-2.2) mmol/L Calcium 8.9 (8.5-10.3) mg/dL Phosphorus 3.6 (2.5-4.6) mg/dL Magnesium 1.8 (1.7-2.8) mg/dL Total Bilirubin (0.2-1.0) mg/dL AST (10-42) IU/L ALT (10-60) IU/L Alkaline Phosphatase (42-121) IU/L Troponin I High Sens (2.3-19.7) ng/L B-Natriuretic Peptide (5-100) pg/mL Total Protein (6.7-8.2) g/dL Albumin (3.2-5.5) g/dL Globulin (2.1-4.2) g/dL Albumin/Globulin Ratio (1.0-2.2) Lipase (22-51) U/L Nasal Adenovirus (PCR) Nasal B. parapertussis DNA (PCR) Nasal Coronavir 229E PCR Nasal Coronavir HKU1 PCR Nasal Coronavir NL63 PCR Nasal Coronavir OC43 PCR Nasal Enterovir/Rhinovir PCR Nasal Influenza B PCR Nasal Influenza A PCR Nasal Parainfluen 1 PCR Nasal Parainfluen 2 PCR Nasal Parainfluen 3 PCR Nasal Parainfluen 4 PCR Nasal RSV (PCR) Nasal B.pertussis DNA PCR Nasal C.pneumoniae (PCR) Tarun Human Metapneumo PCR Nasal M.pneumoniae (PCR) Nasal SARS-CoV-2 (PCR) Ethyl Alcohol mg/dL 12/28/22 12/27/22 12/27/22 Range/Units 04:30 20:30 18:07 WBC 13.1 H (4.8-10.8) x10^3/uL RBC 4.18 L (4.70-6.10) 10^6/uL Hgb 12.9 L (14.0-18.0) g/dL Hct 39.9 L (42.0-52.0) % MCV 95.5 H (80.0-94.0) fL MCH 30.9 (27.0-31.0) pg MCHC 32.3 (32.0-36.0) g/dL RDW 14.6 (12.0-15.0) % Plt Count 121 L (130-450) 10^3/uL MPV 10.5 (7.4-11.4) fL Neut # (Auto) 12.3 H (1.5-6.6) 10^3/uL Lymph # (Auto) 0.4 L (1.5-3.5) 10^3/uL [place] # (Auto) 0.3 (0.0-1.0) 10^3/uL Eos # (Auto) 0.0 (0.0-0.7) 10^3/uL Baso # (Auto) 0.0 (0.0-0.1) 10^3/uL Absolute Nucleated RBC 0.00 x10^3/uL Nucleated RBC % 0.0 /100WBC PT (9.9-12.6) secs INR (0.8-1.2) Bld Gas Analysis Time 1812 Sample Site RIGHT RADIAL ABG pH 7.46 H (7.35-7.45) ABG pCO2 34 (34-45) mmHg ABG pO2 71 L (80-100) mmHg ABG HCO3 23.4 (22.0-26.0) mmol/L ABG Total CO2 24.5 (21.0-29.0) MMOL/L ABG O2 Saturation 94 (94-98) % ABG Base Excess 0.1 (-2.0-3.0) mmol/L Sathish Test POSITIVE VBG pH (7.31-7.41) Ionized Calcium (1.15-1.33) mmol/L O2 Delivery Device BiPAP FiO2 35.00 PEEP cmH2O EPAP 5 cmH2O IPAP 12 cmH2O Sodium (135-145) mmol/L Potassium (3.5-5.0) mmol/L Chloride (101-111) mmol/L Carbon Dioxide (21-32) mmol/L Anion Gap (6-13) BUN (6-20) mg/dL Creatinine (0.6-1.2) mg/dL Estimated GFR (MDRD) (>89) Glucose (70-100) mg/dL Lactic Acid (0.5-2.2) mmol/L Calcium (8.5-10.3) mg/dL Phosphorus (2.5-4.6) mg/dL Magnesium (1.7-2.8) mg/dL Total Bilirubin (0.2-1.0) mg/dL AST (10-42) IU/L ALT (10-60) IU/L Alkaline Phosphatase (42-121) IU/L Troponin I High Sens 15.0 (2.3-19.7) ng/L B-Natriuretic Peptide (5-100) pg/mL Total Protein (6.7-8.2) g/dL Albumin (3.2-5.5) g/dL Globulin (2.1-4.2) g/dL Albumin/Globulin Ratio (1.0-2.2) Lipase (22-51) U/L Nasal Adenovirus (PCR) Nasal B. parapertussis DNA (PCR) Nasal Coronavir 229E PCR Nasal Coronavir HKU1 PCR Nasal Coronavir NL63 PCR Nasal Coronavir OC43 PCR Nasal Enterovir/Rhinovir PCR Nasal Influenza B PCR Nasal Influenza A PCR Nasal Parainfluen 1 PCR Nasal Parainfluen 2 PCR Nasal Parainfluen 3 PCR Nasal Parainfluen 4 PCR Nasal RSV (PCR) Nasal B.pertussis DNA PCR Nasal C.pneumoniae (PCR) Tarun Human Metapneumo PCR Nasal M.pneumoniae (PCR) Nasal SARS-CoV-2 (PCR) Ethyl Alcohol mg/dL 12/27/22 12/27/22 12/27/22 Range/Units 18:00 16:28 16:28 WBC (4.8-10.8) x10^3/uL RBC (4.70-6.10) 10^6/uL Hgb (14.0-18.0) g/dL Hct (42.0-52.0) % MCV (80.0-94.0) fL MCH (27.0-31.0) pg MCHC (32.0-36.0) g/dL RDW (12.0-15.0) % Plt Count (130-450) 10^3/uL MPV (7.4-11.4) fL Neut # (Auto) (1.5-6.6) 10^3/uL Lymph # (Auto) (1.5-3.5) 10^3/uL [place] # (Auto) (0.0-1.0) 10^3/uL Eos # (Auto) (0.0-0.7) 10^3/uL Baso # (Auto) (0.0-0.1) 10^3/uL Absolute Nucleated RBC x10^3/uL Nucleated RBC % /100WBC PT (9.9-12.6) secs INR (0.8-1.2) Bld Gas Analysis Time Sample Site ABG pH (7.35-7.45) ABG pCO2 (34-45) mmHg ABG pO2 (80-100) mmHg ABG HCO3 (22.0-26.0) mmol/L ABG Total CO2 (21.0-29.0) MMOL/L ABG O2 Saturation (94-98) % ABG Base Excess (-2.0-3.0) mmol/L Sathish Test VBG pH (7.31-7.41) Ionized Calcium (1.15-1.33) mmol/L O2 Delivery Device FiO2 PEEP cmH2O EPAP cmH2O IPAP cmH2O Sodium (135-145) mmol/L Potassium (3.5-5.0) mmol/L Chloride (101-111) mmol/L Carbon Dioxide (21-32) mmol/L Anion Gap (6-13) BUN (6-20) mg/dL Creatinine (0.6-1.2) mg/dL Estimated GFR (MDRD) (>89) Glucose (70-100) mg/dL Lactic Acid 2.0 (0.5-2.2) mmol/L Calcium (8.5-10.3) mg/dL Phosphorus (2.5-4.6) mg/dL Magnesium (1.7-2.8) mg/dL Total Bilirubin (0.2-1.0) mg/dL AST (10-42) IU/L ALT (10-60) IU/L Alkaline Phosphatase (42-121) IU/L Troponin I High Sens (2.3-19.7) ng/L B-Natriuretic Peptide (5-100) pg/mL Total Protein (6.7-8.2) g/dL Albumin (3.2-5.5) g/dL Globulin (2.1-4.2) g/dL Albumin/Globulin Ratio (1.0-2.2) Lipase (22-51) U/L Nasal Adenovirus (PCR) NOT DETECTED Nasal B. parapertussis DNA (PCR) NOT DETECTED Nasal Coronavir 229E PCR NOT DETECTED Nasal Coronavir HKU1 PCR NOT DETECTED Nasal Coronavir NL63 PCR NOT DETECTED Nasal Coronavir OC43 PCR NOT DETECTED Nasal Enterovir/Rhinovir PCR NOT DETECTED Nasal Influenza B PCR NOT DETECTED Nasal Influenza A PCR NOT DETECTED Nasal Parainfluen 1 PCR NOT DETECTED Nasal Parainfluen 2 PCR NOT DETECTED Nasal Parainfluen 3 PCR NOT DETECTED Nasal Parainfluen 4 PCR NOT DETECTED Nasal RSV (PCR) NOT DETECTED Nasal B.pertussis DNA PCR NOT DETECTED Nasal C.pneumoniae (PCR) NOT DETECTED Tarun Human Metapneumo PCR NOT DETECTED Nasal M.pneumoniae (PCR) NOT DETECTED Nasal SARS-CoV-2 (PCR) NOT DETECTED Ethyl Alcohol < 5.0 mg/dL 12/27/22 12/27/22 12/27/22 Range/Units 16:28 16:28 16:28 WBC (4.8-10.8) x10^3/uL RBC (4.70-6.10) 10^6/uL Hgb (14.0-18.0) g/dL Hct (42.0-52.0) % MCV (80.0-94.0) fL MCH (27.0-31.0) pg MCHC (32.0-36.0) g/dL RDW (12.0-15.0) % Plt Count (130-450) 10^3/uL MPV (7.4-11.4) fL Neut # (Auto) (1.5-6.6) 10^3/uL Lymph # (Auto) (1.5-3.5) 10^3/uL [place] # (Auto) (0.0-1.0) 10^3/uL Eos # (Auto) (0.0-0.7) 10^3/uL Baso # (Auto) (0.0-0.1) 10^3/uL Absolute Nucleated RBC x10^3/uL Nucleated RBC % /100WBC PT (9.9-12.6) secs INR (0.8-1.2) Bld Gas Analysis Time Sample Site ABG pH (7.35-7.45) ABG pCO2 (34-45) mmHg ABG pO2 (80-100) mmHg ABG HCO3 (22.0-26.0) mmol/L ABG Total CO2 (21.0-29.0) MMOL/L ABG O2 Saturation (94-98) % ABG Base Excess (-2.0-3.0) mmol/L Sathish Test VBG pH (7.31-7.41) Ionized Calcium (1.15-1.33) mmol/L O2 Delivery Device FiO2 PEEP cmH2O EPAP cmH2O IPAP cmH2O Sodium 141 (135-145) mmol/L Potassium 4.5 (3.5-5.0) mmol/L Chloride 108 (101-111) mmol/L Carbon Dioxide 24 (21-32) mmol/L Anion Gap 9.0 (6-13) BUN 29 H (6-20) mg/dL Creatinine 0.8 (0.6-1.2) mg/dL Estimated GFR (MDRD) 93 (>89) Glucose 127 H (70-100) mg/dL Lactic Acid (0.5-2.2) mmol/L Calcium 9.7 (8.5-10.3) mg/dL Phosphorus (2.5-4.6) mg/dL Magnesium (1.7-2.8) mg/dL Total Bilirubin 1.5 H (0.2-1.0) mg/dL AST 35 (10-42) IU/L ALT 38 (10-60) IU/L Alkaline Phosphatase 87 (42-121) IU/L Troponin I High Sens 12.4 (2.3-19.7) ng/L B-Natriuretic Peptide 206 H (5-100) pg/mL Total Protein 7.2 (6.7-8.2) g/dL Albumin 4.1 (3.2-5.5) g/dL Globulin 3.1 (2.1-4.2) g/dL Albumin/Globulin Ratio 1.3 (1.0-2.2) Lipase 29 (22-51) U/L Nasal Adenovirus (PCR) Nasal B. parapertussis DNA (PCR) Nasal Coronavir 229E PCR Nasal Coronavir HKU1 PCR Nasal Coronavir NL63 PCR Nasal Coronavir OC43 PCR Nasal Enterovir/Rhinovir PCR Nasal Influenza B PCR Nasal Influenza A PCR Nasal Parainfluen 1 PCR Nasal Parainfluen 2 PCR Nasal Parainfluen 3 PCR Nasal Parainfluen 4 PCR Nasal RSV (PCR) Nasal B.pertussis DNA PCR Nasal C.pneumoniae (PCR) Tar[place] Human Metapneumo PCR Nasal M.pneumoniae (PCR) Nasal SARS-CoV-2 (PCR) Ethyl Alcohol mg/dL 12/27/22 12/27/22 Range/Units 16:28 16:28 WBC 13.1 H (4.8-10.8) x10^3/uL RBC 4.70 (4.70-6.10) 10^6/uL Hgb 14.3 (14.0-18.0) g/dL Hct 44.7 (42.0-52.0) % MCV 95.1 H (80.0-94.0) fL MCH 30.4 (27.0-31.0) pg MCHC 32.0 (32.0-36.0) g/dL RDW 14.6 (12.0-15.0) % Plt Count 159 (130-450) 10^3/uL MPV 10.0 (7.4-11.4) fL Neut # (Auto) 11.9 H (1.5-6.6) 10^3/uL Lymph # (Auto) 0.4 L (1.5-3.5) 10^3/uL [place] # (Auto) 0.6 (0.0-1.0) 10^3/uL Eos # (Auto) 0.0 (0.0-0.7) 10^3/uL Baso # (Auto) 0.1 (0.0-0.1) 10^3/uL Absolute Nucleated RBC 0.00 x10^3/uL Nucleated RBC % 0.0 /100WBC PT 13.5 H (9.9-12.6) secs INR 1.2 (0.8-1.2) Bld Gas Analysis Time Sample Site ABG pH (7.35-7.45) ABG pCO2 (34-45) mmHg ABG pO2 (80-100) mmHg ABG HCO3 (22.0-26.0) mmol/L ABG Total CO2 (21.0-29.0) MMOL/L ABG O2 Saturation (94-98) % ABG Base Excess (-2.0-3.0) mmol/L Sathish Test VBG pH (7.31-7.41) Ionized Calcium (1.15-1.33) mmol/L O2 Delivery Device FiO2 PEEP cmH2O EPAP cmH2O IPAP cmH2O Sodium (135-145) mmol/L Potassium (3.5-5.0) mmol/L Chloride (101-111) mmol/L Carbon Dioxide (21-32) mmol/L Anion Gap (6-13) BUN (6-20) mg/dL Creatinine (0.6-1.2) mg/dL Estimated GFR (MDRD) (>89) Glucose (70-100) mg/dL Lactic Acid (0.5-2.2) mmol/L Calcium (8.5-10.3) mg/dL Phosphorus (2.5-4.6) mg/dL Magnesium (1.7-2.8) mg/dL Total Bilirubin (0.2-1.0) mg/dL AST (10-42) IU/L ALT (10-60) IU/L Alkaline Phosphatase (42-121) IU/L Troponin I High Sens (2.3-19.7) ng/L B-Natriuretic Peptide (5-100) pg/mL Total Protein (6.7-8.2) g/dL Albumin (3.2-5.5) g/dL Globulin (2.1-4.2) g/dL Albumin/Globulin Ratio (1.0-2.2) Lipase (22-51) U/L Nasal Adenovirus (PCR) Nasal B. parapertussis DNA (PCR) Nasal Coronavir 229E PCR Nasal Coronavir HKU1 PCR Nasal Coronavir NL63 PCR Nasal Coronavir OC43 PCR Nasal Enterovir/Rhinovir PCR Nasal Influenza B PCR Nasal Influenza A PCR Nasal Parainfluen 1 PCR Nasal Parainfluen 2 PCR Nasal Parainfluen 3 PCR Nasal Parainfluen 4 PCR Nasal RSV (PCR) Nasal B.pertussis DNA PCR Nasal C.pneumoniae (PCR) Tarun Human Metapneumo PCR Nasal M.pneumoniae (PCR) Nasal SARS-CoV-2 (PCR) Ethyl Alcohol mg/dL Assessment/Plan - Problem List (1) Acute and chronic respiratory failure with hypoxia Impression: He was admitted to the ICU because he needed BiPAP. Plan: As per RT, we are slowly decreasing the setting on BiPAP, giving him breaks and putting him on high flow humidified oxygen Remain in the ICU in case he needs nightly BiPAP. If he needs less and less BiPAP support, anticipate transfer out of ICU soon 2) COPD exacerbation This was probably caused by the pneumonia Plan: Continue with DuoNebs, steroids, antibiotics, supplemental O2 3) CAP Plan: Continue with empiric antibiotics Await sputum and blood culture results to tailor antibiotics 4) Atrial fib with RVR With medications ordered, his heart rate has improved down to 8200 Plan: Will order his usual home medications, now that he is able to take p.o. meds, is more awake and able to come off BiPAP, once the medication list is reconciled by pharmacy 5) Alcohol withdrawl Patient describes alcohol abuse Plan: Continue with CIWA protocol It appears that he does not need additional scheduled Librium, is getting through his withdrawal without problems 6) Chronic systolic heart failure The patient is not in CHF exacerbation. Plan: We will resume his usual cardiac meds, once the list is reconciled by pharmacy 7) Abdominal pain Resolved.
--- NOTE | 2022-12-28 13:53 | PHARMACY PROGRESS NOTE ---
- Best Possible Medication History Admit Date and Time: 12/27/221957 Processed by: Pharmacy Medication History completed: Yes Patient Interview: Completed Secondary Source(s): Insurance records (PT STATES HE HAS A BOTTLE LABELED WITH "[employer]" AT HOME BUT HE DOESN'T TAKE. WHEN ASKED IF HE KNOWS WHAT IT'S FOR HE SAID "YES, IT'S A BLOOD THINNER." PT STATES HE DOESN'T THINK HE NEEDS IT AND IT WOULD JUST GET RID OF ALL THE FLUID IN HIS BODY.) As the person ultimately responsible for medication therapy, providers are able to order a medication from an existing home medication list in [facility] via the "Reconcile Routine" prior to Confirmation of that medication by business support administrator. Such practice is discouraged except when the physician, in their clinical judgment, deems that a medical need exists for a medication without regard to previous use.
[2022-12-28] MEDS ORDERED: hydrOXYzine PAMOATE 25 MG CAPSULE PO PRN (16:27)
[2022-12-28] MEDS ORDERED: IBUPROFEN 400 MG TABLET PO PRN (16:30)
[2022-12-28 18:29] LABS: MAGNESIUM 2.3 mg/dL (1.7-2.8); POTASSIUM 3.7 mmol/L (3.5-5.0)
[2022-12-28] MEDS: buPROPion SR 150 MG TABLET PO SCH (20:33)
[2022-12-28] MEDS ORDERED: diltiaZEM INJ 5 MG/ML VIAL ONE ×2 (23:32→23:34)
[2022-12-29] MEDS: diltiaZEM INJ 125 MG in DEXTROSE 5% 100 ML IV SCH (03:14)
[2022-12-29 04:34] LABS: BASOPHILS % (AUTO) 0.1 %; HCT - HEMATOCRIT 38.1 % (42.0-52.0); HGB - HEMOGLOBIN 12.3 g/dL (14.0-18.0); LYMPHOCYTES # (AUTO) 0.5 10^3/uL (1.5-3.5); LYMPHOCYTES % (AUTO) 3.2 %; MEAN CORPUSCULAR HGB CONC 32.3 g/dL (32.0-36.0); MEAN PLATELET VOLUME 10.6 fL (7.4-11.4); MONOCYTES # (AUTO) 0.4 10^3/uL (0.0-1.0); MONOCYTES % (AUTO) 2.7 %; NEUTROPHILS # (AUTO) 14.8 10^3/uL (1.5-6.6); NEUTROPHILS % (AUTO) 93.2 %; PLT - PLATELET COUNT 157 10^3/uL (130-450); RED BLOOD COUNT 3.97 10^6/uL (4.70-6.10); RED CELL DISTRIBUTION WIDTH 14.8 % (12.0-15.0); WHITE BLOOD COUNT 15.9 x10^3/uL (4.8-10.8)
[2022-12-29 04:55] LABS: CALCIUM 8.8 mg/dL (8.5-10.3); CREATININE 1.3 mg/dL (0.6-1.2); POTASSIUM 4.3 mmol/L (3.5-5.0)
[2022-12-29] MEDS: methylPREDNISolone SUCCINATE 40 MG/ML VIAL IVP SCH ×3 (05:59→21:59)
[2022-12-29] MEDS: IPRATROPIUM/ALBUTEROL 3 ML NEB INH SCH ×3 (07:39→13:22)
[2022-12-29] MEDS: SODIUM CHLORIDE FLUSH 0.9% 10 ML SYRINGE IVP SCH ×4 (07:55→22:03)
[2022-12-29] MEDS: AZITHROMYCIN INJ 500 MG in SODIUM CHLORIDE 0.9% 250 ML IV SCH (09:21)
[2022-12-29] MEDS: cefTRIAXone 1 GM in SODIUM CHLORIDE 0.9% MINIBAG 100 ML IV SCH (09:21)
[2022-12-29] MEDS: ENOXAPARIN 100 MG/ML SYRINGE SUBQ SCH ×2 (09:21→22:01)
[2022-12-29] MEDS: THIAMINE 100 MG TABLET PO SCH (09:22)
[2022-12-29] MEDS: buPROPion SR 150 MG TABLET PO SCH ×2 (09:22→21:59)
[2022-12-29] MEDS ORDERED: diltiaZEM 30 MG TABLET PO STA (11:10)
--- NOTE | 2022-12-29 14:35 | PROVIDER PROGRESS NOTE ---
Subjective - Subjective Pt reports feeling: Improved Objective - Vital Signs/Intake & Output Vital Signs: Vital Signs Temp Pulse Resp BP BP Pulse Ox O2 Flow Rate 12/29/22 14:00 107 H 22 102/70 92 6 12/29/22 13:00 36.9 C 98 24 92/68 92 6 12/29/22 12:00 108 H 21 141/115 H 91 L 3 12/29/22 11:25 103/79 12/29/22 11:00 109 H 27 H 103/79 94 3 Intake & Output: Intake & Output 12/26/22 12/27/22 12/28/22 12/29/22 23:59 23:59 23:59 23:59 Intake Total 189.929 6709.417 2385.034 Output Total 1675 150 Balance 256.833 769.331 1324.034 - Objective General Appearance: positive: No acute distress, Other (Appears disheveled) Eyes Bilateral: positive: Normal inspection, No lid inflammation ENT: positive: No signs of dehydration, Other (wearing Hi Flow n.c. O2) Neck: positive: Nml inspection Respiratory: positive: Rhonchi Cardiovascular: positive: Regular rate & rhythm Abdomen: positive: No distention Skin: positive: Warm, Dry Extremities: positive: Non-tender - Lab Results Fish Bones: 12/29/22 04:16 12/29/22 04:16 Other Labs: Lab Results x24hrs 12/29/22 12/29/22 12/28/22 Range/Units 04:16 04:16 18:09 WBC 15.9 H (4.8-10.8) x10^3/uL RBC 3.97 L (4.70-6.10) 10^6/uL Hgb 12.3 L (14.0-18.0) g/dL Hct 38.1 L (42.0-52.0) % MCV 96.0 H (80.0-94.0) fL MCH 31.0 (27.0-31.0) pg MCHC 32.3 (32.0-36.0) g/dL RDW 14.8 (12.0-15.0) % Plt Count 157 (130-450) 10^3/uL MPV 10.6 (7.4-11.4) fL Neut # (Auto) 14.8 H (1.5-6.6) 10^3/uL Lymph # (Auto) 0.5 L (1.5-3.5) 10^3/uL [place] # (Auto) 0.4 (0.0-1.0) 10^3/uL Eos # (Auto) 0.0 (0.0-0.7) 10^3/uL Baso # (Auto) 0.0 (0.0-0.1) 10^3/uL Absolute Nucleated RBC 0.00 x10^3/uL Nucleated RBC % 0.0 /100WBC Sodium 140 (135-145) mmol/L Potassium 4.3 3.7 (3.5-5.0) mmol/L Chloride 106 (101-111) mmol/L Carbon Dioxide 24 (21-32) mmol/L Anion Gap 10.0 (6-13) BUN 41 H (6-20) mg/dL Creatinine 1.3 H (0.6-1.2) mg/dL Estimated GFR (MDRD) 53 L (>89) Glucose 185 H (70-100) mg/dL Calcium 8.8 (8.5-10.3) mg/dL Magnesium 2.3 (1.7-2.8) mg/dL Nasal Screen MRSA (PCR) (NEGATIVE) 12/27/22 Range/Units 21:15 WBC (4.8-10.8) x10^3/uL RBC (4.70-6.10) 10^6/uL Hgb (14.0-18.0) g/dL Hct (42.0-52.0) % MCV (80.0-94.0) fL MCH (27.0-31.0) pg MCHC (32.0-36.0) g/dL RDW (12.0-15.0) % Plt Count (130-450) 10^3/uL MPV (7.4-11.4) fL Neut # (Auto) (1.5-6.6) 10^3/uL Lymph # (Auto) (1.5-3.5) 10^3/uL [place] # (Auto) (0.0-1.0) 10^3/uL Eos # (Auto) (0.0-0.7) 10^3/uL Baso # (Auto) (0.0-0.1) 10^3/uL Absolute Nucleated RBC x10^3/uL Nucleated RBC % /100WBC Sodium (135-145) mmol/L Potassium (3.5-5.0) mmol/L Chloride (101-111) mmol/L Carbon Dioxide (21-32) mmol/L Anion Gap (6-13) BUN (6-20) mg/dL Creatinine (0.6-1.2) mg/dL Estimated GFR (MDRD) (>89) Glucose (70-100) mg/dL Calcium (8.5-10.3) mg/dL Magnesium (1.7-2.8) mg/dL Nasal Screen MRSA (PCR) NEGATIVE (NEGATIVE) Assessment/Plan - Problem List (1) Acute and chronic respiratory failure with hypoxia Impression: He was admitted to the ICU because he needed BiPAP. Also treatment was started for his COPD exacerbation and his pneumonia He has not needed the BiPAP for almost 24 hours now, and is on HHF n.c. suppl O2 Plan: Transfer out of ICU today Cont supplemental O2 weaning down as possible, with target satur 88% or higher in a COPDer 2) COPD exacerbation This was likely caused by the pneumonia. He was put on DuoNebs, IV Solu-Medrol and the empiric antibiotics and supplemental O2 With his DuoNeb, he has had recurrence of rapid heart rates but his overall pulmonary status is better. He has not needed the BiPAP for almost a day, is on a High Flow n.c. suppl O2. Plan: Continue with empiric antibiotics, Cont supplemental O2 weaning down as possible, with target satur 88% or higher in a COPDer We will stop the DuoNeb, due to high HRs. Will order Xopenex and will taper nebs down from 4 times daily to 3 times daily Will start weaning down his IV Solu-Medrol PT and OT evals will be ordered. 3) CAP Plan: Continue with empiric iv antibiotics Await sputum and blood culture results to tailor antibiotics 4) Atrial fib with RVR With iv Diltiazem drip ordered, his heart rate improved. However, when the ICU nurse tried to wean down the drip, he went back into rapid rates of about 110 Plan: He is on no HR-slowing home medications, as per the medication list reconciled by pharmacy. Therefore we will start Cardizem orally and try to wean down the Diltiazem drip today to off. We will then transfer the patient out of the ICU, remain on telemetry We will continue with some Cardizem dose going forward. The patient is currently on therapeutic doses of heparin subcu. We will try to adjust this to a DOAC, depending on the patient's request, since he was on no anticoagulant at home, for unknown reason. 5) Alcohol withdrawal Patient described high alcohol use. He was started on a CIWA protocol. He is not scoring high on the CIWA protocol. Schedule doses of Librium was not needed Plan: Continue with CIWA protocol Continue with the daily thiamine order, it can now be oral Also add a daily vitamin 6) Chronic systolic heart failure The patient is not in CHF exacerbation. Plan: We will resume his usual cardiac meds, once the list is reconciled by pharmacy
[2022-12-29] MEDS: LEVALBUTEROL 1.25 MG/3 ML NEB INH SCH ×2 (17:48→18:04)
[2022-12-29] MEDS ORDERED: LEVALBUTEROL 1.25 MG/3 ML NEB INH SCH (21:00)
[2022-12-30] MEDS ORDERED: diltiaZEM INJ 5 MG/ML VIAL IVP ONE (05:22)
[2022-12-30] MEDS: LEVALBUTEROL 1.25 MG/3 ML NEB INH SCH ×3 (07:17→22:45)
[2022-12-30] MEDS: THIAMINE 100 MG TABLET PO SCH (09:05)
[2022-12-30] MEDS: cefTRIAXone 1 GM in SODIUM CHLORIDE 0.9% MINIBAG 100 ML IV SCH (09:05)
[2022-12-30] MEDS: buPROPion SR 150 MG TABLET PO SCH ×2 (09:05→20:39)
[2022-12-30] MEDS: ENOXAPARIN 100 MG/ML SYRINGE SUBQ SCH ×2 (09:32→20:38)
[2022-12-30] MEDS: SODIUM CHLORIDE FLUSH 0.9% 10 ML SYRINGE IVP SCH ×3 (09:34→20:38)
[2022-12-30] MEDS: AZITHROMYCIN INJ 500 MG in SODIUM CHLORIDE 0.9% 250 ML IV SCH (09:36)
[2022-12-30] MEDS ORDERED: DIGOXIN 500 MCG/2 ML AMP IVP STA (14:26)
--- NOTE | 2022-12-30 14:30 | PROVIDER PROGRESS NOTE ---
Assessment/Plan - Problem List (1) Acute and chronic respiratory failure with hypoxia Assessment/Plan: He was admitted to the ICU because he needed BiPAP. Also treatment was started for his COPD exacerbation and his pneumonia When he did not need the BiPAP , and was switched to HHF n.c. suppl O2, he was moved out of the ICU Plan: Cont supplemental O2 weaning down as possible, with target satur 88% or higher in a COPDer Continue to treat the underlying COPD and pneumonia 2) COPD exacerbation This was likely caused by the pneumonia. He was put on DuoNebs, IV Solu-Medrol and the empiric antibiotics and supplemental O2 With his DuoNeb, he has had recurrence of rapid heart rates but his overall pulmonary status is better. He is on a High Flow n.c. suppl O2. Plan: Cont supplemental O2 weaning down as possible, with target satur 88% or higher in a COPDer Continue Xopenex and will taper nebs down from 4 times daily to 3 times daily Will stop IV Solu-Medrol and begin Prednisone 20 mg daily. Plan a very slow taper for this man, to continue after discharge over 6 weeks PT and OT may continue to work with him 3) CAP Plan: Continue with empiric iv antibiotics Await sputum and blood culture results to tailor antibiotics Continue Mucinex 4) Atrial fib with RVR He presented in A-fib with RVR, needed IV Cardizem drip while in the ICU. This was weaned to off on new po meds and he was transferred out of the ICU. He was on no HR-slowing medications at home, as per the medication list reconciled by pharmacy, and I double checked with him today. Therefore we started Cardizem orally. He is now in A-fib at rates between 70 and still goes as high as 130, which sustains. He has needed extra Cardizem IV pushes, ordered by the telemedicine doctor. Because of a "soft" blood pressure, he is only on Cardizem twice a day oral. Plan: I will add digoxin 125 mcg IV today then 125 mcg p.o. daily, given his "soft" BPs, in order to achieve rate control. I will also porder to increase the oral Cardizem from twice daily to 3 times daily, if blood pressure will allow The patient is currently on therapeutic doses of heparin subcu. We will try to adjust this to a DOAC, depending on the patient's request, since he was on no anticoagulant at home, for unknown reason. 5) Cor Pulmonale The Echo done here shows a very dilated RV and very poor RV function. This patient's leg edema with venous stasis confirmed that he has had longstanding right heart failure. His Lasix was not given for a day because his creatinine tyree (all labs were reviewed). Plan: We will resume his oral Lasix today, since leg edema is nearly up to his knees. The Lasix may be adding to his dropping blood pressure therefore the digoxin will be started for the A-fib 6) Chronic systolic heart failure The patient is not in CHF (Left heart failure) exacerbation Plan: We have resumed his usual cardiac meds. I double check with the patient he if he was ever told he had a weak heart and he claims he never did. We will request outside records 7) Alcohol dependence with withdrawal Patient described high alcohol use at admission. He was started on a CIWA protocol. He is not scoring high on the CIWA protocol. Schedule doses of Librium was not needed Plan: Continue with CIWA protocol Continue with the daily oral Thiamine order Continue daily vitamin - Current Meds Current Meds: Current Medications Generic Name Dose Route Start Last Admin Trade Name Freq PRN Reason Stop Dose Admin Bupropion HCl 150 mg 12/28/22 21:00 12/30/22 09:05 Bupropion Sr 150 Mg Tablet PO 150 mg BID EDEL Administration Diltiazem HCl 60 mg 12/30/22 12:00 12/30/22 13:19 Diltiazem 60 Mg Tablet PO Not Given TIDWM EDEL Enoxaparin Sodium 90 mg 12/27/22 21:00 12/30/22 09:32 Enoxaparin 100 Mg/Ml Syringe SUBQ 90 mg Q12H EDEL Administration Ceftriaxone Sodium 1 gm/ 100 mls @ 200 mls/hr 12/28/22 09:00 12/30/22 09:35 Sodium Chloride IV Infused DAILY EDEL Infusion Levalbuterol HCl 1.25 mg 12/29/22 14:25 12/30/22 13:55 Levalbuterol 1.25 Mg/3 Ml Neb INH 1.25 mg TID EDEL Administration Lorazepam 1 mg 12/27/22 20:28 12/27/22 21:10 Lorazepam 2 Mg/Ml Vial IVP 1 mg Q6H PRN Administration Anxiety Sodium Chloride 10 ml 12/28/22 01:00 12/30/22 09:34 Sodium Chloride Flush 0.9% 10 Ml Syringe IVP 10 ml 0100,0900,1700 EDEL Administration Sodium Chloride 10 ml 12/27/22 19:58 12/28/22 14:34 Sodium Chloride Flush 0.9% 10 Ml Syringe IVP 10 ml PRN PRN Administration NEEDED PER PROVIDER ORDERS Thiamine HCl 100 mg 12/29/22 09:00 12/30/22 09:05 Thiamine 100 Mg Tablet PO 100 mg DAILY EDEL Administration - Lab Result Fish Bone Diagrams: 12/31/22 05:09 12/31/22 05:09 - Additional Planning My Orders: My Active Orders 12/29/22 14:22 Telemetry- [RC] Q4HR 12/29/22 14:23 Nebulizer/MDI Tx. [RC] .tid Vital Signs [RC] Q4HR 12/29/22 14:25 Levalbuterol [Xopenex] 1.25 mg INH TID 12/30/22 08:00 methylPREDNISolone SUCCINATE [SOLU-Medrol (40MG VIAL)] 40 mg IVP BID 12/30/22 Lunch DIET [Soft Mechanical Diet] [DIET] 12/30/22 12:00 diltiaZEM [Cardizem] 60 mg PO TIDWM 12/30/22 14:26 Digoxin Inj [Lanoxin Inj] 250 mcg IVP ONCE STA 12/30/22 14:26 Benzonatate [Benzonatate] 1 cap PO Q8HR PRN 12/31/22 05:00 BMP - BASIC METABOLIC PANEL [CHEM] DAILYLAB CBC - COMP BLD CT W/AUTO DIFF [HEME] DAILYLAB MAGNESIUM [CHEM] DAILYLAB TSH [THYROID STIMULATING HORMONE] [IAI] DAILYLAB 12/31/22 09:00 Digoxin [Lanoxin] 125 mcg PO DAILY Furosemide [Lasix] 20 mg PO DAILY Multivitamin with Minerals [Multivitamins with Minerals] 1 tab PO DAILY Subjective - Subjective Patient Reports: Feeling Better, Shortness of Breath (Overall he feels better since admission but the shortness of breath, and cough continue and he says he is no better after nebulized bronchodilator treatments) Objective Vital Signs: Vital Signs - 24 hr 12/29/22 12/29/22 12/29/22 14:45 16:16 17:51 Temperature 36.2 C L Heart Rate Heart Rate [ 108 H Activity] Heart Rate [ 94 Brachial] Heart Rate [ 109 H Sitting] Heart Rate [ 118 H Supine] Respiratory 20 Rate Blood Pressure Blood Pressure 91/72 [Activity] Blood Pressure 105/54 L [Right Brachial artery] Blood Pressure 100/68 [Sitting] Blood Pressure 93/67 [Standing] Blood Pressure 103/79 [Supine] O2 Saturation 96 If not protocol 6 6 : Oxygen Flow, liters/minute 12/29/22 12/29/22 12/29/22 18:04 20:08 21:59 Temperature 36.3 C L Heart Rate 67 Heart Rate [ Activity] Heart Rate [ 121 H Brachial] Heart Rate [ Sitting] Heart Rate [ Supine] Respiratory 19 20 Rate Blood Pressure 128/85 H Blood Pressure [Activity] Blood Pressure 123/85 H [Right Brachial artery] Blood Pressure [Sitting] Blood Pressure [Standing] Blood Pressure [Supine] O2 Saturation 94 If not protocol 6 6 : Oxygen Flow, liters/minute 12/30/22 12/30/22 12/30/22 00:50 04:55 06:16 Temperature 36.4 C L 36.5 C Heart Rate Heart Rate [ Activity] Heart Rate [ 108 H 133 H 103 H Brachial] Heart Rate [ Sitting] Heart Rate [ Supine] Respiratory 18 22 Rate Blood Pressure Blood Pressure [Activity] Blood Pressure 105/72 114/84 H 114/100 H [Right Brachial artery] Blood Pressure [Sitting] Blood Pressure [Standing] Blood Pressure [Supine] O2 Saturation 91 L 94 If not protocol 6 7 : Oxygen Flow, liters/minute 12/30/22 12/30/22 12/30/22 08:02 08:05 09:05 Temperature 36.3 C L Heart Rate 88 Heart Rate [ Activity] Heart Rate [ Brachial] Heart Rate [ Sitting] Heart Rate [ Supine] Respiratory 20 15 Rate Blood Pressure 113/86 H Blood Pressure [Activity] Blood Pressure 117/86 H [Right Brachial artery] Blood Pressure [Sitting] Blood Pressure [Standing] Blood Pressure [Supine] O2 Saturation 99 If not protocol 7 7 : Oxygen Flow, liters/minute 12/30/22 12/30/22 12/30/22 11:51 12:45 13:19 Temperature 36.3 C L Heart Rate Heart Rate [ Activity] Heart Rate [ 78 125 H Brachial] Heart Rate [ Sitting] Heart Rate [ Supine] Respiratory 18 18 Rate Blood Pressure 102/71 Blood Pressure [Activity] Blood Pressure 102/71 108/74 [Right Brachial artery] Blood Pressure [Sitting] Blood Pressure [Standing] Blood Pressure [Supine] O2 Saturation 92 92 If not protocol 4 4 : Oxygen Flow, liters/minute 12/30/22 13:56 Temperature Heart Rate 88 Heart Rate [ Activity] Heart Rate [ Brachial] Heart Rate [ Sitting] Heart Rate [ Supine] Respiratory 20 Rate Blood Pressure Blood Pressure [Activity] Blood Pressure [Right Brachial artery] Blood Pressure [Sitting] Blood Pressure [Standing] Blood Pressure [Supine] O2 Saturation If not protocol 4 : Oxygen Flow, liters/minute Oxygen O2 Source [With Activity] Nasal cannula O2 Source Oxymizer I&O (Last 24 Hrs): Intake and Output Totals x24h 12/28/22 12/29/22 12/30/22 23:59 23:59 23:59 Intake Total 2673.417 3192.034 590 Output Total 1675 200 725 Balance 618.621 8433.034 -135 General: Alert, Oriented x3 HEENT: Mucous membr. moist/pink, Other (LAzy eye) Neck: Supple Neuro: Alert, Non Focal Cardiovascular: Other (Heart sounds are not audible due to his COPD, increased AP diameter and scattered wheezes) Respiratory: Wheezes, Rhonchi (Right posterior), Other (Increased AP diameter) Abdomen: Normal bowel sounds, Soft Extremities: Other (3+ edema to below the knees. Venous stasis changes of both shins) - Results Results: Laboratory Results WBC 15.9 x10^3/uL (4.8-10.8) H 12/29/22 04:16 RBC 3.97 10^6/uL (4.70-6.10) L 12/29/22 04:16 Hgb 12.3 g/dL (14.0-18.0) L 12/29/22 04:16 Hct 38.1 % (42.0-52.0) L 12/29/22 04:16 MCV 96.0 fL (80.0-94.0) H 12/29/22 04:16 MCH 31.0 pg (27.0-31.0) 12/29/22 04:16 MCHC 32.3 g/dL (32.0-36.0) 12/29/22 04:16 RDW 14.8 % (12.0-15.0) 12/29/22 04:16 Plt Count 157 10^3/uL (130-450) 12/29/22 04:16 MPV 10.6 fL (7.4-11.4) 12/29/22 04:16 Neut # (Auto) 14.8 10^3/uL (1.5-6.6) H 12/29/22 04:16 Lymph # (Auto) 0.5 10^3/uL (1.5-3.5) L 12/29/22 04:16 [place] # (Auto) 0.4 10^3/uL (0.0-1.0) 12/29/22 04:16 Eos # (Auto) 0.0 10^3/uL (0.0-0.7) 12/29/22 04:16 Baso # (Auto) 0.0 10^3/uL (0.0-0.1) 12/29/22 04:16 Absolute Nucleated RBC 0.00 x10^3/uL 12/29/22 04:16 Nucleated RBC % 0.0 /100WBC 12/29/22 04:16 PT 13.5 secs (9.9-12.6) H 12/27/22 16:28 INR 1.2 (0.8-1.2) 12/27/22 16:28 Bld Gas Analysis Time 08:20 12/28/22 08:20 Sample Site LEFT RADIAL 12/28/22 08:20 ABG pH 7.45 (7.35-7.45) 12/28/22 08:20 ABG pCO2 38 mmHg (34-45) 12/28/22 08:20 ABG pO2 77 mmHg (80-100) L 12/28/22 08:20 ABG HCO3 25.9 mmol/L (22.0-26.0) 12/28/22 08:20 ABG Total CO2 27.1 MMOL/L (21.0-29.0) 12/28/22 08:20 ABG O2 Saturation 95 % (94-98) 12/28/22 08:20 ABG Base Excess 2.0 mmol/L (-2.0-3.0) 12/28/22 08:20 Sathish Test POSITIVE 12/28/22 08:20 VBG pH 7.469 (7.31-7.41) H 12/28/22 04:30 Ionized Calcium 1.10 mmol/L (1.15-1.33) L 12/28/22 04:30 O2 Delivery Device BiPAP 12/28/22 08:20 FiO2 35.00 12/28/22 08:20 PEEP 5 cmH2O 12/28/22 08:20 EPAP 5 cmH2O 12/27/22 18:07 IPAP 10 cmH2O 12/28/22 08:20 Sodium 140 mmol/L (135-145) 12/29/22 04:16 Potassium 4.3 mmol/L (3.5-5.0) 12/29/22 04:16 Chloride 106 mmol/L (101-111) 12/29/22 04:16 Carbon Dioxide 24 mmol/L (21-32) 12/29/22 04:16 Anion Gap 10.0 (6-13) 12/29/22 04:16 BUN 41 mg/dL (6-20) H 12/29/22 04:16 Creatinine 1.3 mg/dL (0.6-1.2) H 12/29/22 04:16 Estimated GFR (MDRD) 53 (>89) L 12/29/22 04:16 Glucose 185 mg/dL (70-100) H 12/29/22 04:16 Lactic Acid 2.0 mmol/L (0.5-2.2) 12/27/22 16:28 Calcium 8.8 mg/dL (8.5-10.3) 12/29/22 04:16 Phosphorus 3.6 mg/dL (2.5-4.6) 12/28/22 04:30 Magnesium 2.3 mg/dL (1.7-2.8) 12/28/22 18:09 Total Bilirubin 1.5 mg/dL (0.2-1.0) H 12/27/22 16:28 AST 35 IU/L (10-42) 12/27/22 16:28 ALT 38 IU/L (10-60) 12/27/22 16:28 Alkaline Phosphatase 87 IU/L (42-121) 12/27/22 16:28 Troponin I High Sens 15.0 ng/L (2.3-19.7) 12/27/22 20:30 B-Natriuretic Peptide 206 pg/mL (5-100) H 12/27/22 16:28 Total Protein 7.2 g/dL (6.7-8.2) 12/27/22 16:28 Albumin 4.1 g/dL (3.2-5.5) 12/27/22 16:28 Globulin 3.1 g/dL (2.1-4.2) 12/27/22 16:28 Albumin/Globulin Ratio 1.3 (1.0-2.2) 12/27/22 16:28 Lipase 29 U/L (22-51) 12/27/22 16:28 Nasal Adenovirus (PCR) NOT DETECTED 12/27/22 18:00 Nasal B. parapertussis DNA (PCR) NOT DETECTED 12/27/22 18:00 Nasal Coronavir 229E PCR NOT DETECTED 12/27/22 18:00 Nasal Coronavir HKU1 PCR NOT DETECTED 12/27/22 18:00 Nasal Coronavir NL63 PCR NOT DETECTED 12/27/22 18:00 Nasal Coronavir OC43 PCR NOT DETECTED 12/27/22 18:00 Nasal Enterovir/Rhinovir PCR NOT DETECTED 12/27/22 18:00 Nasal Influenza B PCR NOT DETECTED 12/27/22 18:00 Nasal Influenza A PCR NOT DETECTED 12/27/22 18:00 Nasal Parainfluen 1 PCR NOT DETECTED 12/27/22 18:00 Nasal Parainfluen 2 PCR NOT DETECTED 12/27/22 18:00 Nasal Parainfluen 3 PCR NOT DETECTED 12/27/22 18:00 Nasal Parainfluen 4 PCR NOT DETECTED 12/27/22 18:00 Nasal RSV (PCR) NOT DETECTED 12/27/22 18:00 Nasal Screen MRSA (PCR) NEGATIVE (NEGATIVE) 12/27/22 21:15 Nasal B.pertussis DNA PCR NOT DETECTED 12/27/22 18:00 Nasal C.pneumoniae (PCR) NOT DETECTED 12/27/22 18:00 Tarun Human Metapneumo PCR NOT DETECTED 12/27/22 18:00 Nasal M.pneumoniae (PCR) NOT DETECTED 12/27/22 18:00 Nasal SARS-CoV-2 (PCR) NOT DETECTED 12/27/22 18:00 Ethyl Alcohol < 5.0 mg/dL 12/27/22 16:28
[2022-12-30] MEDS ORDERED: FUROSEMIDE 20 MG TABLET PO STA (14:46)
[2022-12-30] MEDS ORDERED: BENZONATATE 100 MG CAPSULE PO PRN (15:00)
[2022-12-30] MEDS: methylPREDNISolone SUCCINATE 40 MG/ML VIAL IVP SCH ×3 (15:34→20:39)
[2022-12-31] MEDS ORDERED: diltiaZEM INJ 5 MG/ML VIAL IVP ONE (01:49)
[2022-12-31 05:29] LABS: BASOPHILS % (AUTO) 0.1 %; HCT - HEMATOCRIT 38.6 % (42.0-52.0); HGB - HEMOGLOBIN 12.2 g/dL (14.0-18.0); LYMPHOCYTES # (AUTO) 0.3 10^3/uL (1.5-3.5); LYMPHOCYTES % (AUTO) 2.7 %; MEAN CORPUSCULAR HEMOGLOBIN 30.4 pg (27.0-31.0); MEAN CORPUSCULAR HGB CONC 31.6 g/dL (32.0-36.0); MEAN CORPUSCULAR VOLUME 96.3 fL (80.0-94.0); MEAN PLATELET VOLUME 10.1 fL (7.4-11.4); MONOCYTES # (AUTO) 0.3 10^3/uL (0.0-1.0); MONOCYTES % (AUTO) 3.1 %; NEUTROPHILS # (AUTO) 9.1 10^3/uL (1.5-6.6); NEUTROPHILS % (AUTO) 93.5 %; PLT - PLATELET COUNT 157 10^3/uL (130-450); RED BLOOD COUNT 4.01 10^6/uL (4.70-6.10); RED CELL DISTRIBUTION WIDTH 14.4 % (12.0-15.0); WHITE BLOOD COUNT 9.8 x10^3/uL (4.8-10.8)
[2022-12-31 05:40] LABS: CALCIUM 8.9 mg/dL (8.5-10.3); CREATININE 0.8 mg/dL (0.6-1.2); MAGNESIUM 2.3 mg/dL (1.7-2.8); POTASSIUM 4.1 mmol/L (3.5-5.0)
[2022-12-31] MEDS: SODIUM CHLORIDE FLUSH 0.9% 10 ML SYRINGE IVP SCH ×3 (07:56→21:01)
[2022-12-31] MEDS: buPROPion SR 150 MG TABLET PO SCH ×2 (08:34→21:01)
[2022-12-31] MEDS: THIAMINE 100 MG TABLET PO SCH (08:34)
[2022-12-31] MEDS: cefTRIAXone 1 GM in SODIUM CHLORIDE 0.9% MINIBAG 100 ML IV SCH (08:34)
[2022-12-31] MEDS: FUROSEMIDE 20 MG TABLET PO SCH (08:35)
[2022-12-31] MEDS: MULTIVITAMIN W/MINERALS TABLET PO SCH (08:35)
[2022-12-31] MEDS: DIGOXIN 125 MCG TABLET PO SCH (08:35)
[2022-12-31] MEDS: LEVALBUTEROL 1.25 MG/3 ML NEB INH SCH ×3 (08:47→22:23)
[2022-12-31] MEDS: predniSONE 20 MG TABLET PO SCH (09:17)
[2022-12-31] MEDS: ENOXAPARIN 100 MG/ML SYRINGE SUBQ SCH ×2 (09:17→21:01)
--- NOTE | 2022-12-31 10:47 | PROVIDER PROGRESS NOTE ---
Assessment/Plan - Problem List (1) Acute and chronic respiratory failure with hypoxia Assessment/Plan: This gentleman with COPD is on home oxygen: set at 4 L at rest and during sleep and 7 L with activity. He was admitted to the ICU because he needed BiPAP. Also treatment was started for his COPD exacerbation and his pneumonia When he did not need the BiPAP , and was switched to HHF n.c. suppl O2, he was moved out of the ICU Plan: Cont supplemental O2 weaning down as possible, with target satur 88% or higher in a COPDer Continue to treat the underlying COPD and pneumonia. I have discussed quitting smoking with this man On the day of discharge, he will need an oximetry walk test to see if he needs a change in his home oxygen order 2) COPD exacerbation This was likely caused by the pneumonia. He was put on DuoNebs, IV Solu-Medrol and the empiric antibiotics and supplemental O2 With his DuoNeb, he has had recurrence of rapid heart rates but his overall pulmonary status is better. He is on a High Flow n.c. suppl O2. Plan: Cont supplemental O2 weaning down as possible, with target satur 88% or higher in a COPDer Continue Xopenex 3 times daily Will stop IV Solu-Medrol and begin Prednisone 20 mg daily. Plan a very slow taper of steroids for this man, to continue after discharge over 6 weeks PT and OT may continue to work with him 3) CAP Plan: Continue with empiric iv antibiotics Await sputum and blood culture results to tailor antibiotics Continue Mucinex 4) Atrial fib with RVR He presented in A-fib with RVR, needed IV Cardizem drip while in the ICU. This was weaned to off on new po meds and he was transferred out of the ICU. His TSH came back low so I checked a free T4 and it is within normal limits. He therefore has "sick euthyroid syndrome". I suspect the new onset of atrial fib-flutter is from his severe COPD He was on no HR-slowing medications at home, as per the medication list reconciled by pharmacy, and I double checked with him today. Therefore we started Cardizem orally. He is now in [id number] at rates between 70 and still goes as high as 130, which sustains, and rises quickly when he walks. I reviewed his telemetry today. He has needed extra Cardizem IV pushes, ordered by the telemedicine doctor. Because of a "soft" blood pressure, he was only on Cardizem twice a day oral, increased to TID yesterday. Yesterday he also got digoxin 125 mcg IV x1 Plan: Digoxin 125 mcg p.o. daily to be started today, given his "soft" BPs, in order to achieve rate control. Will check a Dig level tomorrow, avoid toxic range Cont the increased oral Cardizem from twice daily to 3 times daily, since blood pressure is allowing The patient is currently on therapeutic doses of heparin subcu. We will try to adjust this to a DOAC, depending on the patient's request, since he was on no anticoagulant at home, for unknown reason. 5) Cor Pulmonale The Echo done here shows a very dilated RV and very poor RV function. This patient's leg edema with venous stasis confirmed that he has had longstanding right heart failure. His Lasix was not given for a day because his creatinine tyree (all labs were reviewed). Plan: Continue his oral Lasix, since leg edema was nearly up to his knees. The Lasix may be adding to his dropping blood pressure therefore the digoxin will be sta rted for the A-fib. This patient with cor pulmonale, like all patients with cor pulmonale, have a very narrow range of perfect fluid balance; if they are dehydrated the blood pressure will drop, if they are volume overloaded they will get significant leg edema 6) Chronic systolic heart failure The patient is not in CHF (Left heart failure) exacerbation Plan: We have resumed his usual cardiac meds. I double checked with the patient he if he was ever told he had a weak heart and he claims he never did. We will request outside records 7) Alcohol dependence with withdrawal Patient described high alcohol use at admission. He was started on a CIWA protocol. He is not scoring high on the CIWA protocol. Schedule doses of Librium was not needed Plan: Continue with CIWA protocol Continue with the daily oral Thiamine order Continue daily vitamin PT has recommended that he go to SNF for rehab. The patient stated today that he wants to go home and would like to go to outpatient rehab. I discussed this with [employer] Supervisor Hannah, pointing out that he might prefer to be going home to get back to alcohol abuse. - Current Meds Current Meds: Current Medications Generic Name Dose Route Start Last Admin Trade Name Jebq PRN Reason Stop Dose Admin Benzonatate 200 mg 12/30/22 15:00 12/30/22 15:10 Benzonatate 100 Mg Capsule PO 200 mg Q8HR PRN Administration Cough Bupropion HCl 150 mg 12/28/22 21:00 12/31/22 08:34 Bupropion Sr 150 Mg Tablet PO 150 mg BID EDEL Administration Digoxin 125 mcg 12/31/22 09:00 12/31/22 08:35 Digoxin 125 Mcg Tablet PO 125 mcg DAILY EDEL Administration Diltiazem HCl 60 mg 12/30/22 12:00 12/31/22 07:55 Diltiazem 60 Mg Tablet PO 60 mg TIDWM EDEL Administration Enoxaparin Sodium 90 mg 12/27/22 21:00 12/31/22 09:17 Enoxaparin 100 Mg/Ml Syringe SUBQ 90 mg Q12H EDEL Administration Furosemide 20 mg 12/31/22 09:00 12/31/22 08:35 Furosemide 20 Mg Tablet PO 20 mg DAILY EDEL Administration Ceftriaxone Sodium 1 gm/ 100 mls @ 200 mls/hr 12/28/22 09:00 12/31/22 09:04 Sodium Chloride IV Infused DAILY EDEL Infusion Levalbuterol HCl 1.25 mg 12/29/22 14:25 12/31/22 08:47 Levalbuterol 1.25 Mg/3 Ml Neb INH 1.25 mg TID EDEL Administration Lorazepam 1 mg 12/27/22 20:28 12/27/22 21:10 Lorazepam 2 Mg/Ml Vial IVP 1 mg Q6H PRN Administration Anxiety Multivitamins/Minerals 1 tab 12/31/22 08:00 12/31/22 08:35 Multivitamin W/Minerals Tablet PO 1 tab DAILYWM EDEL Administration Prednisone 20 mg 12/31/22 09:00 12/31/22 09:17 Prednisone 20 Mg Tablet PO 20 mg DAILYWM EDEL Administration Sodium Chloride 10 ml 12/28/22 01:00 12/31/22 07:56 Sodium Chloride Flush 0.9% 10 Ml Syringe IVP 10 ml 0100,0900,1700 EDEL Administration Sodium Chloride 10 ml 12/27/22 19:58 12/28/22 14:34 Sodium Chloride Flush 0.9% 10 Ml Syringe IVP 10 ml PRN PRN Administration NEEDED PER PROVIDER ORDERS Thiamine HCl 100 mg 12/29/22 09:00 12/31/22 08:34 Thiamine 100 Mg Tablet PO 100 mg DAILY EDEL Administration - Lab Result Fish Bone Diagrams: 12/31/22 05:09 12/31/22 05:09 - Additional Planning My Orders: My Active Orders 12/30/22 Lunch DIET [Soft Mechanical Diet] [DIET] 12/30/22 12:00 diltiaZEM [Cardizem] 60 mg PO TIDWM 12/30/22 15:00 Benzonatate [Tessalon] 200 mg PO Q8HR PRN 12/31/22 08:00 Multivitamin W/Minerals [Theragran M] 1 tab PO DAILYWM 12/31/22 09:00 Digoxin [Lanoxin] 125 mcg PO DAILY Furosemide [Lasix] 20 mg PO DAILY polyethylene glycoL 3350 [Miralax] 17 gm PO DAILY predniSONE [Deltasone] 20 mg PO DAILYWM 01/01/23 05:00 BMP - BASIC METABOLIC PANEL [CHEM] DAILYLAB CBC - COMP BLD CT W/AUTO DIFF [HEME] DAILYLAB DIGOXIN [CHEM] DAILYLAB MAGNESIUM [CHEM] DAILYLAB Subjective - Subjective Patient Reports: Shortness of Breath, Other (Patient said he is motivated to get home: He wants to exercise in his room in order to be able to go home sooner.) Nursing Reports: Other (X-rayPT reported patients with walking, down to 75% despite being on supplemental O2.) Objective Vital Signs: Vital Signs - 24 hr 12/30/22 12/30/22 12/30/22 11:51 12:45 13:19 Temperature 36.3 C L Heart Rate Heart Rate [ Apical] Heart Rate [ 78 125 H Brachial] Heart Rate [ Monitoring electrodes] Respiratory 18 18 Rate Blood Pressure 102/71 Blood Pressure 102/71 108/74 [Right Brachial artery] O2 Saturation 92 92 If not protocol 4 4 : Oxygen Flow, liters/minute 12/30/22 12/30/22 12/30/22 13:56 14:56 15:00 Temperature Heart Rate 88 120 H Heart Rate [ 120 H Apical] Heart Rate [ Brachial] Heart Rate [ Monitoring electrodes] Respiratory 20 20 Rate Blood Pressure Blood Pressure 114/76 [Right Brachial artery] O2 Saturation 92 If not protocol 4 4 : Oxygen Flow, liters/minute 12/30/22 12/30/22 12/30/22 15:05 15:10 15:15 Temperature Heart Rate Heart Rate [ Apical] Heart Rate [ 131 H 131 H 132 H Brachial] Heart Rate [ Monitoring electrodes] Respiratory 20 20 20 Rate Blood Pressure Blood Pressure 108/85 H 116/79 107/73 [Right Brachial artery] O2 Saturation 84 L 95 93 If not protocol 5 5 5 : Oxygen Flow, liters/minute 12/30/22 12/30/22 12/30/22 15:33 16:58 17:00 Temperature Heart Rate Heart Rate [ Apical] Heart Rate [ 61 65 117 H Brachial] Heart Rate [ Monitoring electrodes] Respiratory 20 16 Rate Blood Pressure Blood Pressure 115/80 123/79 [Right Brachial artery] O2 Saturation 97 If not protocol 5 : Oxygen Flow, liters/minute 12/30/22 12/30/22 12/30/22 17:06 18:00 18:19 Temperature 36.2 C L Heart Rate Heart Rate [ Apical] Heart Rate [ Brachial] Heart Rate [ 93 Monitoring electrodes] Respiratory Rate Blood Pressure 123/79 Blood Pressure [Right Brachial artery] O2 Saturation If not protocol : Oxygen Flow, liters/minute 12/30/22 12/30/22 12/31/22 20:47 22:45 02:00 Temperature 36.3 C L 36.3 C L Heart Rate 68 Heart Rate [ Apical] Heart Rate [ 78 106 H Brachial] Heart Rate [ Monitoring electrodes] Respiratory 18 20 18 Rate Blood Pressure Blood Pressure 116/62 106/68 [Right Brachial artery] O2 Saturation 96 96 If not protocol 4 : Oxygen Flow, liters/minute 12/31/22 12/31/22 12/31/22 02:10 02:18 05:00 Temperature 36.3 C L Heart Rate Heart Rate [ Apical] Heart Rate [ 132 H Brachial] Heart Rate [ 88 89 91 Monitoring electrodes] Respiratory 18 Rate Blood Pressure Blood Pressure 123/90 H [Right Brachial artery] O2 Saturation 94 If not protocol : Oxygen Flow, liters/minute 12/31/22 12/31/22 12/31/22 05:35 07:30 07:55 Temperature 36.5 C Heart Rate Heart Rate [ Apical] Heart Rate [ Brachial] Heart Rate [ 108 H 134 H Monitoring electrodes] Respiratory 24 Rate Blood Pressure 122/83 H Blood Pressure 122/83 H [Right Brachial artery] O2 Saturation 92 If not protocol : Oxygen Flow, liters/minute 12/31/22 12/31/22 12/31/22 08:49 08:59 09:18 Temperature Heart Rate 133 H Heart Rate [ Apical] Heart Rate [ Brachial] Heart Rate [ 125 H 114 H Monitoring electrodes] Respiratory 16 Rate Blood Pressure Blood Pressure [Right Brachial artery] O2 Saturation If not protocol 5 : Oxygen Flow, liters/minute 12/31/22 10:31 Temperature Heart Rate Heart Rate [ Apical] Heart Rate [ Brachial] Heart Rate [ Monitoring electrodes] Respiratory Rate Blood Pressure Blood Pressure [Right Brachial artery] O2 Saturation 92 If not protocol : Oxygen Flow, liters/minute Oxygen O2 Source [With Activity] Nasal cannula O2 Source Oxymizer I&O (Last 24 Hrs): Intake and Output Totals x24h 12/29/22 12/30/22 12/31/22 23:59 23:59 23:59 Intake Total 3192.034 1370 640 Output Total 200 1325 875 Balance 2992.034 45 -235 General: Alert, Oriented x3 HEENT: Mucous membr. moist/pink, Other (Wearing HH F NC. 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 Venous stasis changes present also) - Results Results: Laboratory Results WBC 9.8 x10^3/uL (4.8-10.8) 12/31/22 05:09 RBC 4.01 10^6/uL (4.70-6.10) L 12/31/22 05:09 Hgb 12.2 g/dL (14.0-18.0) L 12/31/22 05:09 Hct 38.6 % (42.0-52.0) L 12/31/22 05:09 MCV 96.3 fL (80.0-94.0) H 12/31/22 05:09 MCH 30.4 pg (27.0-31.0) 12/31/22 05:09 MCHC 31.6 g/dL (32.0-36.0) L 12/31/22 05:09 RDW 14.4 % (12.0-15.0) 12/31/22 05:09 Plt Count 157 10^3/uL (130-450) 12/31/22 05:09 MPV 10.1 fL (7.4-11.4) 12/31/22 05:09 Neut # (Auto) 9.1 10^3/uL (1.5-6.6) H 12/31/22 05:09 Lymph # (Auto) 0.3 10^3/uL (1.5-3.5) L 12/31/22 05:09 [place] # (Auto) 0.3 10^3/uL (0.0-1.0) 12/31/22 05:09 Eos # (Auto) 0.0 10^3/uL (0.0-0.7) 12/31/22 05:09 Baso # (Auto) 0.0 10^3/uL (0.0-0.1) 12/31/22 05:09 Absolute Nucleated RBC 0.00 x10^3/uL 12/31/22 05:09 Nucleated RBC % 0.0 /100WBC 12/31/22 05:09 PT 13.5 secs (9.9-12.6) H 12/27/22 16:28 INR 1.2 (0.8-1.2) 12/27/22 16:28 Bld Gas Analysis Time 08:20 12/28/22 08:20 Sample Site LEFT RADIAL 12/28/22 08:20 ABG pH 7.45 (7.35-7.45) 12/28/22 08:20 ABG pCO2 38 mmHg (34-45) 12/28/22 08:20 ABG pO2 77 mmHg (80-100) L 12/28/22 08:20 ABG HCO3 25.9 mmol/L (22.0-26.0) 12/28/22 08:20 ABG Total CO2 27.1 MMOL/L (21.0-29.0) 12/28/22 08:20 ABG O2 Saturation 95 % (94-98) 12/28/22 08:20 ABG Base Excess 2.0 mmol/L (-2.0-3.0) 12/28/22 08:20 Sathish Test POSITIVE 12/28/22 08:20 VBG pH 7.469 (7.31-7.41) H 12/28/22 04:30 Ionized Calcium 1.10 mmol/L (1.15-1.33) L 12/28/22 04:30 O2 Delivery Device BiPAP 12/28/22 08:20 FiO2 35.00 12/28/22 08:20 PEEP 5 cmH2O 12/28/22 08:20 EPAP 5 cmH2O 12/27/22 18:07 IPAP 10 cmH2O 12/28/22 08:20 Sodium 141 mmol/L (135-145) 12/31/22 05:09 Potassium 4.1 mmol/L (3.5-5.0) 12/31/22 05:09 Chloride 107 mmol/L (101-111) 12/31/22 05:09 Carbon Dioxide 27 mmol/L (21-32) 12/31/22 05:09 Anion Gap 7.0 (6-13) 12/31/22 05:09 BUN 33 mg/dL (6-20) H 12/31/22 05:09 Creatinine 0.8 mg/dL (0.6-1.2) 12/31/22 05:09 Estimated GFR (MDRD) 93 (>89) 12/31/22 05:09 Glucose 159 mg/dL (70-100) H 12/31/22 05:09 Lactic Acid 2.0 mmol/L (0.5-2.2) 12/27/22 16:28 Calcium 8.9 mg/dL (8.5-10.3) 12/31/22 05:09 Phosphorus 3.6 mg/dL (2.5-4.6) 12/28/22 04:30 Magnesium 2.3 mg/dL (1.7-2.8) 12/31/22 05:09 Total Bilirubin 1.5 mg/dL (0.2-1.0) H 12/27/22 16:28 AST 35 IU/L (10-42) 12/27/22 16:28 ALT 38 IU/L (10-60) 12/27/22 16:28 Alkaline Phosphatase 87 IU/L (42-121) 12/27/22 16:28 Troponin I High Sens 15.0 ng/L (2.3-19.7) 12/27/22 20:30 B-Natriuretic Peptide 206 pg/mL (5-100) H 12/27/22 16:28 Total Protein 7.2 g/dL (6.7-8.2) 12/27/22 16:28 Albumin 4.1 g/dL (3.2-5.5) 12/27/22 16:28 Globulin 3.1 g/dL (2.1-4.2) 12/27/22 16:28 Albumin/Globulin Ratio 1.3 (1.0-2.2) 12/27/22 16:28 Lipase 29 U/L (22-51) 12/27/22 16:28 TSH 0.10 uIU/mL (0.34-5.60) L 12/31/22 05:09 Free T4 0.93 ng/dL (0.58-1.64) 12/31/22 05:09 Nasal Adenovirus (PCR) NOT DETECTED 12/27/22 18:00 Nasal B. parapertussis DNA (PCR) NOT DETECTED 12/27/22 18:00 Nasal Coronavir 229E PCR NOT DETECTED 12/27/22 18:00 Nasal Coronavir HKU1 PCR NOT DETECTED 12/27/22 18:00 Nasal Coronavir NL63 PCR NOT DETECTED 12/27/22 18:00 Nasal Coronavir OC43 PCR NOT DETECTED 12/27/22 18:00 Nasal Enterovir/Rhinovir PCR NOT DETECTED 12/27/22 18:00 Nasal Influenza B PCR NOT DETECTED 12/27/22 18:00 Nasal Influenza A PCR NOT DETECTED 12/27/22 18:00 Nasal Parainfluen 1 PCR NOT DETECTED 12/27/22 18:00 Nasal Parainfluen 2 PCR NOT DETECTED 12/27/22 18:00 Nasal Parainfluen 3 PCR NOT DETECTED 12/27/22 18:00 Nasal Parainfluen 4 PCR NOT DETECTED 12/27/22 18:00 Nasal RSV (PCR) NOT DETECTED 12/27/22 18:00 Nasal Screen MRSA (PCR) NEGATIVE (NEGATIVE) 12/27/22 21:15 Nasal B.pertussis DNA PCR NOT DETECTED 12/27/22 18:00 Nasal C.pneumoniae (PCR) NOT DETECTED 12/27/22 18:00 Tarun Human Metapneumo PCR NOT DETECTED 12/27/22 18:00 Nasal M.pneumoniae (PCR) NOT DETECTED 05/02/23 18:00 Nasal SARS-CoV-2 (PCR) NOT DETECTED 12/27/22 18:00 Ethyl Alcohol < 5.0 mg/dL 12/27/22 16:28
[2022-12-31] MEDS: polyethylene glycoL 3350 17 GM PACKET PO SCH (13:21)
[2022-12-31 14:00] LABS: CALCIUM 9.2 mg/dL (8.5-10.3); MAGNESIUM 2.3 mg/dL (1.7-2.8); POTASSIUM 4.2 mmol/L (3.5-5.0)
[2023-01-01 04:51] LABS: BASOPHILS % (AUTO) 0.1 %; HCT - HEMATOCRIT 39.2 % (42.0-52.0); HGB - HEMOGLOBIN 12.6 g/dL (14.0-18.0); LYMPHOCYTES # (AUTO) 0.6 10^3/uL (1.5-3.5); LYMPHOCYTES % (AUTO) 5.7 %; MEAN CORPUSCULAR HEMOGLOBIN 30.6 pg (27.0-31.0); MEAN CORPUSCULAR HGB CONC 32.1 g/dL (32.0-36.0); MEAN CORPUSCULAR VOLUME 95.1 fL (80.0-94.0); MEAN PLATELET VOLUME 9.7 fL (7.4-11.4); MONOCYTES # (AUTO) 0.7 10^3/uL (0.0-1.0); MONOCYTES % (AUTO) 6.8 %; NEUTROPHILS # (AUTO) 8.4 10^3/uL (1.5-6.6); NEUTROPHILS % (AUTO) 86.5 %; PLT - PLATELET COUNT 149 10^3/uL (130-450); RED BLOOD COUNT 4.12 10^6/uL (4.70-6.10); WHITE BLOOD COUNT 9.7 x10^3/uL (4.8-10.8)
[2023-01-01 05:06] LABS: BUN - BLOOD UREA NITROGEN 25 mg/dL (6-20); CALCIUM 8.8 mg/dL (8.5-10.3); CARBON DIOXIDE - CO2 31 mmol/L (21-32); CHLORIDE 104 mmol/L (101-111); CREATININE 0.7 mg/dL (0.6-1.2); DIGOXIN 0.5 ng/mL; GFR - MDRD 109 (>89); GLUCOSE 118 mg/dL (70-100); MAGNESIUM 2.3 mg/dL (1.7-2.8); POTASSIUM 4.3 mmol/L (3.5-5.0); SODIUM 140 mmol/L (135-145)
[2023-01-01] MEDS: LEVALBUTEROL 1.25 MG/3 ML NEB INH SCH ×5 (06:19→21:00)
[2023-01-01] MEDS: FUROSEMIDE 20 MG TABLET PO SCH (09:17)
[2023-01-01] MEDS: buPROPion SR 150 MG TABLET PO SCH ×2 (09:17→20:49)
[2023-01-01] MEDS: predniSONE 20 MG TABLET PO SCH (09:18)
[2023-01-01] MEDS: MULTIVITAMIN W/MINERALS TABLET PO SCH (09:18)
[2023-01-01] MEDS: THIAMINE 100 MG TABLET PO SCH (09:18)
[2023-01-01] MEDS: polyethylene glycoL 3350 17 GM PACKET PO SCH (09:18)
[2023-01-01] MEDS: ENOXAPARIN 100 MG/ML SYRINGE SUBQ SCH (09:18)
[2023-01-01] MEDS: SODIUM CHLORIDE FLUSH 0.9% 10 ML SYRINGE IVP SCH ×3 (09:19→20:54)
[2023-01-01] MEDS: cefTRIAXone 1 GM in SODIUM CHLORIDE 0.9% MINIBAG 100 ML IV SCH (09:23)
[2023-01-01] MEDS: DIGOXIN 125 MCG TABLET PO SCH (09:32)
[2023-01-01] MEDS ORDERED: DIGOXIN 500 MCG/2 ML AMP IVP ONE (10:23)
--- NOTE | 2023-01-01 11:11 | PROVIDER PROGRESS NOTE ---
Assessment/Plan - Problem List (1) Atrial flutter with rapid ventricular response Assessment/Plan: He presented in [id number] with [facility], needed IV Cardizem drip while in the ICU. This was weaned to off on new po Cardizem and he was transferred out of the ICU. His TSH came back low so I checked a free T4 and it is within normal limits. He therefore has "sick euthyroid syndrome". I suspect the new onset of atrial fib- flutter is from his severe COPD I reviewed his telemetry strips today. His lowest heart rate is about 65, he has many sudden increases of heart rates to 130-135 and he sustains there for an hour or more. He has needed extra Cardizem IV pushes, ordered by the telemedicine night doctor. Because he runs "soft" BP's, it is hard to increase his po Cardizem dose, so he has gotten Digoxin 125 mcg IV x1 (on 12/30) and Digoxin 125 mcg p.o. daily was started (12/31). All labs were reviewed reviewed, and today his Dig level was not measurable, it is not toxic. Yesterday, with the at bedside, I had a long discussion with him about why he chooses not to use Eliquis. I described the benefits and the risks. He declines to use an anticoagulant and wants to stay on aspirin daily as his str robert prophylaxis Plan: We will give IV Digoxin 250 mcg today x1, for HR control Check a dig level in the morning Cont the increased oral Cardizem from twice daily to 3 times daily, since blood pressure is allowing The patient is currently on therapeutic doses of Lovenox subcu. Since he has declined to resume Eliquis or an anticoagulant, and he wants to stay on aspirin daily, we will stop the therapeutic subcu Lovenox doses. (2) Ventricular bigeminy This was seen on 12/31 and is new for him. On 12/31 I checked for electrolyte abnormalities related to getting Lasix, and a troponin, and they were normal. Therefore I suspect it was from his cor pulmonale or from hypoxia. Plan: Remain on telemetry Follow BMP daily We will check magnesium, calcium intermittently (3) Acute and chronic respiratory failure with hypoxia Assessment/Plan: This gentleman with COPD is on home oxygen: set at 4 L at rest and during sleep and 7 L with activity. He was admitted to the ICU because he needed BiPAP. Also treatment was started for his COPD exacerbation and his pneumonia. When he did not need the BiPAP and was switched to HHF n.c. suppl O2, he was moved out of the ICU Plan: Cont supplemental O2 weaning down as possible, with target satur 88% or higher in a COPDer Continue to treat the underlying COPD and pneumonia. I have discussed quitting smoking with this man On the day of discharge, he will need an oximetry walk test to see if he needs a change in his home oxygen order (4) COPD exacerbation This was likely caused by the pneumonia. He was put on DuoNebs, IV Solu-Medrol and the empiric antibiotics and supplemental O2 With his DuoNeb, he has had recurrence of rapid heart rates but his overall pulmonary status is better. He is on a High Flow n.c. suppl O2. Plan: Cont supplemental O2 weaning down as possible, with target satur 88% or higher in a COPDer Continue Xopenex 3 times daily I stopped IV Solu-Medrol and began him on Prednisone 20 mg daily. Plan a very slow taper of steroids for this man, to continue after discharge over 6 weeks PT and OT may continue to work with him (5) CAP He made no sputum to send for culture and blood culture are neg to date (all labs were reviewed) Plan: Continue with empiric iv antibiotics, he has completed Zithromax and is on iv Ceftriaxone Continue Mucinex (6) Cor Pulmonale The Echo done here shows a very dilated RV and very poor RV function. This patient's leg edema with venous stasis confirmed that he has had longstanding right heart failure. His Lasix was not given for a day because his creatinine tyree (all labs were reviewed). Plan: Continue his oral Lasix, since leg edema was nearly up to his knees. The Lasix may be adding to his dropping blood pressure therefore the digoxin will be started for the A-fib. This patient with cor pulmonale, like all patients with cor pulmonale, have a very narrow range of perfect fluid balance; if they are dehydrated the blood pressure will drop, if they are volume overloaded they will get significant leg edema (7) Chronic systolic heart failure The Echo done here shows LVEF 40 to 50%. The patient is not in CHF (Left heart failure) exacerbation I double checked with the patient and his if he was ever told he had a weak heart and he claims he never did. He may have systolic failure from poorly controlled rapid heart rate and his a flutter Plan: We have resumed his usual cardiac med, which was only Lasix. Currently his blood pressure would not tolerate an JOANA inhibitor, or Spironolactone (8) Alcohol dependence with withdrawal The withdrawal has resolved Patient described high alcohol use at admission. He was started on a CIWA protocol. He is not scoring high on the CIWA protocol. Schedule doses of Librium was not needed. Yesterday 12/31 I got details from the at bedside, about his alcohol use: He binge drinks up to 10-15 whiskey a day, about twice a week Plan: Continue with the daily oral Thiamine order Continue daily vitamin PT has recommended that he go to SNF for rehab. The patient stated that he wants to go home and would like to go to outpatient rehab. - Current Meds Current Meds: Current Medications Generic Name Dose Route Start Last Admin Trade Name Karine PRN Reason Stop Dose Admin Benzonatate 200 mg 12/30/22 15:00 12/30/22 15:10 Benzonatate 100 Mg Capsule PO 200 mg Q8HR PRN Administration Cough Bupropion HCl 150 mg 12/28/22 21:00 01/01/23 09:17 Bupropion Sr 150 Mg Tablet PO 150 mg BID EDEL Administration Digoxin 125 mcg 12/31/22 09:00 01/01/23 09:32 Digoxin 125 Mcg Tablet PO 125 mcg DAILY EDEL Administration Diltiazem HCl 60 mg 01/01/23 09:00 01/01/23 09:31 Diltiazem 60 Mg Tablet PO 60 mg QID EDEL Administration Enoxaparin Sodium 90 mg 12/27/22 21:00 01/01/23 09:18 Enoxaparin 100 Mg/Ml Syringe SUBQ 90 mg Q12H EDEL Administration Furosemide 20 mg 12/31/22 09:00 01/01/23 09:17 Furosemide 20 Mg Tablet PO 20 mg DAILY EDEL Administration Ceftriaxone Sodium 1 gm/ 100 mls @ 200 mls/hr 12/28/22 09:00 01/01/23 09:23 Sodium Chloride IV 100 mls/hr DAILY EDEL Administration Levalbuterol HCl 1.25 mg 01/01/23 09:00 01/01/23 09:19 Levalbuterol 1.25 Mg/3 Ml Neb INH 1.25 mg QID EDEL Administration Multivitamins/Minerals 1 tab 12/31/22 08:00 01/01/23 09:18 Multivitamin W/Minerals Tablet PO 1 tab DAILYWM EDEL Administration Polyethylene Glycol 17 gm 12/31/22 09:00 01/01/23 09:18 Polyethylene Glycol 3350 17 Gm Packet PO 17 gm DAILY EDEL Administration Prednisone 20 mg 12/31/22 09:00 01/01/23 09:18 Prednisone 20 Mg Tablet PO 20 mg DAILYWM EDEL Administration Sodium Chloride 10 ml 12/28/22 01:00 01/01/23 09:19 Sodium Chloride Flush 0.9% 10 Ml Syringe IVP 10 ml 0100,0900,1700 EDEL Administration Sodium Chloride 10 ml 12/27/22 19:58 12/28/22 14:34 Sodium Chloride Flush 0.9% 10 Ml Syringe IVP 10 ml PRN PRN Administration NEEDED PER PROVIDER ORDERS Thiamine HCl 100 mg 12/29/22 09:00 01/01/23 09:18 Thiamine 100 Mg Tablet PO 100 mg DAILY EDEL Administration - Lab Result Fish Bone Diagrams: 01/01/23 04:46 01/01/23 04:46 - Additional Planning My Orders: My Active Orders 12/31/22 11:48 Miscellaenous Nursing Order [RC] QSHIFT 01/01/23 09:00 Levalbuterol [Xopenex] 1.25 mg INH QID diltiaZEM [Cardizem] 60 mg PO QID Subjective - Subjective Patient Reports: Feeling Better Objective Vital Signs: Vital Signs - 24 hr 12/31/22 12/31/22 12/31/22 11:45 12:39 12:40 Temperature 36.3 C L Heart Rate Heart Rate [ Brachial] Heart Rate [ 82 115 H Monitoring electrodes] Respiratory 20 Rate Blood Pressure 112/83 H Blood Pressure 119/78 112/83 H [Right Brachial artery] O2 Saturation 92 If not protocol 4 : Oxygen Flow, liters/minute 12/31/22 12/31/22 12/31/22 14:27 16:01 17:30 Temperature 36.4 C L Heart Rate Heart Rate [ 69 Brachial] Heart Rate [ 45 L Monitoring electrodes] Respiratory 21 20 Rate Blood Pressure Blood Pressure 99/64 110/76 [Right Brachial artery] O2 Saturation 92 98 89 L If not protocol 4 4 4 : Oxygen Flow, liters/minute 12/31/22 12/31/22 12/31/22 18:07 18:09 20:56 Temperature 36.3 C L Heart Rate Heart Rate [ 75 Brachial] Heart Rate [ 88 67 Monitoring electrodes] Respiratory 16 Rate Blood Pressure 110/76 Blood Pressure 110/76 111/83 H [Right Brachial artery] O2 Saturation 95 If not protocol 4 : Oxygen Flow, liters/minute 12/31/22 12/31/22 01/01/23 21:00 22:25 00:55 Temperature 36.6 C Heart Rate 76 Heart Rate [ 58 L Brachial] Heart Rate [ 80 Monitoring electrodes] Respiratory 18 16 Rate Blood Pressure Blood Pressure 127/88 H [Right Brachial artery] O2 Saturation 91 L 94 If not protocol 3 3 4 : Oxygen Flow, liters/minute 01/01/23 01/01/23 01/01/23 06:20 06:30 07:31 Temperature 36.6 C 36.3 C L Heart Rate 135 H Heart Rate [ Brachial] Heart Rate [ 69 98 Monitoring electrodes] Respiratory 20 18 20 Rate Blood Pressure Blood Pressure 124/81 H 121/86 H [Right Brachial artery] O2 Saturation 95 98 If not protocol 4 4 4 : Oxygen Flow, liters/minute 01/01/23 09:31 Temperature Heart Rate Heart Rate [ Brachial] Heart Rate [ Monitoring electrodes] Respiratory Rate Blood Pressure 121/86 H Blood Pressure [Right Brachial artery] O2 Saturation If not protocol : Oxygen Flow, liters/minute Oxygen O2 Source [With Activity] Nasal cannula O2 Source Nasal cannula I&O (Last 24 Hrs): Intake and Output Totals x24h 12/30/22 12/31/22 01/01/23 23:59 23:59 23:59 Intake Total 1370 1320 600 Output Total 1325 1300 600 Balance 45 20 0 General: Alert, Oriented x3 HEENT: Mucous membr. moist/pink, Other (Lazy eye on the left) Neck: Supple, No JVD Neuro: Alert, Non Focal Cardiovascular: Other (Tachycardic, distant heart sounds due to COPD) Respiratory: Wheezes, Other (Short of breath with activity, using pursed lip breathing) Abdomen: Normal bowel sounds, Soft, No tenderness Extremities: No clubbing, Other (1+ edema to mid shins) - Results Results: Laboratory Results WBC 9.7 x10^3/uL (4.8-10.8) 01/01/23 04:46 RBC 4.12 10^6/uL (4.70-6.10) L 01/01/23 04:46 Hgb 12.6 g/dL (14.0-18.0) L 01/01/23 04:46 Hct 39.2 % (42.0-52.0) L 01/01/23 04:46 MCV 95.1 fL (80.0-94.0) H 01/01/23 04:46 MCH 30.6 pg (27.0-31.0) 01/01/23 04:46 MCHC 32.1 g/dL (32.0-36.0) 01/01/23 04:46 RDW 14.0 % (12.0-15.0) 01/01/23 04:46 Plt Count 149 10^3/uL (130-450) 01/01/23 04:46 MPV 9.7 fL (7.4-11.4) 01/01/23 04:46 Neut # (Auto) 8.4 10^3/uL (1.5-6.6) H 01/01/23 04:46 Lymph # (Auto) 0.6 10^3/uL (1.5-3.5) L 01/01/23 04:46 [place] # (Auto) 0.7 10^3/uL (0.0-1.0) 01/01/23 04:46 Eos # (Auto) 0.0 10^3/uL (0.0-0.7) 01/01/23 04:46 Baso # (Auto) 0.0 10^3/uL (0.0-0.1) 01/01/23 04:46 Absolute Nucleated RBC 0.00 x10^3/uL 01/01/23 04:46 Nucleated RBC % 0.0 /100WBC 01/01/23 04:46 PT 13.5 secs (9.9-12.6) H 12/27/22 16:28 INR 1.2 (0.8-1.2) 12/27/22 16:28 Bld Gas Analysis Time 08:20 12/28/22 08:20 Sample Site LEFT RADIAL 05/03/23 08:20 ABG pH 7.45 (7.35-7.45) 12/28/22 08:20 ABG pCO2 38 mmHg (34-45) 12/28/22 08:20 ABG pO2 77 mmHg (80-100) L 12/28/22 08:20 ABG HCO3 25.9 mmol/L (22.0-26.0) 12/28/22 08:20 ABG Total CO2 27.1 MMOL/L (21.0-29.0) 12/28/22 08:20 ABG O2 Saturation 95 % (94-98) 12/28/22 08:20 ABG Base Excess 2.0 mmol/L (-2.0-3.0) 12/28/22 08:20 Sathish Test POSITIVE 12/28/22 08:20 VBG pH 7.469 (7.31-7.41) H 12/28/22 04:30 Ionized Calcium 1.10 mmol/L (1.15-1.33) L 12/28/22 04:30 O2 Delivery Device BiPAP 12/28/22 08:20 FiO2 35.00 12/28/22 08:20 PEEP 5 cmH2O 12/28/22 08:20 EPAP 5 cmH2O 12/27/22 18:07 IPAP 10 cmH2O 12/28/22 08:20 Sodium 140 mmol/L (135-145) 01/01/23 04:46 Potassium 4.3 mmol/L (3.5-5.0) 01/01/23 04:46 Chloride 104 mmol/L (101-111) 01/01/23 04:46 Carbon Dioxide 31 mmol/L (21-32) 01/01/23 04:46 Anion Gap 5.0 (6-13) L 01/01/23 04:46 BUN 25 mg/dL (6-20) H 01/01/23 04:46 Creatinine 0.7 mg/dL (0.6-1.2) 01/01/23 04:46 Estimated GFR (MDRD) 109 (>89) 01/01/23 04:46 Glucose 118 mg/dL (70-100) H 01/01/23 04:46 Lactic Acid 2.0 mmol/L (0.5-2.2) 12/27/22 16:28 Calcium 8.8 mg/dL (8.5-10.3) 01/01/23 04:46 Phosphorus 3.6 mg/dL (2.5-4.6) 12/28/22 04:30 Magnesium 2.3 mg/dL (1.7-2.8) 01/01/23 04:46 Total Bilirubin 1.5 mg/dL (0.2-1.0) H 12/27/22 16:28 AST 35 IU/L (10-42) 12/27/22 16:28 ALT 38 IU/L (10-60) 12/27/22 16:28 Alkaline Phosphatase 87 IU/L (42-121) 12/27/22 16:28 Troponin I High Sens 9.8 ng/L (2.3-19.7) 12/31/22 13:42 B-Natriuretic Peptide 206 pg/mL (5-100) H 12/27/22 16:28 Total Protein 7.2 g/dL (6.7-8.2) 12/27/22 16:28 Albumin 4.1 g/dL (3.2-5.5) 12/27/22 16:28 Globulin 3.1 g/dL (2.1-4.2) 12/27/22 16:28 Albumin/Globulin Ratio 1.3 (1.0-2.2) 12/27/22 16:28 Lipase 29 U/L (22-51) 12/27/22 16:28 TSH 0.10 uIU/mL (0.34-5.60) L 12/31/22 05:09 Free T4 0.93 ng/dL (0.58-1.64) 12/31/22 05:09 Nasal Adenovirus (PCR) NOT DETECTED 12/27/22 18:00 Nasal B. parapertussis DNA (PCR) NOT DETECTED 12/27/22 18:00 Nasal Coronavir 229E PCR NOT DETECTED 12/27/22 18:00 Nasal Coronavir HKU1 PCR NOT DETECTED 12/27/22 18:00 Nasal Coronavir NL63 PCR NOT DETECTED 12/27/22 18:00 Nasal Coronavir OC43 PCR NOT DETECTED 12/27/22 18:00 Nasal Enterovir/Rhinovir PCR NOT DETECTED 12/27/22 18:00 Nasal Influenza B PCR NOT DETECTED 12/27/22 18:00 Nasal Influenza A PCR NOT DETECTED 12/27/22 18:00 Nasal Parainfluen 1 PCR NOT DETECTED 12/27/22 18:00 Nasal Parainfluen 2 PCR NOT DETECTED 12/27/22 18:00 Nasal Parainfluen 3 PCR NOT DETECTED 12/27/22 18:00 Nasal Parainfluen 4 PCR NOT DETECTED 12/27/22 18:00 Nasal RSV (PCR) NOT DETECTED 12/27/22 18:00 Nasal Screen MRSA (PCR) NEGATIVE (NEGATIVE) 12/27/22 21:15 Nasal B.pertussis DNA PCR NOT DETECTED 12/27/22 18:00 Nasal C.pneumoniae (PCR) NOT DETECTED 12/27/22 18:00 Tarun Human Metapneumo PCR NOT DETECTED 12/27/22 18:00 Nasal M.pneumoniae (PCR) NOT DETECTED 12/27/22 18:00 Nasal SARS-CoV-2 (PCR) NOT DETECTED 12/27/22 18:00 Last Dose Date NA 01/01/23 04:46 Last Dose Time NA 01/01/23 04:46 Digoxin 0.5 ng/mL 01/01/23 04:46 Ethyl Alcohol < 5.0 mg/dL 12/27/22 16:28
[2023-01-02 05:41] LABS: BUN - BLOOD UREA NITROGEN 21 mg/dL (6-20); CALCIUM 8.7 mg/dL (8.5-10.3); CARBON DIOXIDE - CO2 29 mmol/L (21-32); CHLORIDE 103 mmol/L (101-111); CREATININE 0.8 mg/dL (0.6-1.2); DIGOXIN 0.4 ng/mL; GFR - MDRD 93 (>89); GLUCOSE 89 mg/dL (70-100); SODIUM 140 mmol/L (135-145)
[2023-01-02] MEDS: LEVALBUTEROL 1.25 MG/3 ML NEB INH SCH ×2 (07:35→11:10)
[2023-01-02] MEDS ORDERED: ASPIRIN EC 81 MG TABLET PO SCH (09:00)
[2023-01-02] MEDS ORDERED: ENOXAPARIN 40 MG/0.4 ML SYRINGE SUBQ SCH (09:00)
[2023-01-02] MEDS: cefTRIAXone 1 GM in SODIUM CHLORIDE 0.9% MINIBAG 100 ML IV SCH (09:01)
[2023-01-02] MEDS: SODIUM CHLORIDE FLUSH 0.9% 10 ML SYRINGE IVP SCH (09:01)
[2023-01-02] MEDS: buPROPion SR 150 MG TABLET PO SCH (09:01)
[2023-01-02] MEDS: THIAMINE 100 MG TABLET PO SCH (09:01)
[2023-01-02] MEDS: FUROSEMIDE 20 MG TABLET PO SCH (09:01)
[2023-01-02] MEDS: predniSONE 20 MG TABLET PO SCH (09:01)
[2023-01-02] MEDS: MULTIVITAMIN W/MINERALS TABLET PO SCH (09:01)
[2023-01-02] MEDS: DIGOXIN 125 MCG TABLET PO SCH (09:12)
[2023-01-02] MEDS: polyethylene glycoL 3350 17 GM PACKET PO SCH (09:12)
--- NOTE | 2023-01-02 10:46 | Discharge Plan ---
Discharge Plan Problem Reviewed?: Yes Disposition: Home, Self Care Condition: Fair Prescriptions: diltiaZEM CD [Cardizem Cd] 240 mg PO DAILY #30 cap predniSONE [Deltasone] 1 - 2 tablet PO DAILY #35 tablet Digoxin [Lanoxin] 125 mcg PO DAILY #30 tab Tiotropium [place] [Spiriva] 1 puffs INH DAILY 30 Days #1 each Diet: Low Sodium Activity Restrictions: Activity as Tolerated Shower Restrictions: No Assistance Devices: Walker (I witnessed how weak you are and how poor your balance is. You MUST use a walker when you ambulate, do not rely on leaning on furniture please.) Weight Bearing: Full Weight Health Concerns: You were hospitalized because you had a severely low oxygen level caused by a pneumonia and a COPD exacerbation, and you were in rapid Afib-flutter, and you were going through alcohol withdrawal. You were in the ICU in critical condition. You needed higher supplemental oxygen, antibiotics, and adjustment of medications. You are being discharged home on 2 new heart medicines called Cardizem CD and Digoxin, each to take once a day. Also please take 1 baby aspirin daily (up to 4 baby aspirin per day is also allowed), which will be a prevention treatment for a stroke, which people in [id number] are at increased risk for having. Aspirin is advised since you do not wish to take Eliquis. I have ordered an additional inhaler for you to take for your COPD. Also, I have ordered steroids (Deltasone), for your lungs to take on a very slow taper down to off schedule, over the next 5 weeks. All new prescriptions were electronically sent to your [facility] pharmacy in [place]. You have completed a course of treatment for the pneumonia. Please stop smoking. You qualify to attend Pulmonary Rehab here on the ground floor for strengthening your lungs, with your history of COPD. A referral for starting that would have to come from your PCP. You were tested to see if you need a different oxygen setting than what you were doing previously, and it should remain the same: use 4L/min oxygen at rest and increase to 7 L/min oxygen with activity. Please stop binging alcohol, as we discussed. 1-2 drinks for a male, daily average is safe, but not higher. Keep taking daily Thiamine, which is a vitamin that prevents the brain changes that happen from alcohol abuse. Please see your PCP in 1 to 2 weeks for hospital follow-up visit. You will need blood test done (a Digoxin level checked), and vital signs checked regarding the [id number] heart rate, and your lungs checked. Plan of Treatment: As above. Care Goals: Improvement in symptoms and stabilization are the goals. Assessment: The patient understands and is agreeable with the plan. Additional Instructions or Follow Up instructions: If you have new or worsening symptoms, call your PCP for advice, or come to the ER. Follow-Up Care: [facility] - Pulmonary No Smoking: If you smoke, Please STOP! Call for help. Follow-up with: Myrtle Quijano MD [Primary Care Provider] -
--- NOTE | 2023-01-02 11:18 | DISCHARGE SUMMARY ---
Discharge Summary Admit Date: 12/27/22 Discharge Date: 01/02/23 Discharging Provider: Dr Luyl Will Primary Care Provider: Dr Di Quijano Condition at Discharge: Fair Discharge Disposition: 01 Home, Self Care - HPI History of Present Illness: 77 y old male with PMH Alcohol abuse, COPD on home oxugen, A fib not on anti cogaulation, BIBA came with c/o abdominal pain and SOB for 1 day. Patient was put on Bipap in the ER, so most of the history is from at bed side. As per , patient c/o pain in right lower quadrant since this am. Denies nausea, vomiting, diarrhea, constipation. Patient also c/o SOB. Denies fever, cough, chest pain, symptoms On presentation, patient was quite tachypnic, tachycardic in Afib-flutter and hypoxic. Patient was put on Bipap. Labs showed leukocytosis. CXR showed B/L lung opacities. CT abdomen/pelvis showed no acute abnormalities. CT angio of chest showed no acute PE. In ER, patient was given IV solumedrol, IV Lasix. Patient also received 2 doses of diltiazem for A fib with RVR Patient is being admitted to ICU due to Acute on chronic respiratory failure with hypoxia needing BIPAP, with a COPD exacerbation, probable PNA, Atrial fib with RVR, alcohol withdrawal, abdominal pain. - HOSPITAL COURSE Hospital Course: (1) Acute and chronic respiratory failure with hypoxia This gentleman with COPD is on home oxygen: set at 4 L at rest and during sleep and 7 L with activity. He was admitted to the ICU because he needed BiPAP. Also treatment was started for his COPD exacerbation and his pneumonia. When he did not need the BiPAP and was switched to [facility] n.c. suppl O2, and was moved out of the ICU. Eventually his settings were brought down to his normal settings at home. On the day of discharge, she underwent an oximetry walk test and he did not desaturate below 89% therefore, those oxygen settings can remain the same after discharge. Needing these levels of supplemental O2 (4 L at rest and 7 L with activity) suggest he has severe pulmonary disease and should have close follow-up. (2) COPD exacerbation This was likely caused by the pneumonia. He was put on DuoNebs then Xopenex nebs, IV Solu-Medrol, Mucinex, iv antibiotics and supplemental O2. Slowly the oxygen setting was brought down, with a target O2 saturation of 88% or higher in a COPDer. His IV Solu-Medrol was weaned down then we started him on Pred nisone 20 mg daily. He was discharged on oral Prednisone, and planning a very slow taper of steroids for this man: 20 mg p.o. daily for 1 week, 10 mg p.o. daily for 2 weeks, 5 mg p.o. daily for 2 weeks then stop. He was told to resume all his usual nebulized and inhaled medications. He was also prescribed new Spiriva inhaler to use daily. He was advised to stop smoking. He would benefit from Pulmonary Rehab as an outpatient. (3) CAP He made no sputum to send for culture, and his blood cultures were neg to date. He completed a course of empiric antibiotics: IV Zithromax and IV Ceftriaxone. (4) Cor Pulmonale The Echo done here shows a very dilated RV and very poor RV function. This patient's leg edema with venous stasis confirmed that he has had longstanding right heart failure. He was kept on his daily Lasix when his low BP improved. This patient with cor pulmonale, like all patients with cor pulmonale, have a very narrow range of perfect fluid balance; if they are dehydrated the blood pressure will drop, if they are volume overloaded, they will get significant leg edema. A low-salt diet was advised. (5) Alcohol dependence with withdrawal He was put on a CIWA protocol and went through alcohol withdrawal and got prn Ativan. Scheduled doses of Librium were not needed. Patient and gave details about his alcohol use: He binge drinks up to 10-15 whiskey shots a day, he does this about twice a week. This is down from taking in that much whiskey nearly every day of the week. His medication list said he was already on daily thiamine at home, which was continued here and for after discharge. He was strongly advised to decrease alcohol intake. He was seen by PT and by OT and advised to use a walker when ambulating, and not to "furniture surf". (6) Atrial flutter with rapid ventricular response He presented in [id number] with RVR, needed IV Cardizem drip while in the ICU. This was weaned to off as new oral Cardizem was started and he was transferred out of the ICU. He had persistent increases in heart rate with any activity, HR tyree up to 135, that was sustained for over an hour. He needed extra IV Cardizem pushes and we had to keep adjusting the dose of oral Cardizem up, spreading out the doses due to his "soft" BPs. Eventually Digoxin had to be added for rate control. His Dig level was checked and was not toxic. His TSH came back low so I checked a free T4 and that was within normal limits. I suspect his Atrial fib-flutter is from his severe COPD. With the at bedside, I had a long discussion with him about why he chooses not to use Eliquis. I described the benefits and the risks. He declines to use an anticoagulant and wants to stay on aspirin daily as his stroke prophylaxis. He was discharged home with a new prescription for Cardizem CD 240 mg daily, and Digoxin 0.125 mg daily. He will need a Dig level checked soon and possible adjustment of his Digoxin and Cardizem doses, especially if BP is low. (7) Ventricular bigeminy This was new for him. We checked for electrolyte abnormalities (K, Mg) related to getting Lasix, and a troponin, and they were normal. Therefore I suspect it was from having mild systolic heart failure, or from cor pulmonale or from hyp oxia. (8) Chronic systolic heart failure The Echo done here shows LVEF 40-50%. The patient and his said he was never told he had a weak heart. I suspect he has systolic failure from poorly controlled rapid heart rate in Afib-flutter. He was kept on his Lasix. His "soft " blood pressure would not tolerate an JOANA inhibitor, or Spironolactone, and his EF is not below 40% currently. I would expect the LVEF to improve if he has good heart rate control. - ALLERGIES Allergies/Adverse Reactions: Allergies Allergy/AdvReac Type Severity Reaction Status Date / Time bee pollen Allergy Unknown Verified 12/27/22 16:35 Penicillins Allergy Unknown Verified 12/27/22 16:35 - MEDICATIONS Home Medications: Ambulatory Orders Medication Instructions Recorded Confirmed hydrOXYzine HCL [Hydroxyzine HCl] 25 mg PO QID PRN 08/29/19 12/28/22 Albuterol 2.5 mg INH RTQ4H PRN neb 09/03/19 12/28/22 Nebulizer [Aeroneb Go Nebulizer] 1 each MC QID #1 each 09/03/19 12/28/22 Thiamine [Vitamin B-1] 100 mg PO DAILY tablet 09/03/19 12/27/22 buPROPion [Wellbutrin Sr] 150 mg PO BID #37 tablet 09/03/19 12/28/22 Albuterol Sulfate [Proair 90 mcg IH Q4HR PRN 12/27/22 12/28/22 Respiclick] Benzonatate 1 cap PO Q8HR PRN 12/27/22 12/27/22 Budesonide/Formoterol Fumarate 1 puffs INH BID 12/27/22 12/28/22 [Symbicort 160-4.5 Mcg Inhaler] Furosemide [Lasix] 20 mg PO DAILY 12/27/22 12/28/22 Ibuprofen 400 mg PO BID PRN 12/28/22 12/28/22 Multivitamin with Minerals 1 tab PO DAILY 12/28/22 12/28/22 [Multivitamins with Minerals] Digoxin [Lanoxin] 125 mcg PO DAILY #30 tab 01/02/23 Tiotropium [place] [Spiriva] 1 puffs INH DAILY 30 Days #1 each 01/02/23 diltiaZEM CD [Cardizem Cd] 240 mg PO DAILY #30 cap 01/02/23 predniSONE [Deltasone] 1 - 2 tablet PO DAILY #35 tablet 01/02/23 - PHYSICAL EXAM AT DISCHARGE General Appearance: positive: Mild distress (He does pursed lip breathing after activity, wearing O2 per n.c.), Other (Disheveled, thin male with long white hair and ren.) Eyes Bilateral: positive: No lid inflammation, Other (Lazy eye on the L, has leftward deviation.) ENT: positive: ENT inspection nml, No signs of dehydration, Other (Poor dentition) Neck: positive: Nml inspection, No JVD (in 90 degree upright position) Respiratory: positive: Other (Poor air movement but no wheezing or rales) Cardiovascular: positive: Irregularly irregular, Systolic murmur Abdomen: positive: Non-tender, Nml bowel sounds, No distention Skin: positive: Warm, Dry, Other (ecchymoses of arms) Extremities: positive: Non-tender, Other (1+ edema to mid shins) Neurologic/Psychiatric: positive: Oriented x3, Motor nml - LABS Result Diagrams: 01/01/23 04:46 01/02/23 05:06 - DIAGNOSTIC IMAGING Diagnostic Imaging Results: Final report reviewed - FOLLOW UP Follow Up: See PCP later this week (already scheduled yearly appointment). - TIME SPENT Time Spent in Discharge (Minutes): 50
[2023-01-02 12:38] VITALS: BP 101/72
== END 2023-01-02 14:30 | disposition home or self-care (01) | DRG 189 ==
LOC: EDUNIT# → ED 16:17 → ICU 19:58 → MS2 12-29 15:56
PROVIDERS: ADMIT Internal Medicine; ATTEND Internal Medicine
DX: J96.21 Acute and chronic respiratory failure with hypoxia (principal); J18.9 Pneumonia, unspecified organism; J44.1 Chronic obstructive pulmonary disease with (acute) exacerbation; F17.200 Nicotine dependence, unspecified, uncomplicated; F10.230 Alcohol dependence with withdrawal, uncomplicated; I27.82 Chronic pulmonary embolism; J44.0 Chronic obstructive pulmonary disease with (acute) lower respiratory infection; Z20.822 Contact with and (suspected) exposure to COVID-19; F10.239 Alcohol dependence with withdrawal, unspecified; I48.92 Unspecified atrial flutter; I50.22 Chronic systolic (congestive) heart failure; I48.91 Unspecified atrial fibrillation; R10.31 Right lower quadrant pain; D72.829 Elevated white blood cell count, unspecified; I87.8 Other specified disorders of veins; R00.8 Other abnormalities of heart beat; Z79.899 Other long term (current) drug therapy; Z87.891 Personal history of nicotine dependence; Z88.0 Allergy status to penicillin; Z99.81 Dependence on supplemental oxygen
CPT/HCPCS: 36415; 36600; 71045; 71275; 74177; 80048; 80053; 80162; 82310; 82330; 82803; 83605; 83690; 83735; 83880; 84100; 84132; 84439; 84443; 84484; 85025; 85610; 87040; 87150; 87633; 93005; 93306; 94640; 94660; 96374; 96375; 97162; 97166; 97530; 97535; 99284; 99285; A9270; G0480; J1650; J2060; J3411; J7040; J7512; Q9967; 80320

== ENCOUNTER 2023-02-08 12:47 | Outpatient (CLI) | payer MEDICARE ==
[2023-02-08 19:51] LABS: ALBUMIN 3.8 g/dL (3.2-5.5); ALBUMIN/GLOBULIN RATIO 1.3 (1.0-2.2); ALKALINE PHOSPHATASE 74 IU/L (42-121); ALT ALANINE AMINOTRANSFERASE 31 IU/L (10-60); AST ASPARTATE AMINOTRANSFERASE 26 IU/L (10-42); BILIRUBIN,TOTAL 0.8 mg/dL (0.2-1.0); BUN - BLOOD UREA NITROGEN 32 mg/dL (6-20); CALCIUM 9.3 mg/dL (8.5-10.3); CARBON DIOXIDE - CO2 31 mmol/L (21-32); CHLORIDE 106 mmol/L (101-111); CREATININE 1.1 mg/dL (0.6-1.2); GFR - MDRD 65 (>89); GLUCOSE 95 mg/dL (70-100); POTASSIUM 4.3 mmol/L (3.5-5.0); SODIUM 144 mmol/L (135-145); TOTAL PROTEIN 6.8 g/dL (6.7-8.2)
[2023-02-08 20:45] LABS: DIGOXIN < 0.2 ng/mL
== END 2023-02-08 12:48 | disposition home or self-care (01) ==
LOC: LAB.S 12:47
PROVIDERS: ATTEND Internal Medicine
DX: I50.9 Heart failure, unspecified (principal)
CPT/HCPCS: 36415; 80053; 80162

== ENCOUNTER 2023-11-04 14:37 | Outpatient (CLI) | payer MEDICARE ==
[2023-11-04 14:55] LABS: BASOPHILS # (AUTO) 0.1 10^3/uL (0.0-0.1); BASOPHILS % (AUTO) 0.8 %; EOSINOPHILS % (AUTO) 0.3 %; HCT - HEMATOCRIT 45.1 % (42.0-52.0); LYMPHOCYTES # (AUTO) 0.7 10^3/uL (1.5-3.5); LYMPHOCYTES % (AUTO) 5.7 %; MEAN CORPUSCULAR HEMOGLOBIN 30.4 pg (27.0-31.0); MEAN PLATELET VOLUME 9.4 fL (7.4-11.4); MONOCYTES # (AUTO) 0.2 10^3/uL (0.0-1.0); NEUTROPHILS # (AUTO) 10.7 10^3/uL (1.5-6.6); NEUTROPHILS % (AUTO) 90.6 %; PLT - PLATELET COUNT 229 10^3/uL (130-450); RED CELL DISTRIBUTION WIDTH 14.5 % (12.0-15.0); WHITE BLOOD COUNT 11.8 x10^3/uL (4.8-10.8)
[2023-11-04 15:09] LABS: ALBUMIN/GLOBULIN RATIO 1.5 (1.0-2.2); BILIRUBIN,TOTAL 0.5 mg/dL (0.2-1.0); CALCIUM 10.3 mg/dL (8.5-10.3); POTASSIUM 4.3 mmol/L (3.5-4.5); TOTAL PROTEIN 6.6 g/dL (6.4-8.9)
[2023-11-04 15:20] LABS: ESTIMATED AVERAGE GLUCOSE 108 mg/dL (70-100); HEMOGLOBIN A1c% 5.4 % (4.27-6.07)
--- NOTE | 2023-11-05 20:15 | XRAY Report ---
PROCEDURE: Chest 2V INDICATIONS: COPD WITH EXACERBATION TECHNIQUE: 2 views of the chest were acquired. COMPARISON: Chest radiograph on December 27, 2022. CT chest on December 27, 2022. FINDINGS: Surgical changes and devices: None. Lungs and pleura: No pleural effusions or pneumothorax. Bilateral diffuse interstitial prominence. B ilateral diffuse patchy consolidation. Trace left pleural effusion. Emphysematous changes in the bila teral lung apices. Mediastinum: Bilateral hilar prominence, as before. Heart size is normal. Bones and chest wall: No suspicious bony lesions. Overlying soft tissues appear unremarkable. IMPRESSION: 1.Bilateral patchy consolidation suggestive of aspiration and/or pneumonia. 2.Mild diffuse interstitial prominence may reflect superimposed pulmonary fibrosis and/or edema. 3.Bilateral perihilar prominence, most compatible with known history of hilar adenopathy. Reviewed by: Martina Hall MD on 11/05/2023 8:14 PM PDT Approved by: Martina Hall MD on 11/05/2023 8:14 PM PDT Station ID: [id number]
== END 2023-11-04 14:38 | disposition home or self-care (01) ==
LOC: LAB 14:37
PROVIDERS: ATTEND Internal Medicine
DX: J44.1 Chronic obstructive pulmonary disease with (acute) exacerbation (principal); I27.81 Cor pulmonale (chronic); R73.02 Impaired glucose tolerance (oral); R91.8 Other nonspecific abnormal finding of lung field
CPT/HCPCS: 36415; 80053; 83036; 83880; 85025

== ENCOUNTER 2023-12-27 15:05 | Outpatient (CLI) | payer MEDICARE ==
--- NOTE | 2023-12-27 21:45 | XRAY Report ---
PROCEDURE: Chest 2V INDICATIONS: COPD WITH EXACERBATION TECHNIQUE: 2 views of the chest were acquired. COMPARISON: 11/04/2023, 12/27/2022 and 10/18/2021. FINDINGS: Surgical changes and devices: None. Lungs and pleura: No pleural effusions or pneumothorax. Chronic emphysematous changes are seen. No f ocal infiltrate. Mediastinum: Mediastinal contours appear normal. Heart size is normal. Bones and chest wall: No suspicious bony lesions. Overlying soft tissues appear unremarkable. IMPRESSION: COPD. No focal infiltrate, pleural effusion or pneumothorax. What Reviewed by: Ebenezer Quiroz MD on 12/27/2023 9:44 PM PDT Approved by: Ebenezer Quiroz MD on 12/27/2023 9:44 PM PDT Station ID: [id number]
== END 2023-12-27 15:06 | disposition home or self-care (01) ==
LOC: DI 15:05
PROVIDERS: ATTEND Internal Medicine
DX: J44.1 Chronic obstructive pulmonary disease with (acute) exacerbation (principal); J43.9 Emphysema, unspecified

== ENCOUNTER 2024-02-12 18:24 | Outpatient (CLI) | payer MEDICARE | END 2024-02-12 23:59 | disposition critical access hospital (66) | LOC: EMS 18:24 | DX: R06.02 Shortness of breath (principal); R05.9 Cough, unspecified; Z99.81 Dependence on supplemental oxygen; J44.9 Chronic obstructive pulmonary disease, unspecified | CPT/HCPCS: A0425; A0427 ==

== ENCOUNTER 2024-02-12 18:37 | Inpatient (IN) | payer MEDICARE ==
[2024-02-12] MEDS ORDERED: IPRATROPIUM/ALBUTEROL 3 ML NEB INH ONE (18:54)
--- NOTE | 2024-02-12 18:54 | ED Physician Documentation ---
PD HPI DYSPNEA - Stated complaint Stated Complaint: COPD EXACERBATION - Chief complaint Chief Complaint: Resp - History obtained from History obtained from: Patient, EMS - Additional information Additional information: He has a history of COPD and is on summer between 5 and 8 L of oxygen at home depending on how much he is exerting himself. For the last 2 weeks has had increased trouble breathing especially if he is awake. He says is not so bad in the morning and while he is trying to sleep. He is insistent that he does not want to be intubated if he were to come to that. Given his oxygen requirement I did query if he had a practicing urologist and it sounds like he does not right now. He takes some sort of inhaler at home but he does not know what it is called. He says he used to be on Symbicort but is on something else now. PD PAST MEDICAL HISTORY - Past Medical History Past Medical History: Yes Cardiovascular: Atrial fibrillation Respiratory: COPD Neuro: None Endocrine/Autoimmune: None GI: None : Incontinence Psych: None Musculoskeletal: None Derm: None - Past Surgical History Past Surgical History: Yes HEENT: Cataracts - Present Medications Home Medications: Ambulatory Orders Medication Instructions Recorded Confirmed hydrOXYzine HCL [Hydroxyzine HCl] 25 mg PO QID PRN 08/29/19 12/28/22 Albuterol 2.5 mg INH RTQ4H PRN neb 09/03/19 12/28/22 Nebulizer [Aeroneb Go Nebulizer] 1 each MC QID #1 each 09/03/19 12/28/22 Thiamine [Vitamin B-1] 100 mg PO DAILY tablet 09/03/19 12/27/22 buPROPion [Wellbutrin Sr] 150 mg PO BID #37 tablet 09/03/19 12/28/22 Albuterol Sulfate [Proair 90 mcg IH Q4HR PRN 12/27/22 12/28/22 Respiclick] Benzonatate 1 cap PO Q8HR PRN 12/27/22 12/27/22 Budesonide/Formoterol Fumarate 1 puffs INH BID 12/27/22 12/28/22 [Symbicort 160-4.5 Mcg Inhaler] Furosemide [Lasix] 20 mg PO DAILY 12/27/22 12/28/22 Ibuprofen 400 mg PO BID PRN 12/28/22 12/28/22 Multivitamin with Minerals 1 tab PO DAILY 12/28/22 12/28/22 [Multivitamins with Minerals] Digoxin [Lanoxin] 125 mcg PO DAILY #30 tab 01/02/23 Tiotropium [place] [Spiriva] 1 puffs INH DAILY 30 Days #1 each 01/02/23 diltiaZEM CD [Cardizem Cd] 240 mg PO DAILY #30 cap 01/02/23 predniSONE [Deltasone] 1 - 2 tablet PO DAILY #35 tablet 01/02/23 - Allergies Allergies/Adverse Reactions: Allergies Allergy/AdvReac Type Severity Reaction Status Date / Time bee pollen Allergy Unknown Verified 02/12/24 18:53 Penicillins Allergy Unknown Verified 02/12/24 18:53 - Social History Does the pt smoke?: Yes Smoking Status: Current every day smoker Does the pt drink ETOH?: Yes Does the pt have substance abuse?: No - Immunizations Immunizations are current?: Yes PD ED PE NORMAL - Vitals Vital signs reviewed: Yes - General General: Alert and oriented X 3, Other (He is on 12 L of oxygen, speaking in full sentences.) - HEENT HEENT: PERRL, EOMI - Neck Neck: Supple, no meningeal sign, No bony TTP - Cardiac Cardiac: RRR, No murmur - Respiratory Respiratory: Other (Modestly tachypneic, diminished lungs without focal findings.) - Abdomen Abdomen: Non tender - Extremities Extremities: No edema, No calf tenderness / cord - Neuro Neuro: Alert and oriented X 3 Results - Vitals Vitals: Vital Signs - 24 hr 02/12/24 02/12/24 02/12/24 18:49 18:55 19:46 Temperature 37.4 C Heart Rate 115 H 111 H 112 H Respiratory 20 24 22 Rate Blood Pressure 101/80 102/79 O2 Saturation 94 90 L If not protocol 15 : Oxygen Flow, liters/minute Oxygen O2 Source [] Nasal cannula O2 Source Non-rebreather mask - Labs Labs: Laboratory Tests 02/12/24 02/12/24 02/12/24 18:54 18:54 18:54 WBC 12.2 H RBC 4.50 L Hgb 13.5 L Hct 43.1 MCV 95.8 H MCH 30.0 MCHC 31.3 L RDW 14.0 Plt Count 198 MPV 9.9 Neut # (Auto) 10.3 H Lymph # (Auto) 0.9 L [place] # (Auto) 0.8 Eos # (Auto) 0.0 Baso # (Auto) 0.1 Absolute Nucleated RBC 0.00 Nucleated RBC % 0.0 VBG pH 7.345 VBG pCO2 40.3 L VBG pO2 36.3 VBG HCO3 21.5 L VBG Total CO2 22.7 L VBG O2 Saturation 65.5 VBG Base Excess -3.9 L Sodium 143 Potassium 4.2 Chloride 110 Carbon Dioxide 23 Anion Gap 10.0 BUN 22 H Creatinine 1.0 Estimated GFR (MDRD) 72 L Glucose 174 H Calcium 9.3 Phosphorus 3.6 Magnesium 1.6 L Total Bilirubin 0.9 AST 35 ALT 33 Alkaline Phosphatase 97 Total Protein 6.3 L Albumin 3.6 Globulin 2.7 Albumin/Globulin Ratio 1.3 - Rads (name of study) CTPA showing severe emphysema with scattered opacities especially right upper lobe likely infectious, lingular mass Relevant Findings:: Final report received, EMP independent interpretation of test PD Medical Decision Making - ED course ED course: This is an 78-year-old gentleman who at baseline is COPD with an 8 L/min oxygen requirement. Now is needing 12 L after an acute illness with cough. He does not appear ill per se and is in good spirits. Lungs are diminished but generally clear. Workup in the emergency department demonstrates a CBC showing leukocytosis. Unremarkable venous blood gas. CMP only really notable for hypomagnesemia which I will replete via IV, and CT pulmonary angiogram without PE but with a new mass and pneumonia superimposed on severe COPD. He had received Solu-Medrol prior to arrival and to the side Rocephin and Zithromax. Given his oxygen requirement he is amenable to staying in the hospital but confirms DNR/DNI status. Spoke Dr Hannah for telehealth at 2020. Departure - Departure Disposition: 66 [facility] DC/Xfer Clinical Impression: Acute and chronic respiratory failure, Pneumonia, Lung mass, DNI (do not intubate), DNR (do not resuscitate) Forms: PCP List
[2024-02-12] MEDS: IPRATROPIUM/ALBUTEROL 3 ML NEB INH STA (18:55)
[2024-02-12 18:58] LABS: VBG BASE EXCESS -3.9 mmol/L (-2 - +2); VBG HCO3 21.5 mmol/L (23-28); VBG OXYGEN SATURATION 65.5 % (60-80); VBG PCO2 40.3 mmHg (41-51); VBG PH 7.345 (7.31-7.41); VBG PO2 36.3 mmHg (25-47); VBG TOTAL CO2 22.7 mmol/L (24-29)
[2024-02-12 19:00] LABS: BASOPHILS # (AUTO) 0.1 10^3/uL (0.0-0.1); HCT - HEMATOCRIT 43.1 % (42.0-52.0); HGB - HEMOGLOBIN 13.5 g/dL (14.0-18.0); LYMPHOCYTES # (AUTO) 0.9 10^3/uL (1.5-3.5); LYMPHOCYTES % (AUTO) 7.4 %; MEAN CORPUSCULAR HGB CONC 31.3 g/dL (32.0-36.0); MEAN CORPUSCULAR VOLUME 95.8 fL (80.0-94.0); MEAN PLATELET VOLUME 9.9 fL (7.4-11.4); MONOCYTES # (AUTO) 0.8 10^3/uL (0.0-1.0); MONOCYTES % (AUTO) 6.7 %; NEUTROPHILS # (AUTO) 10.3 10^3/uL (1.5-6.6); NEUTROPHILS % (AUTO) 84.3 %; PLT - PLATELET COUNT 198 10^3/uL (130-450); WHITE BLOOD COUNT 12.2 x10^3/uL (4.8-10.8)
[2024-02-12 19:09] LABS: MAGNESIUM 1.6 mg/dL (1.7-2.3)
[2024-02-12 19:15] LABS: ALBUMIN 3.6 g/dL (3.2-5.5); ALBUMIN/GLOBULIN RATIO 1.3 (1.0-2.2); BILIRUBIN,TOTAL 0.9 mg/dL (0.2-1.0); CALCIUM 9.3 mg/dL (8.5-10.3); PHOSPHORUS 3.6 mg/dL (2.5-5.0); POTASSIUM 4.2 mmol/L (3.5-4.5); TOTAL PROTEIN 6.3 g/dL (6.4-8.9)
[2024-02-12] MEDS ORDERED: iohexoL-300 100 ML VIAL ONE (19:19)
[2024-02-12] MEDS: methylPREDNISolone SUCCINATE 125 MG/2 ML VIAL IVP STA (19:31)
[2024-02-12] MEDS: iohexoL-300 100 ML VIAL IVP ONE (19:40)
[2024-02-12] MEDS: cefTRIAXone 1 GM VIAL IVP STA (20:04)
[2024-02-12] MEDS: AZITHROMYCIN INJ 500 MG in SODIUM CHLORIDE 0.9% 250 ML IV STA (20:04)
--- NOTE | 2024-02-12 20:05 | CT Report ---
PROCEDURE: Angio Chest INDICATIONS: dyspnea, pe protocol CONTRAST: 80ml [id number] TECHNIQUE: After the administration of intravenous contrast, 2 mm axial images were acquired from the pulmonary apices to the posterior costophrenic angles during the arterial phase. In addition, 1 mm lung kernel and 5 mm soft tissue kernel reconstructions were performed. 3-dimensional coronal oblique maximum int ensity projection (MIP) reformats, 8 mm axial MIP, and 5 mm coronal and sagittal MPR reformats were t hen performed through the thorax. For radiation dose reduction, the following was used: automated exp osure control, adjustment of mA and/or kV according to patient size. COMPARISON: Radiograph 12/27/2023, 12/27/2022 CT FINDINGS: Image quality: Diagnostic Lungs and pleura:Severe emphysema. Scattered scarring and atelectasis. There are small pleural effusi ons. More focal opacities are seen in the right midlung and at the bases, along with atelectasis. Spi culated masslike regions are seen in the lingula, the larger region measuring 3.4 x 3 cm. Mediastinum, heart, and esophagus: Dilated pulmonary artery indicating chronically high pulmonary pre ssures. No acute embolism. No hiatal hernia. Mildly enlarged hilar mediastinal lymph nodes, for example subcarinal node measures 1.2 cm in short axis (4/57). Coronary calcifications. Chest wall and thyroid: Unremarkable thyroid and chest wall Upper abdomen: Reflux of contrast into hepatic veins indicating high right heart pressures. No gross abnormality on these pulmonary arterial phase images. Bones: Degenerative changes, no acute or suspicious osseous finding. IMPRESSION: No acute pulmonary embolism. Mild scattered opacities and small effusions, most notably at the bases and posterior region of the r ight upper lobe, likely infectious/inflammatory. More spiculated masslike regions are seen in the medial portion of the lingula, suspicious for malign lilo. Mildly enlarged mediastinal and hilar lymph nodes are also present. Severe background emphysema. Reviewed by: Jeronimo Martinez MD on 02/12/2024 8:04 PM PDT Approved by: Jeronimo Martinez MD on 02/12/2024 8:04 PM PDT Station ID: [id number]
[2024-02-12] MEDS ORDERED: SODIUM CHLORIDE FLUSH 0.9% 10 ML SYRINGE IVP PRN (20:22)
[2024-02-12] MEDS ORDERED: ONDANSETRON 4 MG/2 ML VIAL IVP PRN (20:22)
[2024-02-12] MEDS ORDERED: HYDROcod/ACETAM 5/325 MG TABLET PO PRN (20:22)
--- NOTE | 2024-02-12 20:38 | HISTORY & PHYSICAL EXAMINATION ---
Chief Complaint - Chief Complaint Chief Complaint: shortness of breath History of Present Illness - Admitted From Admitted From:: home/ED - History Obtained From Exam Limitations: acuity of illness - History of Present Illness HPI Comment/Other: Mr. Morales is a 6o y/o gentleman with a history of copd, chronic respiratory failure on home oxygen at 8 L. He presented to the ED with complaints of worsening shortness of breath for a day duration. He denied any fevers or chills . He did have a non-productive cough. EMS noted he was hypoxic on his home oxygen and was titrated up to 12 liters. he received duonebs and steroids in route. In the ED, CT was obtained and demonstrate RUL infiltrates as well as multiple masses concerning for malignancy. During my evaluation, patient was resting comfortably. mild increased respiratory effort with noted muscle recruitment. No tripoding posture noted. My evaluation was performed using telehealth tools including live-video. Patient consent was obtained at the time of my interview. History - Past Medical History Cardiovascular: reports: Atrial fibrillation Respiratory: reports: COPD Neuro: reports: None Endocrine/Autoimmune: reports: None GI: reports: None : reports: Incontinence Psych: reports: None Musculoskeletal: reports: None Derm: reports: None MRSA Hx?: No - Past Surgical History HEENT: reports: Cataracts - Family & Social History Family History Comment/Other: Difficult to obtain family history at this moment given he is in respiratory distress and on BiPAP. Social History Notes: He continues to smoke one pack per day. He has smoked for over 35 years. Unable to obtain further social history at this time given his respiratory distress and use of BiPAP. - Substance History Use: Uses substance without health or social issues: Tobacco Meds/Allgy - Home Medications Home Medications: Ambulatory Orders Medication Instructions Recorded Confirmed hydrOXYzine HCL [Hydroxyzine HCl] 25 mg PO QID PRN 08/29/19 12/28/22 Albuterol 2.5 mg INH RTQ4H PRN neb 09/03/19 12/28/22 Nebulizer [Aeroneb Go Nebulizer] 1 each MC QID #1 each 09/03/19 12/28/22 Thiamine [Vitamin B-1] 100 mg PO DAILY tablet 09/03/19 12/27/22 buPROPion [Wellbutrin Sr] 150 mg PO BID #37 tablet 09/03/19 12/28/22 Albuterol Sulfate [Proair 90 mcg IH Q4HR PRN 12/27/22 12/28/22 Respiclick] Benzonatate 1 cap PO Q8HR PRN 12/27/22 12/27/22 Budesonide/Formoterol Fumarate 1 puffs INH BID 12/27/22 12/28/22 [Symbicort 160-4.5 Mcg Inhaler] Furosemide [Lasix] 20 mg PO DAILY 12/27/22 12/28/22 Ibuprofen 400 mg PO BID PRN 12/28/22 12/28/22 Multivitamin with Minerals 1 tab PO DAILY 12/28/22 12/28/22 [Multivitamins with Minerals] Digoxin [Lanoxin] 125 mcg PO DAILY #30 tab 01/02/23 Tiotropium [place] [Spiriva] 1 puffs INH DAILY 30 Days #1 each 01/02/23 diltiaZEM CD [Cardizem Cd] 240 mg PO DAILY #30 cap 01/02/23 predniSONE [Deltasone] 1 - 2 tablet PO DAILY #35 tablet 01/02/23 - Allergies Allergies/Adverse Reactions: Allergies Allergy/AdvReac Type Severity Reaction Status Date / Time bee pollen Allergy Unknown Verified 02/12/24 18:53 Penicillins Allergy Unknown Verified 02/12/24 18:53 Exam - Vital Signs Vital Signs: Vital Signs x48h Temp Pulse Resp BP Pulse Ox O2 Flow Rate 02/12/24 19:46 112 H 22 102/79 90 L 02/12/24 18:55 111 H 24 15 02/12/24 18:49 37.4 C 115 H 20 101/80 94 Sepsis Event Note (H) - Evaluation Current Stage of Sepsis: Sepsis Possible source of Sepsis: positive: Pulmonary - Sepsis Criteria Sepsis Criteria: Respiratory: Increasing oxygen requirements, WBC count greater than 12,000 or less than 4000 Conclusion/Plan - Problem List (1) Sepsis Conclusion/Plan: -criteria met: worsening hypoxia, leukocytosis wbc [id number], lactic level pending -contiue to monitor vitals with continuous telemetry and oximetry -cultures and viral studies pending -continue with empiric antibiotics -gentle fluids as needed. Qualifiers: Sepsis type: sepsis due to unspecified organism Severe sepsis acute organ dysfunction type: acute respiratory failure Acute respiratory failure type: with hypoxia Severe sepsis shock status: without septic shock (2) Pneumonia Conclusion/Plan: -CT reviewed independently -continue with empiric antibiotics -duonebs and incentive spirometry as needed -titrate supplemental oxygen as tolerated -monitor vitals with telmetry and pulse oximetry (3) Acute and chronic respiratory failure with hypoxia Conclusion/Plan: secondary to pneumonia and copd exacerbation -supplmenetal oxygen, duonebs, antibiotics per protocol (4) Lung mass Conclusion/Plan: -newly diagnosed -will require follow up for further evaluation with biopsy -consultation with oncology if appropriate - Lab Results Fish Bones: 02/12/24 18:54 02/12/24 18:54 Core Measures - Anticipated LOS I expect patient to be DC'd or transferred within 96 hours.: Yes - DVT/VTE - Prophylaxis VTE/DVT Device ordered at admit?: Yes VTE/DVT Prophylaxis med ordered at admit?: Yes Telemedicine Consult Details - Provider Location & Consult Time Telemedicine consultation conducted via videoconferencing?: Yes
[2024-02-12 20:51] LABS: CORONAVIRUS 229E-RESP PCR NOT DETECTED; CORONAVIRUS HKU1-RESP PCR NOT DETECTED
[2024-02-12 20:52] LABS: CORONAVIRUS NL63-RESP PCR NOT DETECTED; CORONAVIRUS OC43-RESP PCR NOT DETECTED
[2024-02-12 20:53] LABS: B. PARAPERTUSSIS- RESP PCR PAN NOT DETECTED; B. PERTUSSIS- RESP PCR PANEL NOT DETECTED; C. PNEUMONIAE- RESP PCR PANEL NOT DETECTED; HUMAN METAPNEUMOVIRUS NOT DETECTED; INFLUENZA A- RESP PCR PANEL NOT DETECTED; INFLUENZA B - RESP PCR PANEL NOT DETECTED; M. PNEUMONIAE- RESP PCR PANEL NOT DETECTED; PARAINFLUENZA VIRUS 1 NOT DETECTED; PARAINFLUENZA VIRUS 2 NOT DETECTED; PARAINFLUENZA VIRUS 3 NOT DETECTED; PARAINFLUENZA VIRUS 4 NOT DETECTED; RHINOVIRUS/ENTEROVIRUS DETECTED; RSV- RESP PCR PANEL NOT DETECTED; SARS-CoV-2 -RESP PCR PANEL DETECTED
[2024-02-12] MEDS: MAGNESIUM SULFATE 2 GRAM 2 GM/50 ML BAG IV ONE (21:12)
[2024-02-13] MEDS: SODIUM CHLORIDE FLUSH 0.9% 10 ML SYRINGE IVP SCH (00:31)
[2024-02-13 05:53] LABS: CALCIUM 9.1 mg/dL (8.5-10.3); CREATININE 0.9 mg/dL (0.6-1.3); POTASSIUM 4.8 mmol/L (3.5-4.5)
--- NOTE | 2024-02-13 08:17 | PROVIDER PROGRESS NOTE ---
Assessment/Plan - Problem List (1) Acute and chronic respiratory failure Assessment/Plan: Plan: Continue to monitor oxygen saturation with goal of maintaining oxygen saturation between 88 and 92%. Wean oxygen as tolerated. (2) COPD Exacerbation Plan: Continue IV Solu-Medrol 40 mg daily Continue DuoNeb. (3) COVID Pneumonia Plan: Continue empiric antibiotic coverage for possible secondary bacterial pneumonia. Continue to monitor leukocytosis. (4) Lung mass Comments: CT scan of the chest reveals severe end-stage emphysematous changes. There is a spiculated mass medially located in the lingula. Plan: Discuss results of CT scan with patient. (5) Sepsis Comments: National early warning score is 10 and is consistent with sepsis. Continue to treat with empiric antibiotics and monitor vital signs. (6) Goals of Care Comments: During our visit we discussed the fact that patient has severe end-stage COPD. In the event of a cardiopulmonary arrest he would not want chest compressions, defibrillation or artificial life support with mechanical ventilation. Patient reports that it is highly unlikely he would want to receive any further workup for his lung mass. He would like to discuss the option of hospice. Plan is to arrange for educational meeting with regards to hospice. - Current Meds Current Meds: Current Medications Generic Name Dose Route Start Last Admin Trade Name Freq PRN Reason Stop Dose Admin Sodium Chloride 10 ml 02/13/24 01:00 02/13/24 00:31 Sodium Chloride Flush 0.9% 10 Ml Syringe IVP 10 ml 0100,0900,1700 EDEL Administration - Lab Result Fish Bone Diagrams: 02/12/24 18:54 02/13/24 05:20 Subjective - Subjective Patient Reports: Other (Alert. Denies chest pain abdominal pain. Patient reports he is comfortable on oxygen. No other complaints at this time.) Objective Vital Signs: Vital Signs - 24 hr 02/12/24 02/12/24 02/12/24 18:49 18:55 19:46 Temperature 37.4 C Heart Rate 115 H 111 H 112 H Heart Rate [ Brachial] Respiratory 20 24 22 Rate Blood Pressure 101/80 102/79 Blood Pressure [Right Brachial artery] O2 Saturation 94 90 L If not protocol 15 : Oxygen Flow, liters/minute 02/12/24 02/12/24 02/12/24 21:00 21:30 22:00 Temperature Heart Rate 96 92 85 Heart Rate [ Brachial] Respiratory 23 33 H 22 Rate Blood Pressure 98/80 102/77 100/80 Blood Pressure [Right Brachial artery] O2 Saturation 98 96 97 If not protocol : Oxygen Flow, liters/minute 02/12/24 02/12/24 02/13/24 22:39 23:03 00:24 Temperature 36.5 C 36.4 C L Heart Rate Heart Rate [ 106 H 91 Brachial] Respiratory 20 22 Rate Blood Pressure Blood Pressure 107/89 H 101/71 [Right Brachial artery] O2 Saturation 98 92 If not protocol 15 13 13 : Oxygen Flow, liters/minute 02/13/24 02/13/24 02/13/24 04:21 04:45 04:50 Temperature 36.5 C Heart Rate Heart Rate [ 75 Brachial] Respiratory 16 Rate Blood Pressure Blood Pressure 92/65 [Right Brachial artery] O2 Saturation 99 99 97 If not protocol 13 13 10 : Oxygen Flow, liters/minute 02/13/24 07:45 Temperature 36.8 C Heart Rate Heart Rate [ 92 Brachial] Respiratory 22 Rate Blood Pressure Blood Pressure 100/72 [Right Brachial artery] O2 Saturation 95 If not protocol 10 : Oxygen Flow, liters/minute Oxygen O2 Source [With Activity] Nasal cannula O2 Source Non-rebreather mask Oxygen Flow Rate 15 I&O (Last 24 Hrs): Intake and Output Totals x24h 02/11/24 02/12/24 02/13/24 23:59 23:59 23:59 Intake Total 300 Output Total 125 100 Balance 175 -100 General: Alert HEENT: Atraumatic, PERRLA Neck: No JVD Neuro: Alert, Non Focal Cardiovascular: Other (Positive S1-S2 no extra heart sounds.) Respiratory: Other (Fair air exchange in all lung navas no wheezing no crackles.) Abdomen: Other (Soft nontender nondistended positive bowel sounds.) Extremities: No cyanosis Skin: No rashes - Results Results: Laboratory Results WBC 12.2 x10^3/uL (4.8-10.8) H 02/12/24 18:54 RBC 4.50 10^6/uL (4.70-6.10) L 02/12/24 18:54 Hgb 13.5 g/dL (14.0-18.0) L 02/12/24 18:54 Hct 43.1 % (42.0-52.0) 02/12/24 18:54 MCV 95.8 fL (80.0-94.0) H 02/12/24 18:54 MCH 30.0 pg (27.0-31.0) 02/12/24 18:54 MCHC 31.3 g/dL (32.0-36.0) L 02/12/24 18:54 RDW 14.0 % (12.0-15.0) 02/12/24 18:54 Plt Count 198 10^3/uL (130-450) 02/12/24 18:54 MPV 9.9 fL (7.4-11.4) 02/12/24 18:54 Neut # (Auto) 10.3 10^3/uL (1.5-6.6) H 02/12/24 18:54 Lymph # (Auto) 0.9 10^3/uL (1.5-3.5) L 02/12/24 18:54 Coke # (Auto) 0.8 10^3/uL (0.0-1.0) 02/12/24 18:54 Eos # (Auto) 0.0 10^3/uL (0.0-0.7) 02/12/24 18:54 Baso # (Auto) 0.1 10^3/uL (0.0-0.1) 02/12/24 18:54 Absolute Nucleated RBC 0.00 x10^3/uL 02/12/24 18:54 Nucleated RBC % 0.0 /100WBC 02/12/24 18:54 VBG pH 7.345 (7.31-7.41) 02/12/24 18:54 VBG pCO2 40.3 mmHg (41-51) L 02/12/24 18:54 VBG pO2 36.3 mmHg (25-47) 02/12/24 18:54 VBG HCO3 21.5 mmol/L (23-28) L 02/12/24 18:54 VBG Total CO2 22.7 mmol/L (24-29) L 02/12/24 18:54 VBG O2 Saturation 65.5 % (60-80) 02/12/24 18:54 VBG Base Excess -3.9 mmol/L (-2 - +2) L 02/12/24 18:54 Sodium 142 mmol/L (135-145) 02/13/24 05:20 Potassium 4.8 mmol/L (3.5-4.5) H 02/13/24 05:20 Chloride 111 mmol/L (101-111) 02/13/24 05:20 Carbon Dioxide 26 mmol/L (21-32) 02/13/24 05:20 Anion Gap 5.0 (6-13) L 02/13/24 05:20 BUN 23 mg/dL (6-20) H 02/13/24 05:20 Creatinine 0.9 mg/dL (0.6-1.3) 02/13/24 05:20 Estimated GFR (MDRD) 81 (>89) L 02/13/24 05:20 Glucose 164 mg/dL (74-104) H 02/13/24 05:20 Calcium 9.1 mg/dL (8.5-10.3) 02/13/24 05:20 Phosphorus 3.6 mg/dL (2.5-5.0) 02/12/24 18:54 Magnesium 1.6 mg/dL (1.7-2.3) L 02/12/24 18:54 Total Bilirubin 0.9 mg/dL (0.2-1.0) 02/12/24 18:54 AST 35 IU/L (10-42) 02/12/24 18:54 ALT 33 IU/L (10-60) 02/12/24 18:54 Alkaline Phosphatase 97 IU/L (42-121) 02/12/24 18:54 Total Protein 6.3 g/dL (6.4-8.9) L 02/12/24 18:54 Albumin 3.6 g/dL (3.2-5.5) 02/12/24 18:54 Globulin 2.7 g/dL (2.1-4.2) 02/12/24 18:54 Albumin/Globulin Ratio 1.3 (1.0-2.2) 02/12/24 18:54 Nasal Adenovirus (PCR) NOT DETECTED 02/12/24 19:49 Nasal B. parapertussis DNA (PCR) NOT DETECTED 02/12/24 19:49 Nasal Coronavir 229E PCR NOT DETECTED 02/12/24 19:49 Nasal Coronavir HKU1 PCR NOT DETECTED 02/12/24 19:49 Nasal Coronavir NL63 PCR NOT DETECTED 02/12/24 19:49 Nasal Coronavir OC43 PCR NOT DETECTED 02/12/24 19:49 Nasal Enterovir/Rhinovir PCR DETECTED A 02/12/24 19:49 Nasal Influenza B PCR NOT DETECTED 02/12/24 19:49 Nasal Influenza A PCR NOT DETECTED 02/12/24 19:49 Nasal Parainfluen 1 PCR NOT DETECTED 02/12/24 19:49 Nasal Parainfluen 2 PCR NOT DETECTED 02/12/24 19:49 Nasal Parainfluen 3 PCR NOT DETECTED 02/12/24 19:49 Nasal Parainfluen 4 PCR NOT DETECTED 02/12/24 19:49 Nasal RSV (PCR) NOT DETECTED 02/12/24 19:49 Nasal B.pertussis DNA PCR NOT DETECTED 02/12/24 19:49 Nasal C.pneumoniae (PCR) NOT DETECTED 02/12/24 19:49 Tarun Human Metapneumo PCR NOT DETECTED 02/12/24 19:49 Nasal M.pneumoniae (PCR) NOT DETECTED 02/12/24 19:49 Nasal SARS-CoV-2 (PCR) DETECTED A 02/12/24 19:49 Sepsis Event Note (H) - Evaluation Current Stage of Sepsis: Sepsis Possible source of Sepsis: positive: Pulmonary - Sepsis Criteria Sepsis Criteria: Respiratory: Increasing oxygen requirements, WBC count greater than 12,000 or less than 4000
[2024-02-13] MEDS ORDERED: cefTRIAXone 1 GM VIAL IVP SCH (09:00)
[2024-02-13] MEDS: cefTRIAXone 1 GM in SODIUM CHLORIDE 0.9% MINIBAG 100 ML IV SCH (09:24)
--- NOTE | 2024-02-13 14:41 | PHARMACY PROGRESS NOTE ---
- Best Possible Medication History Admit Date and Time: 02/13/24 1413 Processed by: Pharmacy Medications reviewed in ED?: No Medication History completed: Yes Patient Interview: Pt unable to participate Secondary Source(s): Spouse/Significant other Medication list updated with patient's , Radha. Radha states that patient is no longer taking any pills and sometimes remembers to use his inhaler. Removed most medications from his home medication list. As the person ultimately responsible for medication therapy, providers are able to order a medication from an existing home medication list in [facility] via the "Reconcile Routine" prior to Confirmation of that medication by product support specialist. Such practice is discouraged except when the physician, in their clinical judgment, deems that a medical need exists for a medication without regard to previous use.
[2024-02-14 05:27] LABS: HCT - HEMATOCRIT 39.4 % (42.0-52.0); HGB - HEMOGLOBIN 12.2 g/dL (14.0-18.0); MEAN CORPUSCULAR HEMOGLOBIN 29.9 pg (27.0-31.0); MEAN CORPUSCULAR VOLUME 96.6 fL (80.0-94.0); MEAN PLATELET VOLUME 10.2 fL (7.4-11.4); RED BLOOD COUNT 4.08 10^6/uL (4.70-6.10); RED CELL DISTRIBUTION WIDTH 14.2 % (12.0-15.0)
[2024-02-14 05:44] LABS: CREATININE 0.8 mg/dL (0.6-1.3); POTASSIUM 4.2 mmol/L (3.5-4.5)
[2024-02-14] MEDS: ZINC OXIDE 12% OINT 57 GM TUBE TOP PRN (08:41)
[2024-02-14] MEDS: methylPREDNISolone SUCCINATE 40 MG/ML VIAL IVP SCH (08:41)
[2024-02-14] MEDS: ACETAMINOPHEN 325 MG TABLET PO PRN (10:03)
--- NOTE | 2024-02-14 12:44 | PROVIDER PROGRESS NOTE ---
Assessment/Plan - Problem List (1) Acute and chronic respiratory failure Assessment/Plan: Plan: Continue to monitor oxygen saturation with goal of maintaining oxygen saturation between 88 and 92%. Wean oxygen as tolerated. (2) COPD Exacerbation Comments: Patient had an episode of shortness of breath during the night and reports his symptoms have since resolved. He reports this happens frequently at night. We discussed the fact the patient has severe end-stage COPD and that most likely his symptoms will continue to happen frequently at night. Patient was offered morphine to be initiated for comfort and at this time the patient has decided he does not want to start morphine. Patient encouraged to let us know if he changes his mind. Plan: Continue IV Solu-Medrol 40 mg daily Continue DuoNeb. (3) COVID Pneumonia Comments: Leukocytosis has increased overnight and has gone from 12.2 K to 14 K. Continue to monitor white blood cell count intermittently. Continue empiric antibiotic coverage. Plan: Continue empiric antibiotic coverage with ceftriaxone for possible secondary bacterial pneumonia. Continue to monitor leukocytosis. (4) Lung mass Comments: CT scan of the chest reveals severe end-stage emphysematous changes. There is a spiculated mass medially located in the lingula. Plan: Discussed the results of CT scan with patient. We discussed the risk-benefit ratio of performing a CT fine-needle biopsy and patient wishes to defer any biopsy at this time. (5) Sepsis Comments: National early warning score is 10 and is consistent with sepsis. Continue to treat with empiric antibiotics and monitor vital signs. (6) Goals of Care Comments: During our visit we discussed the fact that patient has severe end-stage COPD. In the event of a cardiopulmonary arrest he would not want chest compressions, defibrillation or artificial life support with mechanical ventilation. Patient reports that it is highly unlikely he would want to receive any further workup for his lung mass. Currently he has made no decisions with regards to hospice. He was informed he can initiate hospice at any time. - Current Meds Current Meds: Current Medications Generic Name Dose Route Start Last Admin Trade Name Freq PRN Reason Stop Dose Admin Acetaminophen 650 mg 02/12/24 20:22 02/14/24 10:03 Acetaminophen 325 Mg Tablet PO 650 mg Q4HR PRN Administration Pain 1 to 4, or Fever Ceftriaxone Sodium 1 gm/ 100 mls @ 200 mls/hr 02/13/24 10:00 02/14/24 12:20 Sodium Chloride IV 02/16/24 09:29 200 mls/hr DAILY EDEL Administration Methylprednisolone 40 mg 02/14/24 09:00 02/14/24 08:41 Methylprednisolone Succinate 40 Mg/Ml Vial IVP 40 mg DAILY EDEL Administration Multi-Ingredient Ointment 1 applic 02/14/24 06:48 02/14/24 08:41 Zinc Oxide 12% Oint 57 Gm Tube TOP 1 applic PRN PRN Administration Skin Care Sodium Chloride 10 ml 02/13/24 01:00 02/14/24 08:42 Sodium Chloride Flush 0.9% 10 Ml Syringe IVP 10 ml 0100,0900,1700 EDEL Administration - Lab Result Fish Bone Diagrams: 02/14/24 05:06 02/14/24 05:06 - Additional Planning My Orders: My Active Orders 02/14/24 06:48 Zinc Oxide [Batsheva Protect] 1 applic TOP PRN PRN 02/14/24 09:00 methylPREDNISolone SUCCINATE [SOLU-Medrol (40MG VIAL)] 40 mg IVP DAILY 02/14/24 Lunch Dysphagia - Minced and Moist [DIET] Subjective - Subjective Patient Reports: Other (Alert. Reports he had shortness of breath during the night that is improved this morning. He reports he can walk approximately 10 feet before having to stop. He denies chest pain and abdominal pain. He has no other complaints at this time.) Objective Vital Signs: Vital Signs - 24 hr 02/13/24 02/13/24 02/13/24 13:00 16:49 20:37 Temperature 36.8 C 36.5 C 36.5 C Heart Rate [ 85 78 84 Brachial] Respiratory 22 16 20 Rate Blood Pressure 100/69 121/83 H 105/64 [Right Brachial artery] O2 Saturation 92 92 92 If not protocol 10 6 10 : Oxygen Flow, liters/minute 02/13/24 02/14/24 02/14/24 23:00 00:10 00:30 Temperature 36.6 C Heart Rate [ 88 90 Brachial] Respiratory 22 20 Rate Blood Pressure 127/78 [Right Brachial artery] O2 Saturation 88 L 94 If not protocol 6 9 9 : Oxygen Flow, liters/minute 02/14/24 02/14/24 02/14/24 01:30 01:54 02:22 Temperature Heart Rate [ 88 78 64 Brachial] Respiratory 20 18 Rate Blood Pressure [Right Brachial artery] O2 Saturation 93 94 100 If not protocol 8 8 8 : Oxygen Flow, liters/minute 02/14/24 02/14/24 02/14/24 02:23 03:05 03:10 Temperature Heart Rate [ 65 Brachial] Respiratory Rate Blood Pressure [Right Brachial artery] O2 Saturation 95 76 L 87 L If not protocol 6 6 6 : Oxygen Flow, liters/minute 02/14/24 02/14/24 02/14/24 03:12 03:14 03:16 Temperature Heart Rate [ Brachial] Respiratory Rate Blood Pressure [Right Brachial artery] O2 Saturation 88 L 91 L 93 If not protocol 8 8 8 : Oxygen Flow, liters/minute 02/14/24 02/14/24 02/14/24 03:18 03:23 03:25 Temperature Heart Rate [ Brachial] Respiratory Rate Blood Pressure [Right Brachial artery] O2 Saturation 96 93 95 If not protocol 8 8 8 : Oxygen Flow, liters/minute 02/14/24 02/14/24 02/14/24 03:40 03:45 05:00 Temperature 36.4 C L Heart Rate [ 77 64 62 Brachial] Respiratory 20 21 Rate Blood Pressure 108/76 [Right Brachial artery] O2 Saturation 100 94 96 If not protocol 8 6 6 : Oxygen Flow, liters/minute 02/14/24 02/14/24 02/14/24 07:00 07:56 12:18 Temperature 37 C 36.8 C Heart Rate [ 78 72 Brachial] Respiratory 20 20 Rate Blood Pressure 116/71 106/70 [Right Brachial artery] O2 Saturation 90 L 94 If not protocol 6 6 6 : Oxygen Flow, liters/minute Oxygen O2 Source [With Activity] Nasal cannula O2 Source Oxymizer Oxygen Flow Rate 15 I&O (Last 24 Hrs): Intake and Output Totals x24h 02/12/24 02/13/24 02/14/24 23:59 23:59 23:59 Intake Total 300 1040 440 Output Total 125 250 650 Balance 175 790 -210 General: Alert, Oriented x3, No acute distress HEENT: Atraumatic Neck: Supple, No JVD Neuro: Alert, Non Focal Cardiovascular: Other (Positive S1-S2 no extra heart sounds.) Respiratory: Other (Fair air exchange in all lung navas. No wheezing no crackles.) Abdomen: Other (Soft nontender nondistended positive bowel sounds.) Extremities: No cyanosis, No edema Skin: No rashes - Results Results: Laboratory Results WBC 14.0 x10^3/uL (4.8-10.8) H 02/14/24 05:06 RBC 4.08 10^6/uL (4.70-6.10) L 02/14/24 05:06 Hgb 12.2 g/dL (14.0-18.0) L 02/14/24 05:06 Hct 39.4 % (42.0-52.0) L 02/14/24 05:06 MCV 96.6 fL (80.0-94.0) H 02/14/24 05:06 MCH 29.9 pg (27.0-31.0) 02/14/24 05:06 MCHC 31.0 g/dL (32.0-36.0) L 02/14/24 05:06 RDW 14.2 % (12.0-15.0) 02/14/24 05:06 Plt Count 187 10^3/uL (130-450) 02/14/24 05:06 MPV 10.2 fL (7.4-11.4) 02/14/24 05:06 Neut # (Auto) 10.3 10^3/uL (1.5-6.6) H 02/12/24 18:54 Lymph # (Auto) 0.9 10^3/uL (1.5-3.5) L 02/12/24 18:54 Dodge # (Auto) 0.8 10^3/uL (0.0-1.0) 02/12/24 18:54 Eos # (Auto) 0.0 10^3/uL (0.0-0.7) 02/12/24 18:54 Baso # (Auto) 0.1 10^3/uL (0.0-0.1) 02/12/24 18:54 Absolute Nucleated RBC 0.00 x10^3/uL 02/12/24 18:54 Nucleated RBC % 0.0 /100WBC 02/12/24 18:54 VBG pH 7.345 (7.31-7.41) 02/12/24 18:54 VBG pCO2 40.3 mmHg (41-51) L 02/12/24 18:54 VBG pO2 36.3 mmHg (25-47) 02/12/24 18:54 VBG HCO3 21.5 mmol/L (23-28) L 02/12/24 18:54 VBG Total CO2 22.7 mmol/L (24-29) L 02/12/24 18:54 VBG O2 Saturation 65.5 % (60-80) 02/12/24 18:54 VBG Base Excess -3.9 mmol/L (-2 - +2) L 02/12/24 18:54 Sodium 139 mmol/L (135-145) 02/14/24 05:06 Potassium 4.2 mmol/L (3.5-4.5) 02/14/24 05:06 Chloride 107 mmol/L (101-111) 02/14/24 05:06 Carbon Dioxide 28 mmol/L (21-32) 02/14/24 05:06 Anion Gap 4.0 (6-13) L 02/14/24 05:06 BUN 29 mg/dL (6-20) H 02/14/24 05:06 Creatinine 0.8 mg/dL (0.6-1.3) 02/14/24 05:06 Estimated GFR (MDRD) 93 (>89) 02/14/24 05:06 Glucose 95 mg/dL (74-104) 02/14/24 05:06 Calcium 9.0 mg/dL (8.5-10.3) 02/14/24 05:06 Phosphorus 3.6 mg/dL (2.5-5.0) 02/12/24 18:54 Magnesium 1.6 mg/dL (1.7-2.3) L 02/12/24 18:54 Total Bilirubin 0.9 mg/dL (0.2-1.0) 02/12/24 18:54 AST 35 IU/L (10-42) 02/12/24 18:54 ALT 33 IU/L (10-60) 02/12/24 18:54 Alkaline Phosphatase 97 IU/L (42-121) 02/12/24 18:54 Total Protein 6.3 g/dL (6.4-8.9) L 02/12/24 18:54 Albumin 3.6 g/dL (3.2-5.5) 02/12/24 18:54 Globulin 2.7 g/dL (2.1-4.2) 02/12/24 18:54 Albumin/Globulin Ratio 1.3 (1.0-2.2) 02/12/24 18:54 Nasal Adenovirus (PCR) NOT DETECTED 02/12/24 19:49 Nasal B. parapertussis DNA (PCR) NOT DETECTED 02/12/24 19:49 Nasal Coronavir 229E PCR NOT DETECTED 02/12/24 19:49 Nasal Coronavir HKU1 PCR NOT DETECTED 02/12/24 19:49 Nasal Coronavir NL63 PCR NOT DETECTED 02/12/24 19:49 Nasal Coronavir OC43 PCR NOT DETECTED 02/12/24 19:49 Nasal Enterovir/Rhinovir PCR DETECTED A 02/12/24 19:49 Nasal Influenza B PCR NOT DETECTED 02/12/24 19:49 Nasal Influenza A PCR NOT DETECTED 02/12/24 19:49 Nasal Parainfluen 1 PCR NOT DETECTED 02/12/24 19:49 Nasal Parainfluen 2 PCR NOT DETECTED 02/12/24 19:49 Nasal Parainfluen 3 PCR NOT DETECTED 02/12/24 19:49 Nasal Parainfluen 4 PCR NOT DETECTED 02/12/24 19:49 Nasal RSV (PCR) NOT DETECTED 02/12/24 19:49 Nasal B.pertussis DNA PCR NOT DETECTED 02/12/24 19:49 Nasal C.pneumoniae (PCR) NOT DETECTED 02/12/24 19:49 Tarun Human Metapneumo PCR NOT DETECTED 02/12/24 19:49 Nasal M.pneumoniae (PCR) NOT DETECTED 02/12/24 19:49 Nasal SARS-CoV-2 (PCR) DETECTED A 02/12/24 19:49 Sepsis Event Note (H) - Evaluation Current Stage of Sepsis: Sepsis Possible source of Sepsis: positive: Pulmonary - Sepsis Criteria Sepsis Criteria: Respiratory: Increasing oxygen requirements, WBC count greater than 12,000 or less than 4000
[2024-02-15] MEDS: IPRATROPIUM/ALBUTEROL 3 ML NEB INH PRN (00:31)
[2024-02-15 03:57] LABS: BILIRUBIN,URINE NEGATIVE (NEGATIVE); GLUCOSE, URINE (UA) NEGATIVE (NEGATIVE); KETONES,URINE (UA) NEGATIVE (NEGATIVE); LEUKOCYTE ESTERASE, URINE NEGATIVE (NEGATIVE); NITRITE,URINE NEGATIVE (NEGATIVE); OCCULT BLOOD,URINE NEGATIVE (NEGATIVE); PROTEIN,URINE NEGATIVE (NEGATIVE); UROBILINOGEN,URINE 0.2 (NORMAL) E.U./dL (NORMAL)
[2024-02-15 03:58] LABS: CLARITY,URINE CLEAR (CLEAR)
[2024-02-15 04:19] LABS: BACTERIA,URINE Rare /HPF (None Seen); RBC,URINE 0-5 /HPF (0-5); SQUAMOUS EPITHELIAL CELL,UR FEW Squamous (<= Few); WBC,URINE 0-3 /HPF (0-3)
[2024-02-15] MEDS: SENNA 8.6 MG TABLET PO SCH (12:15)
[2024-02-15] MEDS: DOCUSATE SODIUM 250 MG CAPSULE PO SCH (12:15)
--- NOTE | 2024-02-15 12:15 | PROVIDER PROGRESS NOTE ---
Assessment/Plan - Problem List (1) Acute and chronic respiratory failure Assessment/Plan: Continue to monitor oxygen saturation with goal of maintaining oxygen saturation between 88 and 92%. Wean oxygen as tolerated. (2) COPD Exacerbation Comments: Patient had an episode of shortness of breath during the night and reports his symptoms have since resolved. He reports this happens frequently at night and he has had difficulty every night during his hospitalization. We discussed the fact the patient has severe end-stage COPD and that most likely his symptoms will continue to happen frequently at night. He has reconsidered hospice and is willing to initiate hospice at this time. He requested that I contact his , Radha, and I had a discussion with her. She also feels that he would benefit from hospice. Plan: Continue IV Solu-Medrol 40 mg daily Continue DuoNeb. He is currently not at his baseline from an oxygen saturation/oxygen flow rate standpoint. Plan is to wean his oxygen to baseline as tolerated. Hospice consult ordered to initiate hospice Treatment initiated with morphine for symptoms of dyspnea. (3) COVID Pneumonia Comments: Leukocytosis has increased overnight and has gone from 12.2 K to 14 K. Continue to monitor white blood cell count intermittently. Continue empiric antibiotic coverage. Plan: Continue empiric antibiotic coverage with ceftriaxone for possible secondary bacterial pneumonia. Continue to monitor leukocytosis. (4) Lung mass Comments: CT scan of the chest reveals severe end-stage emphysematous changes. There is a spiculated mass medially located in the lingula. Plan: Discussed the results of CT scan with patient. We discussed the risk-benefit ratio of performing a CT fine-needle biopsy and patient wishes to defer any biopsy or workup at this time. Plan is to initiate hospice. (5) Sepsis Comments: Sepsis has resolved. (6) Goals of Care Comments: During our visit we discussed the fact that patient has severe end-stage COPD. In the event of a cardiopulmonary arrest he would not want chest compressions, defibrillation or artificial life support with mechanical ventilation. Patient reports that it is highly unlikely he would want to receive any further workup for his lung mass. He and his have decided to initiate hospice. A hospice has been placed. Anticipate discharge tomorrow with goal of returning to baseline oxygenation and initiation of morphine for dyspnea. - Current Meds Current Meds: Current Medications Generic Name Dose Route Start Last Admin Trade Name Freq PRN Reason Stop Dose Admin Acetaminophen 650 mg 02/12/24 20:22 02/14/24 10:03 Acetaminophen 325 Mg Tablet PO 650 mg Q4HR PRN Administration Pain 1 to 4, or Fever Albuterol/Ipratropium 3 ml 02/12/24 20:26 02/15/24 00:31 Ipratropium/Albuterol 3 Ml Neb INH 3 ml Q4HR PRN Administration Wheezing Ceftriaxone Sodium 1 gm/ 100 mls @ 200 mls/hr 02/13/24 10:00 02/15/24 09:20 Sodium Chloride IV 02/16/24 09:29 Infused DAILY EDEL Infusion Methylprednisolone 40 mg 02/14/24 09:00 02/15/24 08:45 Methylprednisolone Succinate 40 Mg/Ml Vial IVP 40 mg DAILY EDEL Administration Multi-Ingredient Ointment 1 applic 02/14/24 06:48 02/14/24 08:41 Zinc Oxide 12% Oint 57 Gm Tube TOP 1 applic PRN PRN Administration Skin Care Sodium Chloride 10 ml 02/13/24 01:00 02/15/24 08:51 Sodium Chloride Flush 0.9% 10 Ml Syringe IVP 10 ml 0100,0900,1700 EDEL Administration - Lab Result Fish Bone Diagrams: 02/14/24 05:06 02/14/24 05:06 - Additional Planning My Orders: My Active Orders 02/14/24 Lunch Dysphagia - Minced and Moist [DIET] 02/15/24 Hospice Referral (Coordinate Admission by Hospice Office Staff) [CONS] Routine Social Work Consult [CONS] Routine 02/15/24 00:30 RT [Nebulizer/MDI Tx.] [RC] QID 02/15/24 11:57 Senna [Senokot] 8.6 mg PO DAILY 02/15/24 12:00 Docusate Sodium 250Mg Capsule [Colace 250Mg Capsule] 250 mg PO DAILY Subjective - Subjective Patient Reports: Other (He reports his breathing is closer to his baseline. He continues to wake up with symptoms of shortness of breath. He denies chest pain and abdominal pain. He has no other complaints at this time.Alert and oriented to person time place and situation.) Objective Vital Signs: Vital Signs - 24 hr 02/14/24 02/14/24 02/14/24 12:18 16:38 16:52 Temperature 36.8 C 36.8 C Heart Rate Heart Rate [ 72 56 L Brachial] Respiratory 20 20 Rate Blood Pressure [Left Brachial artery] Blood Pressure 106/70 106/69 [Right Brachial artery] O2 Saturation 94 90 L If not protocol 6 40 40 : Oxygen Flow, liters/minute 02/14/24 02/14/24 02/14/24 17:40 20:49 22:10 Temperature 36.7 C Heart Rate Heart Rate [ 91 Brachial] Respiratory 20 Rate Blood Pressure [Left Brachial artery] Blood Pressure 96/70 [Right Brachial artery] O2 Saturation 91 L If not protocol 35 35 35 : Oxygen Flow, liters/minute 02/14/24 02/15/24 02/15/24 23:39 00:30 04:49 Temperature 36.4 C L 36.8 C Heart Rate 82 Heart Rate [ 75 67 Brachial] Respiratory 20 22 18 Rate Blood Pressure 107/59 L 98/59 L [Left Brachial artery] Blood Pressure [Right Brachial artery] O2 Saturation 94 100 If not protocol 35 35 35 : Oxygen Flow, liters/minute 02/15/24 02/15/24 02/15/24 07:00 08:25 12:05 Temperature 36.5 C 36.7 C Heart Rate Heart Rate [ 68 56 L Brachial] Respiratory 20 20 Rate Blood Pressure 106/63 102/61 [Left Brachial artery] Blood Pressure [Right Brachial artery] O2 Saturation 93 93 If not protocol 35 35 8 : Oxygen Flow, liters/minute Oxygen O2 Source [With Activity] Nasal cannula O2 Source Oxymizer Oxygen Flow Rate 15 I&O (Last 24 Hrs): Intake and Output Totals x24h 02/13/24 02/14/24 02/15/24 23:59 23:59 23:59 Intake Total 1040 1020 100 Output Total 250 975 700 Balance 790 45 -600 General: Alert, Oriented x3 HEENT: Atraumatic, PERRLA Neck: Supple, No JVD Neuro: Alert, Non Focal Cardiovascular: Other (Positive S1-S2 no extra heart sounds.) Respiratory: Other (Fair/poor air exchange in all lung navas. No significant change. No wheezing no crackles.) Abdomen: Other (Soft nontender nondistended positive bowel sounds) Extremities: No cyanosis, No edema Skin: No rashes - Results Results: Laboratory Results WBC 14.0 x10^3/uL (4.8-10.8) H 02/14/24 05:06 RBC 4.08 10^6/uL (4.70-6.10) L 02/14/24 05:06 Hgb 12.2 g/dL (14.0-18.0) L 02/14/24 05:06 Hct 39.4 % (42.0-52.0) L 02/14/24 05:06 MCV 96.6 fL (80.0-94.0) H 02/14/24 05:06 MCH 29.9 pg (27.0-31.0) 02/14/24 05:06 MCHC 31.0 g/dL (32.0-36.0) L 02/14/24 05:06 RDW 14.2 % (12.0-15.0) 02/14/24 05:06 Plt Count 187 10^3/uL (130-450) 02/14/24 05:06 MPV 10.2 fL (7.4-11.4) 02/14/24 05:06 Neut # (Auto) 10.3 10^3/uL (1.5-6.6) H 02/12/24 18:54 Lymph # (Auto) 0.9 10^3/uL (1.5-3.5) L 02/12/24 18:54 Dawson # (Auto) 0.8 10^3/uL (0.0-1.0) 02/12/24 18:54 Eos # (Auto) 0.0 10^3/uL (0.0-0.7) 02/12/24 18:54 Baso # (Auto) 0.1 10^3/uL (0.0-0.1) 02/12/24 18:54 Absolute Nucleated RBC 0.00 x10^3/uL 02/12/24 18:54 Nucleated RBC % 0.0 /100WBC 02/12/24 18:54 VBG pH 7.345 (7.31-7.41) 02/12/24 18:54 VBG pCO2 40.3 mmHg (41-51) L 02/12/24 18:54 VBG pO2 36.3 mmHg (25-47) 02/12/24 18:54 VBG HCO3 21.5 mmol/L (23-28) L 02/12/24 18:54 VBG Total CO2 22.7 mmol/L (24-29) L 02/12/24 18:54 VBG O2 Saturation 65.5 % (60-80) 02/12/24 18:54 VBG Base Excess -3.9 mmol/L (-2 - +2) L 02/12/24 18:54 Sodium 139 mmol/L (135-145) 02/14/24 05:06 Potassium 4.2 mmol/L (3.5-4.5) 02/14/24 05:06 Chloride 107 mmol/L (101-111) 02/14/24 05:06 Carbon Dioxide 28 mmol/L (21-32) 02/14/24 05:06 Anion Gap 4.0 (6-13) L 02/14/24 05:06 BUN 29 mg/dL (6-20) H 02/14/24 05:06 Creatinine 0.8 mg/dL (0.6-1.3) 02/14/24 05:06 Estimated GFR (MDRD) 93 (>89) 02/14/24 05:06 Glucose 95 mg/dL (74-104) 02/14/24 05:06 Calcium 9.0 mg/dL (8.5-10.3) 02/14/24 05:06 Phosphorus 3.6 mg/dL (2.5-5.0) 02/12/24 18:54 Magnesium 1.6 mg/dL (1.7-2.3) L 02/12/24 18:54 Total Bilirubin 0.9 mg/dL (0.2-1.0) 02/12/24 18:54 AST 35 IU/L (10-42) 02/12/24 18:54 ALT 33 IU/L (10-60) 02/12/24 18:54 Alkaline Phosphatase 97 IU/L (42-121) 02/12/24 18:54 Total Protein 6.3 g/dL (6.4-8.9) L 02/12/24 18:54 Albumin 3.6 g/dL (3.2-5.5) 02/12/24 18:54 Globulin 2.7 g/dL (2.1-4.2) 02/12/24 18:54 Albumin/Globulin Ratio 1.3 (1.0-2.2) 02/12/24 18:54 Urine Color YELLOW 02/15/24 03:45 Urine Clarity CLEAR (CLEAR) 02/15/24 03:45 Urine pH 6.0 PH (5.0-7.5) 02/15/24 03:45 Ur Specific Frederick 1.015 (1.002-1.030) 02/15/24 03:45 Urine Protein NEGATIVE mg/dL (NEGATIVE) 02/15/24 03:45 Urine Glucose (UA) NEGATIVE mg/dL (NEGATIVE) 02/15/24 03:45 Urine Ketones NEGATIVE mg/dL (NEGATIVE) 02/15/24 03:45 Urine Occult Blood NEGATIVE (NEGATIVE) 02/15/24 03:45 Urine Nitrite NEGATIVE (NEGATIVE) 02/15/24 03:45 Urine Bilirubin NEGATIVE (NEGATIVE) 02/15/24 03:45 Urine Urobilinogen 0.2 (NORMAL) E.U./dL (NORMAL) 02/15/24 03:45 Ur Leukocyte Esterase NEGATIVE (NEGATIVE) 02/15/24 03:45 Urine RBC 0-5 /HPF (0-5) 02/15/24 03:45 Urine WBC 0-3 /HPF (0-3) 02/15/24 03:45 Ur Squamous Epith Cells FEW Squamous (<= Few) 02/15/24 03:45 Urine Bacteria Rare /HPF (None Seen) 02/15/24 03:45 Nasal Adenovirus (PCR) NOT DETECTED 02/12/24 19:49 Nasal B. parapertussis DNA (PCR) NOT DETECTED 02/12/24 19:49 Nasal Coronavir 229E PCR NOT DETECTED 02/12/24 19:49 Nasal Coronavir HKU1 PCR NOT DETECTED 02/12/24 19:49 Nasal Coronavir NL63 PCR NOT DETECTED 02/12/24 19:49 Nasal Coronavir OC43 PCR NOT DETECTED 02/12/24 19:49 Nasal Enterovir/Rhinovir PCR DETECTED A 02/12/24 19:49 Nasal Influenza B PCR NOT DETECTED 02/12/24 19:49 Nasal Influenza A PCR NOT DETECTED 02/12/24 19:49 Nasal Parainfluen 1 PCR NOT DETECTED 02/12/24 19:49 Nasal Parainfluen 2 PCR NOT DETECTED 02/12/24 19:49 Nasal Parainfluen 3 PCR NOT DETECTED 02/12/24 19:49 Nasal Parainfluen 4 PCR NOT DETECTED 06/17/24 19:49 Nasal RSV (PCR) NOT DETECTED 02/12/24 19:49 Nasal B.pertussis DNA PCR NOT DETECTED 02/12/24 19:49 Nasal C.pneumoniae (PCR) NOT DETECTED 02/12/24 19:49 Tarun Human Metapneumo PCR NOT DETECTED 02/12/24 19:49 Nasal M.pneumoniae (PCR) NOT DETECTED 02/12/24 19:49 Nasal SARS-CoV-2 (PCR) DETECTED A 02/12/24 19:49 Sepsis Event Note (H) - Evaluation Current Stage of Sepsis: Sepsis Possible source of Sepsis: positive: Pulmonary - Sepsis Criteria Sepsis Criteria: Respiratory: Increasing oxygen requirements, WBC count greater than 12,000 or less than 4000
[2024-02-15 13:32] LABS: HCT - HEMATOCRIT 43.7 % (42.0-52.0); HGB - HEMOGLOBIN 13.8 g/dL (14.0-18.0); MEAN CORPUSCULAR HEMOGLOBIN 29.8 pg (27.0-31.0); MEAN CORPUSCULAR HGB CONC 31.6 g/dL (32.0-36.0); MEAN CORPUSCULAR VOLUME 94.4 fL (80.0-94.0); MEAN PLATELET VOLUME 10.1 fL (7.4-11.4); RED BLOOD COUNT 4.63 10^6/uL (4.70-6.10); RED CELL DISTRIBUTION WIDTH 13.9 % (12.0-15.0); WHITE BLOOD COUNT 13.8 x10^3/uL (4.8-10.8)
[2024-02-15] MEDS: MORPHINE SOL 10 MG/0.5 ML ORAL SYRINGE PO PRN (14:14)
--- NOTE | 2024-02-16 10:50 | Discharge Plan ---
Discharge Plan Problem Reviewed?: Yes Disposition: 01 Home, Self Care Condition: Fair Prescriptions: Morphine Oral Soln [Roxanol] 5 mg PO Q4HR #8 ml Docusate Sodium 250Mg Capsule [Colace 250Mg Capsule] 250 mg PO DAILY #30 cap Senna [Senokot] 8.6 mg PO DAILY #30 tab Diet: Regular Activity Restrictions: Activity as Tolerated Shower Restrictions: No Driving Restrictions: Yes Weight Bearing: Full Weight Instruction Topics: Hospice Dyspnea Care Health Concerns: Per Dr. Hien Hannah History and Physical: Mr. Morales is a 6o y/o gentleman with a history of copd, chronic respiratory failure on home oxygen at 8 L. He presented to the ED with complaints of worsening shortness of breath for a day duration. He denied any fevers or chills. He did have a non-productive cough. EMS noted he was hypoxic on his home oxygen and was titrated up to 12 liters. he received duonebs and steroids in route. In the ED, CT was obtained and demonstrate RUL infiltrates as well as multiple masses concerning for malignancy. During my evaluation, patient was resting comfortably. mild increased respiratory effort with noted muscle recruitment. No tripoding posture noted. My evaluation was performed using telehealth tools including live-video. Patient consent was obtained at the time of my interview. Hospital Course: Workup in the emergency room revealed that patient had COVID-10 pneumonia. Viral panel positive for COVID-19 and rhinovirus.Mr. Morales was admitted to the medical floor and treated with oxygen, bronchodilators, empiric antibiotics for a secondary bacterial pneumonia and intravenous corticosteroids. CT scan of the chest performed on admission revealed severe end-stage emphysematous changes and a spiculated mass medially located in the lingula. The results of the CT were discussed with the patient and we discussed the possibility of a biopsy of the mass. Patient stated he did not wish to pursue biopsy at this time. Goals of care were discussed with the patient and his throughout his hospitalization. He had an educational visit with hospice and after some discussion has decided to initiate hospice therapy. Hospice has been consulted. Patient will be discharged home on his home medications. His oxygenation is currently at his baseline and treatment will be initiated with morphine for shortness of breath as needed. Patient was also counseled to use senna and Colace while he is on opiate therapy. CODE STATUS is DO NOT RESUSCITATE. Plan of Treatment: 1. Take all medications as prescribed. 2. Continue to use oxygen continuously. 3. A hospice visit has been scheduled for next February 19. Care Goals: Goals of care at this time is comfort and hospice care Assessment: In summary, Mr. Morales is a 78-year-old man with severe end-stage lung disease. He can only walk approximately 10 to 20 feet at baseline while using 6 to 10 L/min of oxygen. CT scan performed during this admission revealed a lung mass. Patient has decided not to pursue any further workup. He has decided to be discharged to home with hospice. No Smoking: If you smoke, Please STOP! Call for help. Follow-up with: Myrtle Quijano MD [Primary Care Provider] -
--- NOTE | 2024-02-16 10:51 | DISCHARGE SUMMARY ---
Discharge Summary Admit Date: 02/12/24 Discharge Date: 02/16/24 Discharging Provider: Connor Carey MD Primary Care Provider: Myrtle Quijano MD Condition at Discharge: Fair Discharge Disposition: 01 Home, Self Care Discharge Facility Name: [facility] - DIAGNOSES Admission Diagnoses: (1) Sepsis (2) Pneumonia (3) Acute and chronic respiratory failure with hypoxia (4) Lung mass Discharge Diagnoses with Status of Each Condition: (1) Acute and chronic respiratory failure (2) COPD Exacerbation (3) COVID Pneumonia (4) Lung mass - HPI History of Present Illness: Per Dr. Hien Hannah History and Physical: Mr. Morales is a 6o y/o gentleman with a history of copd, chronic respiratory failure on home oxygen at 8 L. He presented to the ED with complaints of worsening shortness of breath for a day duration. He denied any fevers or chills. He did have a non-productive cough. EMS noted he was hypoxic on his home oxygen and was titrated up to 12 liters. he received duonebs and steroids in route. In the ED, CT was obtained and demonstrate RUL infiltrates as well as multiple masses concerning for malignancy. During my evaluation, patient was resting comfortably. mild increased respiratory effort with noted muscle recruitment. No tripoding posture noted. My evaluation was performed using telehealth tools including live-video. Patient c onsent was obtained at the time of my interview. - HOSPITAL COURSE Hospital Course: Workup in the emergency room revealed that patient had COVID-10 pneumonia. Viral panel positive for COVID-19 and rhinovirus.Mr. Morales was admitted to the medical floor and treated with oxygen, bronchodilators, empiric antibiotics for a secondary bacterial pneumonia and intravenous corticosteroids. CT scan of the chest performed on admission revealed severe end-stage emphysematous changes and a spiculated mass medially located in the lingula. The results of the CT were discussed with the patient and we discussed the possibility of a biopsy of the mass. Patient stated he did not wish to pursue biopsy at this time. Goals of care were discussed with the patient and his throughout his hospitalization. He had an educational visit with hospice and after some discussion has decided to initiate hospice therapy. Hospice has been consulted. Patient will be discharged home on his home medications. His oxygenation is currently at his baseline and treatment will be initiated with morphine for shortness of breath as needed. Patient was also counseled to use senna and Colace while he is on opiate therapy. CODE STATUS is DO NOT RESUSCITATE. - ALLERGIES Allergies/Adverse Reactions: Allergies Allergy/AdvReac Type Severity Reaction Status Date / Time bee pollen Allergy Unknown Verified 02/12/24 18:53 Penicillins Allergy Unknown Verified 02/12/24 18:53 - MEDICATIONS Home Medications: Ambulatory Orders Medication Instructions Recorded Confirmed Albuterol 2.5 mg INH RTQ4H PRN neb 09/03/19 02/13/24 Budesonide/Formoterol Fumarate 2 puffs PO BID 02/13/24 02/13/24 [Breyna 80-4.5 Mcg Inhaler] Ipratropium/Albuterol [Duoneb] 1 neb PO TID PRN 02/13/24 02/13/24 Docusate Sodium 250Mg Capsule 250 mg PO DAILY #30 cap 02/16/24 [Colace 250Mg Capsule] Morphine Oral Soln [Roxanol] 5 mg PO Q4HR #8 ml 02/16/24 Senna [Senokot] 8.6 mg PO DAILY #30 tab 02/16/24 - PHYSICAL EXAM AT DISCHARGE General Appearance: positive: No acute distress, Alert Eyes Bilateral: positive: Conjunctivae nml Neck: positive: No JVD, Trachea midline Respiratory: positive: Other (Fair/poor air exchange bilaterally. No wheezing no crackles.) Cardiovascular: positive: Other (Positive S1-S2 no extra heart sounds.) Abdomen: positive: Other (Soft nontender nondistended positive bowel sounds) Skin: positive: No rash Extremities: positive: Non-tender, No pedal edema - LABS Result Diagrams: 02/15/24 13:15 02/14/24 05:06 - SEPSIS Current Stage of Sepsis: Sepsis Possible source of Sepsis: Pulmonary Sepsis Criteria: Respiratory: Increasing oxygen requirements, WBC count greater than 12,000 or less than 4000 - FOLLOW UP Follow Up: Dr. Myrtle Quijano as needed. - TIME SPENT Time Spent in Discharge (Minutes): 31 (31 minutes were spent coordinating discharge for patient.)
[2024-02-16 16:03] VITALS: BP 109/69; O2SAT 95
== END 2024-02-16 16:10 | disposition home or self-care (01) | DRG 871 ==
LOC: EDUNIT# → ED 18:37 → MS2 20:22 → OBSVTOIN 02-13 14:13
PROVIDERS: ADMIT Hospitalist; ATTEND Internal Medicine
DX: A41.9 Sepsis, unspecified organism (principal); A41.89 Other specified sepsis; J12.82 Pneumonia due to coronavirus disease 2019; U07.1 COVID-19; J96.21 Acute and chronic respiratory failure with hypoxia; J15.9 Unspecified bacterial pneumonia; J44.1 Chronic obstructive pulmonary disease with (acute) exacerbation; J44.0 Chronic obstructive pulmonary disease with (acute) lower respiratory infection; E83.42 Hypomagnesemia; R91.8 Other nonspecific abnormal finding of lung field; I48.91 Unspecified atrial fibrillation; Z20.818 Contact with and (suspected) exposure to other bacterial communicable diseases; Z20.828 Contact with and (suspected) exposure to other viral communicable diseases; R32 Unspecified urinary incontinence; F17.200 Nicotine dependence, unspecified, uncomplicated; R65.20 Severe sepsis without septic shock; D72.829 Elevated white blood cell count, unspecified; Z66 Do not resuscitate; Z79.51 Long term (current) use of inhaled steroids; Z79.52 Long term (current) use of systemic steroids; Z79.899 Other long term (current) drug therapy; Z88.0 Allergy status to penicillin; Z99.81 Dependence on supplemental oxygen
CPT/HCPCS: 36415; 71275; 80048; 80053; 81001; 82803; 83735; 84100; 85025; 85027; 87086; 87633; 94640; 94664; 96365; 96366; 96367; 96368; 96376; 99285; A9270; G0378; Q9967